=== PATIENT | male | born 1960 | race Caucasian/White ===

== ENCOUNTER 2017-08-17 13:50 | Inpatient (IN) | payer OTHER ==
[2017-08-17] VITALS (11 sets, daily range): BP systolic 98–165; BP diastolic 61–88
[~2017-08-17] VITALS: Ht 190.5 cm; Wt 79.0 kg
[~2017-08-17 13:50] MED LIST: LEVO750T31 PO
--- NOTE | 2017-08-17 14:55 | RAD ---
Two-view chest x-ray History: Shortness of air. History of lung cancer chemotherapy and radiation therapy. Comparison: December 17, 2007. Findings: Bilateral upper lobe consolidative lung infiltrates and biapical pleural thickening is seen more prominent on the right side. Small left-sided pleural effusion and a larger small to moderate size right-sided pleural effusion are seen. There is a wedge-shaped infiltrate within the left lung base. This could be due to tenting of the left hemidiaphragm from scarring and volume loss if a partial pneumonectomy has been performed on the left side. If not, a left lung base nodular mass or infiltrate is possible. No pneumothorax is seen. The heart size and mediastinum are stable. A right IJ Port-A-Cath is in place and tip is seen within the lower SVC at the junction with right atrium. The osseous structures appear intact. IMPRESSION: Bilateral upper lobe consolidative lung infiltrate. Wedge-shaped infiltrate of the left lung base. Bilateral pleural effusions.
[2017-08-17] MEDS ORDERED: IPRATRPIUM/ALBUTEROL 0.5/2.5MG 3 ML NEBU. ONE (14:57)
[2017-08-17] MEDS ORDERED: ALBUTEROL SULFATE 2.5 MG/3 ML NEBU. CONT NEB ONE (15:00)
[2017-08-17] MEDS ORDERED: IV NORMAL SALINE 1,000ML 1,000 ML IV ONE (15:00)
[2017-08-17 15:46] LABS: BASO % 1 % (0-3); EOS # 0.1 x10^3/uL (0.0-0.7); EOS % 1 % (0-3); HEMATOCRIT 32.7 % (39.0-53.0); HEMOGLOBIN 11.2 g/dL (13.0-17.5); LYMPH # 0.7 x10^3/uL (1.0-4.8); LYMPH % 9 % (24-48); MEAN CORPUSCULAR HEMOGLOBIN 36 pg (25-35); MEAN CORPUSCULAR HGB CONC 34 g/dL (31-37); MEAN CORPUSCULAR VOLUME 104 fL (79-100); MONO # 1.2 x10^3/uL (0.0-1.1); MONO % 15 % (0-9); NEUT # 5.7 x10^3uL (1.8-7.7); NEUT % 74 % (31-73); PLATELET COUNT 343 x10^3/uL (140-400); RED BLOOD COUNT 3.15 x10^6/uL (4.30-5.70); RED CELL DISTRIBUTION WIDTH 14.2 % (11.5-14.5); WHITE BLOOD COUNT 7.7 x10^3/uL (4.0-11.0)
--- NOTE | 2017-08-17 15:51 | PHYS DOC ---
Past History Past Medical History: Cancer Past Surgical History: Appendectomy, Other Alcohol Use: Occasionally Drug Use: None Adult General Chief Complaint Chief Complaint: COUGH HPI HPI Patient is a 57 year old M who presents with cough congestion and shortness of breath over the past 3-4 days. He feels that his symptoms were gradual in onset and gradually worsening. He feels that his current symptoms are constant. He feels that his symptoms are significantly worse with minimal activity, for example walking 10 feet he becomes significantly short of breath. He does describe intermittent associated chest pain. His risk factors include a history of lung cancer with a partial lung resection. Review of Systems Review of Systems Constitutional: Denies fever, sweats or chills [] Eyes: Denies change in visual acuity, redness, or eye pain [] HENT: Denies nasal congestion or sore throat [] Respiratory: Negative except history of present illness Cardiovascular: No additional information not addressed in HPI [] GI: Denies abdominal pain, nausea, vomiting, bloody stools or diarrhea [] : Denies dysuria or hematuria [] Musculoskeletal: Denies back pain or joint pain [] Integument: Denies rash or skin lesions [] Neurologic: Denies headache, focal weakness or sensory changes [] Endocrine: Denies polyuria or polydipsia [] Family History Family History Noncontributory Current Medications Current Medications Medications reviewed Current Medications Medications (Trade) Dose Ordered Sig/Shawn Start Time Stop Time Status Last Admin Dose Admin Albuterol Sulfate (Ventolin) 10 mg 1X ONCE 08/17/17 15:00 08/17/17 15:11 DC 08/17/17 15:03 10 MG Albuterol/ Ipratropium (Duoneb) 3 ml STK-MED ONCE 08/17/17 14:57 08/17/17 14:58 DC Ceftriaxone Sodium 1 gm/ Sodium Chloride 50 ml @ 100 mls/hr 1X ONCE 08/17/17 15:30 08/17/17 15:59 Sodium Chloride 1,000 ml @ 1,000 mls/hr 1X ONCE 08/17/17 15:00 08/17/17 15:59 Allergies Allergies Allergies Coded Allergies Type Severity Reaction Last Updated Verified No Known Drug Allergies 08/17/17 No Physical Exam Physical Exam Constitutional: Well developed, well nourished, no acute distress, ill-appearing HENT: Normocephalic, atraumatic, bilateral external ears normal, oropharynx moist, no oral exudates, nose normal. [] Eyes: EOMI, conjunctiva normal, no discharge. [] Neck: Normal range of motion, no tenderness, supple, no stridor. [] Cardiovascular:Heart rate regular rhythm, Lungs & Thorax: Diminished breath sounds bilaterally with rhonchi and rales noted in bilateral upper lobes. Mild and story an extra wheezing noted Abdomen: Bowel sounds normal, soft, no tenderness, no masses, no pulsatile masses. [] Skin: Warm, dry, no erythema, no rash. [] Back: No tenderness, no CVA tenderness. [] Extremities: No tenderness, no cyanosis, no clubbing, ROM intact, no edema. [] Neurologic: Alert and oriented X 3, normal motor function, normal sensory function, no focal deficits noted. [] Psychologic: Affect normal, judgement normal, mood normal. [] Current Patient Data Vital Signs Vital Signs Date Time Temp Pulse Resp B/P (MAP) Pulse Ox O2 Delivery O2 Flow Rate FiO2 08/17/17 15:03 98 Room Air 08/17/17 14:15 125 22 136/77 (96) 08/17/17 14:15 98.2 Lab Results Laboratory Tests Test 08/17/17 15:36 White Blood Count 7.7 x10^3/uL (4.0-11.0) Red Blood Count 3.15 x10^6/uL (4.30-5.70) Hemoglobin 11.2 g/dL (13.0-17.5) Hematocrit 32.7 % (39.0-53.0) Mean Corpuscular Volume 104 fL (79-100) Mean Corpuscular Hemoglobin 36 pg (25-35) Mean Corpuscular Hemoglobin Concent 34 g/dL (31-37) Red Cell Distribution Width 14.2 % (11.5-14.5) Platelet Count 343 x10^3/uL (140-400) Neutrophils (%) (Auto) 74 % (31-73) Lymphocytes (%) (Auto) 9 % (24-48) Monocytes (%) (Auto) 15 % (0-9) Eosinophils (%) (Auto) 1 % (0-3) Basophils (%) (Auto) 1 % (0-3) Neutrophils # (Auto) 5.7 x10^3uL (1.8-7.7) Lymphocytes # (Auto) 0.7 x10^3/uL (1.0-4.8) Monocytes # (Auto) 1.2 x10^3/uL (0.0-1.1) Eosinophils # (Auto) 0.1 x10^3/uL (0.0-0.7) Basophils # (Auto) 0.0 x10^3/uL (0.0-0.2) Sodium Level 138 mmol/L (136-145) Potassium Level 3.7 mmol/L (3.5-5.1) Chloride Level 98 mmol/L (98-107) Carbon Dioxide Level 30 mmol/L (21-32) Anion Gap 10 (6-14) Blood Urea Nitrogen 8 mg/dL (8-26) Creatinine 0.9 mg/dL (0.7-1.3) Estimated GFR (Cockcroft-Gault) 87.0 Glucose Level 124 mg/dL (70-99) Lactic Acid Level 2.5 mmol/L (0.4-2.0) Calcium Level 9.4 mg/dL (8.5-10.1) Magnesium Level 1.4 mg/dL (1.8-2.4) EKG EKG [] Radiology/Procedures Radiology/Procedures Chest x-ray Impressions: Bilateral upper lobe consolidation, wedge shaped infiltrate in the left lung base, bilateral pleural effusions noted Course & Med Decision Making Course & Med Decision Making Pertinent Labs and Imaging studies reviewed. (See chart for details) Due to [place] history of lung cancer, extensive findings on chest x-ray, and minimal improvement with more than 3 breathing treatments in the emergency room inpatient management was recommended Dragon Disclaimer Dragon Disclaimer This chart was dictated in whole or in part using Voice Recognition software in a busy, high-work load, and often noisy Emergency Department environment. It may contain unintended and wholly unrecognized errors or omissions. Departure Departure: Impression: Primary Impression: Bilateral pleural effusion Additional Impression: Multifocal pneumonia Disposition: ADMITTED INPATIENT Condition: STABLE Referrals: NATALIE KINNEY MD (PCP) Problem Qualifiers NASIR CABALLERO MD Aug 17, 2017 15:51
[2017-08-17 15:56] LABS: CALCIUM 9.4 mg/dL (8.5-10.1); CREATININE 0.9 mg/dL (0.7-1.3); MAGNESIUM 1.4 mg/dL (1.8-2.4); POTASSIUM 3.7 mmol/L (3.5-5.1)
[2017-08-17] MEDS ORDERED: IV NORMAL SALINE 50ML 50 ML ONE ×3 (16:13→16:19)
[2017-08-17] MEDS ORDERED: cefTRIAXone SODIUM 1 GM VIAL IV ONE ×2 (16:13→16:19)
[2017-08-17] MEDS ORDERED: MAGNESIUM SULFATE 2GM 50 ML IV ONE (16:30)
[2017-08-17] MEDS ORDERED: AZITHROMYCIN 500 MG in IV NORMAL SALINE 250ML 250 ML IV SCH (17:00)
[2017-08-17] MEDS ORDERED: IOHEXOL 300 MG/ML 75 ML VIAL. IV ONE (17:00)
--- NOTE | 2017-08-17 17:24 | RAD ---
Chest CT with contrast Clinical indications: History of right upper lobe resection due to lung cancer. History of pneumonia. Abnormal chest x-ray today. Technique: After IV infusion of 75 cc of Omnipaque 300, helical CT scanning of the chest was performed. PQRS Compliance Statement: One or more of the following individualized dose reduction techniques were utilized for this examination: 1. Automated exposure control 2. Adjustment of the mA and/or kV according to patient size 3. Use of iterative reconstruction technique Comparison: None available. Findings: Moderate-sized right-sided pleural effusion and small left-sided pleural effusion is seen. The right upper lobe appears to have been surgically resected given the lack of a right upper lobe bronchus. There is infiltrate present within the hyperexpanded anterior aspect of the right lower lobe and there is an infiltrate present within the medial aspect of the hyperexpanded right middle lobe. There is a focal fluid collection within the anterior aspect of this portion of the right middle lobe. 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 Finding could be secondary to radiation pneumonitis. Certainly an underlying pneumonia may be present as well. There is a consolidative lung infiltrate within the left upper lobe. There is a small infiltrate present within the perihilar region of the superior segment of the left lower lobe. There is a small infiltrate present within the medial basal segment of the left lower lobe. Cicatricial bronchiectasis is present within the left upper lobe. No pneumothorax is seen. There is mild dilatation of the proximal thoracic esophagus. Small amount of food or debris is present within this portion of the rest of esophagus. No adrenal mass is evident. The spleen is not enlarged. There is a lymph node present within the right paratracheal region measuring 17 mm in size. No focal aneurysmal dilatation or dissection of the thoracic aorta is seen. Heart size is normal and no pericardial effusion is seen. Mild calcified atheromatous disease of the coronary arteries is seen. A small amount of pericardial effusion is seen. No osteolytic process is seen. IMPRESSION: Right upper lobe resection. Bilateral lung infiltrates with cicatricial bronchiectasis. The findings could reflect radiation pneumonitis but certainly underlying pneumonia may be present on either side. Moderate-sized right-sided pleural effusion and small left-sided pleural effusion. Normal heart size. Small pericardial effusion. Mild calcified atheromatous disease of the coronary arteries. 17 mm right paratracheal lymph node which may be reactive in nature but malignant metastatic lymphadenopathy is certainly possible given the patient's history. Mild dilatation of the thoracic esophagus. There is fluid or debris present within this portion of the thoracic esophagus. This may be secondary to esophageal dysmotility but a esophageal stricture is possible if there is swallowing difficulty. There does appear to be diffuse wall thickening of the thoracic esophagus. This may secondary to esophagitis.
[2017-08-17] MEDS ORDERED: OMEP20TA63 PO (18:02)
[2017-08-17] MEDS: IV NORMAL SALINE 1,000ML 1,000 ML IV SCH (19:32)
[2017-08-17] MEDS: AZITHROMYCIN 500 MG in IV NORMAL SALINE 250ML 250 ML IV SCH (19:59)
[2017-08-17] MEDS ORDERED: IV NORMAL SALINE 500ML 500 ML IV PRN (20:45)
[2017-08-17] MEDS ORDERED: NOREPINEPHRINE BITARTRATE 16 MG in IV NORMAL SALINE 250ML 250 ML IV PRN (20:45)
[2017-08-17] MEDS: NORMAL SALINE IV SCH ×2 (20:52→21:33)
[2017-08-17] MEDS: PANTOPRAZOLE 40 MG TABLET. PO SCH (20:52)
[2017-08-18] VITALS (9 sets, daily range): BP systolic 113–144; BP diastolic 63–74
[2017-08-18] MEDS: IV NORMAL SALINE 1,000ML 1,000 ML IV SCH ×2 (01:46→13:42)
[2017-08-18 05:51] LABS: CALCIUM 8.5 mg/dL (8.5-10.1); CREATININE 0.7 mg/dL (0.7-1.3); GFR 116.2; POTASSIUM 3.6 mmol/L (3.5-5.1)
[2017-08-18 06:11] LABS: BASO % 1 % (0-3); EOS # 0.1 x10^3/uL (0.0-0.7); EOS % 1 % (0-3); HEMATOCRIT 24.5 % (39.0-53.0); LYMPH # 0.2 x10^3/uL (1.0-4.8); LYMPH % 4 % (24-48); MEAN CORPUSCULAR HEMOGLOBIN 35 pg (25-35); MEAN CORPUSCULAR HGB CONC 34 g/dL (31-37); MEAN CORPUSCULAR VOLUME 104 fL (79-100); MONO # 0.9 x10^3/uL (0.0-1.1); MONO % 16 % (0-9); NEUT # 4.4 x10^3uL (1.8-7.7); NEUT % 78 % (31-73); PLATELET COUNT 262 x10^3/uL (140-400); RED BLOOD COUNT 2.36 x10^6/uL (4.30-5.70); RED CELL DISTRIBUTION WIDTH 13.9 % (11.5-14.5); WHITE BLOOD COUNT 5.7 x10^3/uL (4.0-11.0)
[2017-08-18 06:36] LABS: HEMOGLOBIN 8.4 g/dL (13.0-17.5)
[2017-08-18] MEDS: PANTOPRAZOLE 40 MG TABLET. PO SCH ×2 (08:41→21:20)
[2017-08-18] MEDS: MAGNESIUM SULFATE 2GM 50 ML IV SCH (08:43)
[2017-08-18] MEDS ORDERED: PNEUMOC CONJ VACC 23-VALENT 0.5 ML VIAL. VAX IM ONE (09:00)
[2017-08-18] MEDS: LACTOBACILLUS ACIDOPH & BULGAR 1 TABLET. PO SCH ×2 (11:21→21:20)
--- NOTE | 2017-08-18 14:21 | HP ---
ADMIT DATE: REASON FOR ADMISSION: Cough, shortness of breath. HISTORY OF PRESENT ILLNESS: This is a 57-year-old male with a history of lung cancer with a lung resection done one year ago. Reported a 3 to 4-day problem with cough, congestion, and shortness of breath. He did have a chest x-ray up at [place]. There was a delay in one day of it being read and he was called and told to come to the hospital. He has significant shortness of breath with exertion. PAST MEDICAL HISTORY: 1. Lung cancer one year ago, has had subsequent chemotherapy and radiation. 2. 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 SOCIAL HISTORY: He is a former smoker and quit 6 years ago. ALLERGIES: None. HOME MEDICATIONS: He was on Levaquin, which has been held and Prilosec being given for his esophagitis. HABITS: States again smoked, quit 6 years ago. 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 No drugs or alcohol. REVIEW OF SYSTEMS: He has had a 40-pound weight loss, some dysphagia, which has improved with dilatation of his esophagus. No fever, no sore throat as per HPI. OBJECTIVE: VITAL SIGNS: Height 75 inches, weight 170.31 pounds with a BMI of 21.7, blood pressure is 121/63, temperature 98.1, T-max is 98.9. He had a high pulse of 125, now it is down to 86 with hydration and did have one sat of 92% on room air, but otherwise has been 98% on room air. GENERAL: Color is slightly pale. HEENT: His eyes are clear. Nose patent. His tongue was moist. Posterior pharynx normal. NECK: Supple. No adenopathy. No supraclavicular adenopathy. LUNGS: Clear on the left, some crackles on the right. CARDIOVASCULAR: Regular rhythm and rate. ABDOMEN: Soft, nontender, no masses palpated. EXTREMITIES: Without edema, no cords. Negative Homans. LABORATORY DATA: CBC after hydration, his hemoglobin is 8.4, but did not know what his normal is and MCV is 104. Magnesium 1.4, now 1.7. His lactic acid was 3.3. His fibrinogen was 460. IMAGING DATA: CAT scan of the chest shows right upper lobe resection, bilateral lung infiltrates, probably some radiation pneumonitis, moderate-sized right pleural effusion, small pericardial effusion and does have some evidence of ____ dilatation and some possibly esophageal stricture. ASSESSMENT: 1. Pneumonia. 2. Bilateral lung infiltrates. 3. Possible radiation pneumonitis. 4. Lactic acidosis. 5. Moderate right pulmonary effusion. 6. Underlying lung cancer. 7. Esophageal dysmotility or stricture. PLAN: The patient does feel better today after hydration starting antibiotics. We will do antibiotics. We will repeat the CAT scan tomorrow, use oxygen as needed. He has had plenty of fluids and we will see if it is necessary for the Pulmonary to have his lung drained if it does not resolve. MICHELLE CARRILLO DO DR: SELVIN/janet JOB#: [id number] / [id number]
[2017-08-18] MEDS: AZITHROMYCIN 500 MG in IV NORMAL SALINE 250ML 250 ML IV SCH (20:30)
[2017-08-19] MEDS: IV NORMAL SALINE 1,000ML 1,000 ML IV SCH ×2 (00:48→13:10)
[2017-08-19 05:23] LABS: BASO # 0.1 x10^3/uL (0.0-0.2); BASO % 1 % (0-3); EOS # 0.3 x10^3/uL (0.0-0.7); EOS % 4 % (0-3); HEMATOCRIT 24.1 % (39.0-53.0); HEMOGLOBIN 8.3 g/dL (13.0-17.5); LYMPH # 0.3 x10^3/uL (1.0-4.8); LYMPH % 5 % (24-48); MEAN CORPUSCULAR HEMOGLOBIN 36 pg (25-35); MEAN CORPUSCULAR HGB CONC 35 g/dL (31-37); MEAN CORPUSCULAR VOLUME 104 fL (79-100); MONO # 0.9 x10^3/uL (0.0-1.1); MONO % 14 % (0-9); NEUT # 4.6 x10^3uL (1.8-7.7); NEUT % 75 % (31-73); PLATELET COUNT 309 x10^3/uL (140-400); RED BLOOD COUNT 2.33 x10^6/uL (4.30-5.70); RED CELL DISTRIBUTION WIDTH 14.2 % (11.5-14.5); WHITE BLOOD COUNT 6.1 x10^3/uL (4.0-11.0)
[2017-08-19 05:33] LABS: ALBUMIN 2.2 g/dL (3.4-5.0); ALBUMIN/GLOBULIN RATIO 0.6 (1.0-1.7); CALCIUM 8.3 mg/dL (8.5-10.1); CREATININE 0.7 mg/dL (0.7-1.3); GFR 116.2; MAGNESIUM 1.6 mg/dL (1.8-2.4); POTASSIUM 3.5 mmol/L (3.5-5.1); TOTAL BILIRUBIN 0.4 mg/dL (0.2-1.0); TOTAL PROTEIN 5.8 g/dL (6.4-8.2)
[2017-08-19 05:38] VITALS: BP 138/79
[2017-08-19] MEDS ORDERED: MAGNESIUM SULFATE 2GM 50 ML IV ONE (08:00)
[2017-08-19] MEDS: MAGNESIUM SULFATE 2GM 50 ML IV SCH (09:00)
[2017-08-19] MEDS: LACTOBACILLUS ACIDOPH & BULGAR 1 TABLET. PO SCH ×2 (09:20→20:08)
[2017-08-19] MEDS: PANTOPRAZOLE 40 MG TABLET. PO SCH ×2 (09:20→20:08)
--- NOTE | 2017-08-19 10:11 | RAD ---
PA and lateral chest radiographs 08/19/2017 Clinical history: lung cancer. History of pneumonia. PA and lateral digital radiographs of the chest were obtained. Comparison study is dated 08/17/2017. A right internal jugular Odtfoa-m-Liit type catheter is unchanged in position. The cardiac silhouette is normal in size. The thoracic aorta is minimally tortuous. Blunting of both costophrenic angles is seen consistent with small moderate-sized bilateral pleural effusions, right greater than left. Areas of scarring are seen involving both upper lobes, left greater than right, unchanged. Apical pleural thickening is seen, right greater than left. Patchy lingular infiltrate and/or atelectasis is seen, unchanged. No pneumothorax is noted. The osseous structures are unchanged. Impression: 1. Cfwqi-mr-sgzbyeuo sized bilateral pleural effusions, right greater than left, unchanged. 2. Patchy lingular atelectasis and/or infiltrate, unchanged.
[2017-08-19 11:35] VITALS: BP 124/78
[2017-08-19] MEDS ORDERED: IOHEXOL 300 MG/ML 75 ML VIAL. IV ONE (13:00)
--- NOTE | 2017-08-19 13:35 | EKG ---
[address] [address] Test Date: 2017-08-19 Test Time: 13:07:41 Pat Name: KRIS TERAN Department: Room: 115 A Gender: M Air Analysis Technician: : 1960 Requested By: MICHELLE CARRILLO Order Number: [id number] Reading MD: Measurements Intervals [place] Rate: 103 P: NE: QRS: 26 QRSD: 72 T: 34 QT: 324 QTc: 426 Interpretive Statements ACCELERATED JUNCTIONAL RHYTHM LOW LIMB LEAD VOLTAGE QRS(T) CONTOUR ABNORMALITY CONSIDER ANTEROLATERAL MYOCARDIAL DAMAGE ABNORMAL ECG RI6.01 No previous ECG available for comparison
--- NOTE | 2017-08-19 14:36 | RAD ---
CTA of the chest with contrast (pulmonary embolism protocol) 08/20/2017 Clinical History: History of lung cancer. Increasing shortness of breath.. Technique: After the intravenous administration of 75 mL of Isovue-370, contiguous, 2 mm axial sections were obtained through the chest. 3-D MIP coronal and sagittal reconstructed images were obtained. One or more of the following individualized dose reduction techniques were utilized for this study: 1. Automated exposure control. 2. Adjustment of the mA and/or kV according to patient size. 3. Use of iterative reconstruction technique. Findings: Comparison study is dated 08/17/2017. A right internal jugular Khebjy-y-Huzd type catheter is unchanged in position. No filling defects are seen within the major branches of either pulmonary artery. There is no CT evidence of pulmonary embolism. The patient appears to be post right upper lobe resection. Mild atherosclerotic calcification of the thoracic aorta and its branches is noted. The thoracic aorta is tortuous but tapers normally. The heart is normal in size. There are small to moderate bilateral pleural effusions. Areas of scarring are seen involving both upper lobes. Focal area of atelectasis and/or infiltrate is seen involving the left lower lobe, unchanged. No pneumothorax is seen. Bronchiectasis is seen superior aspect of both lungs, left greater than right. Impression: There is no CT evidence of pulmonary embolism.
[2017-08-19 15:03] VITALS: BP 129/79
--- NOTE | 2017-08-19 19:45 | PN ---
DATE: PROBLEMS: 1. Dyspnea on exertion. 2. Bilateral lung infiltrates. 3. Radiation pneumonitis. 4. Lactic acidosis. 5. Moderate right pleural effusion. 6. Underlying lung cancer. 7. Esophageal dysmotility or stricture. 8. Hypomagnesemia. 9. Severe protein calorie malnutrition. 10. Macrocytic anemia SUBJECTIVE: Feels about the same today. He is still short of breath with exertion, particularly going to the bathroom and coming back. He is fine at rest. The lowest sat he had is 92%. He has not been on oxygen. 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 OBJECTIVE: VITAL SIGNS: Temp 98.2, pulse of 100, respirations 20, blood pressure 124/78, pulse ox is 94% on room air. GENERAL: His color is pale. HEENT: He is comfortable at rest. NECK: Supple. LUNGS: With very coarse wheezing breath sounds on the right. Clear on the left. CARDIOVASCULAR: Regular rhythm and rate. ABDOMEN: Soft, nontender. EXTREMITIES: Without edema. LABORATORY DATA: Today, hemoglobin is 8.3, hematocrit 24.1, MCV 104. Chemistry: His albumin is 2.2, alkaline phosphatase 124, magnesium 1.6. PLAN: Discuss with oncologist environmental science program director at [facility]. Recommend doing a D-dimer. A PA CAT scan looking at the pulmonary artery for pulmonary embolism, and also doing an EKG, which was done and was essentially unremarkable. We will continue IV antibiotics today. The oncologist has no problem with him having a tap tomorrow, so we will go ahead and set that up as well and I have let him know about that. We will continue the antibiotics for now. MICHELLE CARRILLO DO DR: SELVIN/janet JOB#: [id number] / [id number]
[2017-08-19] MEDS: AZITHROMYCIN 500 MG in IV NORMAL SALINE 250ML 250 ML IV SCH (19:55)
[2017-08-19 20:48] VITALS: BP 135/85
[2017-08-19 23:42] VITALS: BP 162/85
[2017-08-20] MEDS: IV NORMAL SALINE 1,000ML 1,000 ML IV SCH ×2 (00:39→10:28)
[2017-08-20 06:12] VITALS: BP 142/84
[2017-08-20] MEDS: PANTOPRAZOLE 40 MG TABLET. PO SCH ×2 (08:12→20:37)
[2017-08-20] MEDS: LACTOBACILLUS ACIDOPH & BULGAR 1 TABLET. PO SCH ×2 (08:12→20:37)
[2017-08-20] MEDS: MAGNESIUM SULFATE 2GM 50 ML IV SCH (08:42)
[2017-08-20 10:47] VITALS: BP 159/90
[2017-08-20 14:39] VITALS: BP 155/88
[2017-08-20 14:41] LABS: BF CLARITY HAZY; BF COLOR GREEN; BF SOURCE PERITONEAL
[2017-08-20 14:42] LABS: BF WBC COUNT 245
[2017-08-20 14:43] LABS: BF RBC COUNT 1631
--- NOTE | 2017-08-20 14:51 | RAD ---
INDICATION: thoracentesis, post exam COMPARISON: 08/19/2017 FINDINGS: 2 views of chest obtained. Port is again identified with tip at the expected location of the SVC. Cardiac silhouette is not grossly enlarged. Repeat demonstration of bilateral apical opacities measuring up to 25 mm on the left and 27 mm on the right. Could be secondary to some fluid within the region. There is repeat demonstration of blunting of the costophrenic angles bilaterally likely from the patient's known pleural fluid within the region. Repeat demonstration of multifocal opacities in the mid to upper lungs bilaterally. Degenerative changes of spine. IMPRESSION: Repeat demonstration of bilateral blunting of the costophrenic angles which could be secondary to the patient's known pleural effusion bilaterally. Slight interval decrease in the pleural fluid at the right lung base in comparison to one day prior post thoracentesis. A definite pneumothorax is not seen at this time. Repeat demonstration of apical opacities which could be secondary to a combination of pleural fluid within the region as well as the patient's known airspace disease within the region. Repeat demonstration of opacities within the bilateral mid to upper lungs. Again differential considerations include causes such as posttreatment changes with areas of scarring, atelectasis, infiltrate but recurrent neoplasm within the region is not excluded on this examination.
--- NOTE | 2017-08-20 15:26 | RAD ---
INDICATION: pleural effusion, dyspnea COMPARISON: CT from August 19, 2017 FINDINGS: The patient was brought to the procedure suite and the procedure was discussed including the risks of bleeding, infection, damage to the adjacent structures as well as pneumothorax which could require chest tube placement and informed consent was obtained. At that point ultrasound images were obtained of the right chest which demonstrated a moderate pleural effusion. The skin overlying this area was marked, cleaned and prepared in the normal sterile fashion. Subcutaneous anesthesia was performed as well as a skin anoop and a safety centesis catheter was advanced until there was return of pleural fluid. Ultrasound images were obtained at this time and confirmed that the catheter is within the pleural fluid. At this point in time the catheter tubing was connected to a vacuum bottle and approximately 1 L of yellow-colored fluid was aspirated with a sample sent to the laboratory. Ultrasound images obtained at this point demonstrated decrease in size of the pleural fluid but there is still some pleural fluid remaining. The procedure was terminated at this point however given the added risk of obtaining more fluid. The catheter was then removed and Vaseline gauze was placed over the puncture site with the area cleaned and bandage placed over the region. The patient was asymptomatic throughout the procedure and there was no immediate complication. A postprocedure chest radiograph was obtained. IMPRESSION: Technically successful right-sided thoracentesis with removal of approximately 1 L of yellow color fluid with a sample sent to the laboratory.
[2017-08-20 15:33] LABS: BF MON % 98 %; BF PMN % 2 %
[2017-08-20] MEDS: MAGNESIUM OXIDE 400 MG TABLET PO SCH ×2 (16:30→20:37)
[2017-08-20 20:10] VITALS: BP 103/65
[2017-08-20 23:43] VITALS: BP 146/87
--- NOTE | 2017-08-21 04:01 | PN ---
DATE: 08/20/2017 SUBJECTIVE: The patient is a 57-year-old male patient who was admitted with increasing shortness of breath on exertion. 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 He had a PET scan, which showed that he has nodule in his right upper lobe of the lung for which he underwent right upper lobe lobectomy and on followup, he was found to have enlarged cervical lymph nodes that was biopsied and underwent radiation and chemotherapy. He completed his radiation treatment at the end of March and chemotherapy on 07/16/2017, and he started complaining of this shortness of breath and excessive congestion on 08/07/2017. He also had developed dysphagia to solid and liquid, and has had esophageal stricture dilatation, although he continued to have problems with solids. He has lost about 40 pounds. He was extensively investigated. A chest x-ray and a CT scan of the chest with PE protocol, which showed no evidence of pulmonary emboli; however, it did show that he has a large right-sided pleural effusion and probably pneumonia. So, he was started on IV antibiotics and he underwent this morning thoracentesis that was ultrasound-guided and the pleural fluid was sent for cell count with differential, cytology, pleural fluid, LDH, protein, glucose, and be sent also for culture and sensitivity. When I saw him this afternoon, he was sitting slightly propped up in bed, in no apparent distress. On questioning him, he stated that he felt much better as they drained about a liter of fluid. Apparently, a repeat chest x-ray showed no evidence of any pneumothorax. OBJECTIVE: GENERAL: When I examined him, he looked pale, but not jaundiced, cyanosis, or thyromegaly. No jugular venous distention. No limb edema. VITAL SIGNS: His heart rate was 112, blood pressure was 155/88, temperature was 98.4, respiratory rate 20, and oxygen saturation was 90% on room air. HEAD, EYES, EARS, NOSE AND THROAT: Showed normocephalic, atraumatic. NECK: Supple. HEART: Showed normal first and second heart sounds. No gallop, rub or murmur. CHEST: Clear to auscultation. No crepitation or rhonchi. ABDOMEN: Distended, soft, and nontender. No guarding or rigidity. No organomegaly. Hernial orifices intact. Bowel sounds normal. NEUROLOGIC: He was awake, alert, responding appropriately. Cranial nerves intact. He moves extremities without difficulty. He ambulates without assistance or assistive devices. His intake over the last 24 hours was 2,660, output was 2,650. LABORATORY DATA: His lab work as of yesterday showed a white cell count of 6,100, hemoglobin 8.3, hematocrit was 24, MCV 104, and platelet count of 333,000. His chemistry as of yesterday showed a serum sodium 139, potassium 3.5, chloride 105, bicarbonate 27, anion gap of 7, BUN 15, creatinine 0.7, estimated GFR was 116 mL per minute. His glucose was 97. Calcium was 8.3, magnesium was 1.8. Total bilirubin, AST, ALT, alkaline phosphatase were normal. Total protein was 5.8, albumin 2.2. His prothrombin time was 11, INR 1.1, aPTT was 26. D-dimer was high at 5.91 mg/dL, and fibrinogen was 460. The pleural fluid was apparently hazy green. The pH was 7.9 and there were 245 nucleated red cells, there were 1631 RBCs. His blood cultures are so far negative. ASSESSMENT: Shortness of breath, probably multifactorial including, 1. Community-acquired pneumonia. 2. Radiation pneumonitis. 3. Bilateral pleural effusion, more on the right side for which he underwent thoracentesis and about a liter of fluid was removed. Other issues include right upper lobe lung cancer, status post right upper lobectomy. 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 He has also developed esophageal stricture for which he underwent dilatation. He continued to have dysphagia to solids and has lost about 40 pounds. PLAN: My plan is to continue with IV antibiotic as he is now on Rocephin and Zithromax. I will discontinue IV fluid. We will replenish his magnesium, await the result of the pleural fluid analysis and if he remains stable tomorrow, he can be discharged, continue with oral antibiotics, and to follow with his oncologist at [facility]. GIL KELLY MD DR: NED/janet JOB#: [id number] / [id number]
[2017-08-21 05:31] LABS: BASO # 0.1 x10^3/uL (0.0-0.2); BASO % 1 % (0-3); EOS # 0.3 x10^3/uL (0.0-0.7); EOS % 5 % (0-3); HEMOGLOBIN 9.3 g/dL (13.0-17.5); LYMPH # 0.3 x10^3/uL (1.0-4.8); LYMPH % 5 % (24-48); MEAN CORPUSCULAR HEMOGLOBIN 35 pg (25-35); MEAN CORPUSCULAR HGB CONC 34 g/dL (31-37); MEAN CORPUSCULAR VOLUME 102 fL (79-100); MONO # 0.8 x10^3/uL (0.0-1.1); MONO % 15 % (0-9); NEUT # 4.3 x10^3uL (1.8-7.7); NEUT % 74 % (31-73); PLATELET COUNT 313 x10^3/uL (140-400); RED BLOOD COUNT 2.64 x10^6/uL (4.30-5.70); RED CELL DISTRIBUTION WIDTH 13.9 % (11.5-14.5); WHITE BLOOD COUNT 5.8 x10^3/uL (4.0-11.0)
[2017-08-21 05:45] LABS: ALBUMIN 2.2 g/dL (3.4-5.0); ALBUMIN/GLOBULIN RATIO 0.6 (1.0-1.7); CALCIUM 8.5 mg/dL (8.5-10.1); CREATININE 0.6 mg/dL (0.7-1.3); GFR 138.9; POTASSIUM 3.4 mmol/L (3.5-5.1); TOTAL BILIRUBIN 0.4 mg/dL (0.2-1.0); TOTAL PROTEIN 5.8 g/dL (6.4-8.2)
[2017-08-21 05:51] VITALS: BP 147/86
[2017-08-21] MEDS: PANTOPRAZOLE 40 MG TABLET. PO SCH (08:07)
[2017-08-21] MEDS: MAGNESIUM OXIDE 400 MG TABLET PO SCH ×2 (08:07→15:23)
[2017-08-21] MEDS: LACTOBACILLUS ACIDOPH & BULGAR 1 TABLET. PO SCH (08:07)
[2017-08-21 10:53] VITALS: BP 133/78
[2017-08-21] MEDS ORDERED: CEFP200T PO (13:03)
[2017-08-21] MEDS ORDERED: AZIT250T PO (13:05)
[2017-08-21 13:43] VITALS: BP 120/75
--- NOTE | 2017-08-24 11:25 | PATHOLOGY ---
CYTOPATHOLOGY REPORT CLINICAL HISTORY: Pleural effusion, lung cancer, chemo, infiltrates, radiation pneumonitis SPECIMEN(S) RECEIVED: A.Pleural fluid FINAL DIAGNOSIS: Pleural fluid, ThinPrep and cell block: - No malignant cells identified. - Low cellularity specimen comprised of inflammatory cells and a few mesothelial cells. (JPM:mgr; 08/22/2017) PATHOLOGIST: Ambrose Jacob M.D. REPORT ELECTRONICALLY SIGNED BY: Ambrose Jacob M.D. DATE/TIME: 08/22/2017 14:39 GROSS PATHOLOGY: A. Pleural fluid: The specimen is submitted unfixed, labeled "Kris Cooper". Received by the Cytology Department is 20 mL of cloudy yellow fluid. One ThinPrep slide and a formalin fixed cell block were prepared. (lg10.24) GLYCERIN SUPERVISOR(S): BRODERICK Alfonso(ASCP) INITIAL CPT CODE(S): A; 02749, 88272 Professional services performed [place] [address] Technical services performed by [facility] at [address] [place] [address], [address], [place] [address]. Spencer Dumont, fax: PATIENT: KRIS COOPER /AGE: 4 1960 (Age: 57) SEX: M PATIENT #: [id number] ALT CASE #: SPECIMEN COLLECTION DATE: 08/20/2017 SPECIMEN RECEIVED DATE: 08/21/[address] [facility] [address] [place] [address], [address] [place] [address] PHONE: [phone] DIRECTOR: Mehdi Londono M.D. * * * END OF REPORT * * *
== END 2017-08-21 16:15 | disposition home or self-care (01) | DRG 193 ==
LOC: ER 13:50 → 1 SOUTH 17:40
PROVIDERS: ADMIT Family Medicine; ATTEND Family Medicine
PROC: 0W9930Z Drainage of Right Pleural Cavity with Drainage Device, Percutaneous Approach (ICD-10-PCS; principal; 2017-08-20)
DX: J18.9 Pneumonia, unspecified organism (principal); E43 Unspecified severe protein-calorie malnutrition; E87.2 Acidosis; J90 Pleural effusion, not elsewhere classified; E83.42 Hypomagnesemia; I31.3 Pericardial effusion (noninflammatory); K22.2 Esophageal obstruction; J70.0 Acute pulmonary manifestations due to radiation; D53.9 Nutritional anemia, unspecified; K22.4 Dyskinesia of esophagus; R13.10 Dysphagia, unspecified; R06.09 Other forms of dyspnea; Y84.2 Radiological procedure and radiotherapy as the cause of abnormal reaction of the patient, or of later complication, without mention of misadventure at the time of the procedure; Z85.118 Personal history of other malignant neoplasm of bronchus and lung; Z85.818 Personal history of malignant neoplasm of other sites of lip, oral cavity, and pharynx; Z87.891 Personal history of nicotine dependence; Z90.2 Acquired absence of lung [part of]; Z90.49 Acquired absence of other specified parts of digestive tract; Z68.21 Body mass index [BMI] 21.0-21.9, adult; Z92.21 Personal history of antineoplastic chemotherapy; Z92.3 Personal history of irradiation
CPT/HCPCS: 36415; 71020; 71260; 71275; 76942; 80048; 80053; 83605; 83615; 83735; 83986; 84157; 85018; 85025; 85049; 85379; 85384; 85610; 85730; 87040; 87071; 87075; 88112; 88305; 89050; 90732; 93005; 94640; 96361; 96365; 96368; J0456; J0696; J3475; J7050; J7613; Q9967; 99285-25; J7030

== ENCOUNTER 2019-10-07 11:55 | Inpatient (IN) | payer OTHER ==
[~2019-10-07] VITALS: Ht 190.5 cm; Wt 80.4 kg
[~2019-10-07 11:55] MED LIST changes: +AZIT250T PO; +CEFP200T PO; +OMEP20TA63 PO
[2019-10-07] MEDS ORDERED: IV NORMAL SALINE 1,000ML 1,000 ML IV SCH (12:03)
[2019-10-07] MEDS ORDERED: IPRATRPIUM/ALBUTEROL 0.5/2.5MG 3 ML NEBU. NEB ONE (12:15)
--- NOTE | 2019-10-07 12:48 | RAD ---
CHEST PA LATERAL History: Cough. Fever. History of lung cancer. Right lobectomy. Comparison: August 20, 2017. Findings: Right pleural effusion with increased loculated apical component compared to prior. Postoperative changes right upper lobectomy. Left pleural effusion with loculated apical component. Bilateral reticular and patchy opacities, similar compared to prior. Patchy right basilar opacity. Unchanged heart size. Impression: 1. Bilateral pleural effusions with loculated apical component, right greater than left. 2. Patchy left basilar opacity, may represent atelectasis or consolidation. 3. Bilateral upper lung reticular patchy opacities, similar compared to prior. Electronically signed by: Eduardo Mathews DO (10/07/2019 12:45 PM) [email or web address]
[2019-10-07 13:07] LABS: BASO % 0 % (0-3); EOS % 0 % (0-3); HEMATOCRIT 49.3 % (39.0-53.0); HEMOGLOBIN 16.7 g/dL (13.0-17.5); LYMPH # 0.2 x10^3/uL (1.0-4.8); LYMPH % 1 % (24-48); MEAN CORPUSCULAR HEMOGLOBIN 33 pg (25-35); MEAN CORPUSCULAR HGB CONC 34 g/dL (31-37); MEAN CORPUSCULAR VOLUME 98 fL (79-100); MONO # 1.6 x10^3/uL (0.0-1.1); MONO % 8 % (0-9); NEUT # 17.3 x10^3uL (1.8-7.7); NEUT % 91 % (31-73); PLATELET COUNT 283 x10^3/uL (140-400); RED BLOOD COUNT 5.02 x10^6/uL (4.30-5.70); RED CELL DISTRIBUTION WIDTH 13.9 % (11.5-14.5); WHITE BLOOD COUNT 19.1 x10^3/uL (4.0-11.0)
[2019-10-07 13:23] LABS: ALBUMIN 3.4 g/dL (3.4-5.0); ALBUMIN/GLOBULIN RATIO 0.7 (1.0-1.7); CALCIUM 9.8 mg/dL (8.5-10.1); CREATININE 0.8 mg/dL (0.7-1.3); GFR 98.9; POTASSIUM 3.9 mmol/L (3.5-5.1); TOTAL BILIRUBIN 1.5 mg/dL (0.2-1.0); TOTAL PROTEIN 8.6 g/dL (6.4-8.2)
[2019-10-07 13:42] LABS: INFLUENZA A PATIENT NEGATIVE (NEGATIVE); INFLUENZA B PATIENT NEGATIVE (NEGATIVE)
--- NOTE | 2019-10-07 13:43 | PHYS DOC ---
Past History Past Medical History: Cancer, COPD Past Surgical History: Appendectomy, Other Additional Past Surgical Histo: SALIVA GLAND REMOVED LEFT SIDE Alcohol Use: Occasionally Drug Use: None Adult General Chief Complaint Chief Complaint: COUGH HPI HPI Patient is a 59-year-old male who presents with complaint of cough and right upper chest discomfort that started yesterday. Patient also indicates that he is been running a fever for the last few days and yesterday was as high as 103. Patient rates the pain in his chest at a 5 out of 10 and states the pain is worsened with coughing and deep breathing. He does indicate he has a history of lung cancer on the right and had a lobectomy in the past. He states that he is still on chemotherapy. His last dose of chemotherapy was about a week ago. Patient states that he does have some shortness of breath that is worsened with exertion.[] Review of Systems Review of Systems Constitutional: Positive fever and chills [] Respiratory: Positive cough and shortness of breath [] Cardiovascular: No additional information not addressed in HPI [] GI: Denies abdominal pain, nausea, vomiting or diarrhea [] Integument: Denies rash or skin lesions [] Neurologic: Denies headache, focal weakness or sensory changes [] All other systems were reviewed and found to be within normal limits, except as documented in this note. Current Medications Current Medications Current Medications Medications (Trade) Dose Ordered Sig/Shawn Start Time Stop Time Status Last Admin Dose Admin Albuterol/ Ipratropium (Duoneb) 3 ml 1X ONCE 10/07/19 12:15 10/07/19 12:16 DC 10/07/19 12:50 3 ML Iohexol (Omnipaque 350 Mg/ml) 100 ml 1X ONCE 10/07/19 13:45 10/07/19 13:46 Sodium Chloride 1,000 ml @ 1,000 mls/hr Q1H 10/07/19 12:03 10/07/19 13:02 DC 10/07/19 12:56 1,000 MLS/HR Allergies Allergies Allergies Coded Allergies Type Severity Reaction Last Updated Verified No Known Drug Allergies 08/17/17 No Physical Exam Physical Exam Constitutional: Well developed, well nourished, no acute distress, non-toxic appearance. [] HENT: Normocephalic, atraumatic, bilateral external ears normal, oropharynx moist, no oral exudates, nose normal. [] Eyes: PERRLA, EOMI, conjunctiva normal, no discharge. [] Neck: Normal range of motion, no tenderness, supple, no stridor. [] Cardiovascular: Tachycardic rate with regular rhythm[] Lungs & Thorax: There are coarse rhonchi noted bilaterally with diminished breath sounds in the right upper and lower lung sanders to auscultation [] Abdomen: Bowel sounds normal, soft, no tenderness. [] Skin: Warm, dry, no erythema, no rash. [] Extremities: No tenderness, no cyanosis, no clubbing, ROM intact. [] Neurologic: Alert and oriented X 3, no focal deficits noted. [] Current Patient Data Vital Signs Vital Signs Date Time Temp Pulse Resp B/P (MAP) Pulse Ox O2 Delivery O2 Flow Rate FiO2 10/07/19 12:50 97 Room Air 10/07/19 12:05 97.9 112 20 Lab Results Laboratory Tests Test 10/07/19 12:49 White Blood Count 19.1 x10^3/uL (4.0-11.0) H Red Blood Count 5.02 x10^6/uL (4.30-5.70) Hemoglobin 16.7 g/dL (13.0-17.5) Hematocrit 49.3 % (39.0-53.0) Mean Corpuscular Volume 98 fL (79-100) Mean Corpuscular Hemoglobin 33 pg (25-35) Mean Corpuscular Hemoglobin Concent 34 g/dL (31-37) Red Cell Distribution Width 13.9 % (11.5-14.5) Platelet Count 283 x10^3/uL (140-400) Neutrophils (%) (Auto) 91 % (31-73) H Lymphocytes (%) (Auto) 1 % (24-48) L Monocytes (%) (Auto) 8 % (0-9) Eosinophils (%) (Auto) 0 % (0-3) Basophils (%) (Auto) 0 % (0-3) Neutrophils # (Auto) 17.3 x10^3uL (1.8-7.7) H Lymphocytes # (Auto) 0.2 x10^3/uL (1.0-4.8) L Monocytes # (Auto) 1.6 x10^3/uL (0.0-1.1) H Eosinophils # (Auto) 0.0 x10^3/uL (0.0-0.7) Basophils # (Auto) 0.0 x10^3/uL (0.0-0.2) Platelet Estimate Pending D-Dimer (Kelin) 1.23 mg/L (0.00-0.50) H Sodium Level 125 mmol/L (136-145) L Potassium Level 3.9 mmol/L (3.5-5.1) Chloride Level 86 mmol/L (98-107) L Carbon Dioxide Level 30 mmol/L (21-32) Anion Gap 9 (6-14) Blood Urea Nitrogen 8 mg/dL (8-26) Creatinine 0.8 mg/dL (0.7-1.3) Estimated GFR (Cockcroft-Gault) 98.9 BUN/Creatinine Ratio 10 (6-20) Glucose Level 123 mg/dL (70-99) H Lactic Acid Level 2.2 mmol/L (0.4-2.0) H Calcium Level 9.8 mg/dL (8.5-10.1) Total Bilirubin 1.5 mg/dL (0.2-1.0) H Aspartate Amino Transferase (AST) 12 U/L (15-37) L Alanine Aminotransferase (ALT) 13 U/L (16-63) L Alkaline Phosphatase 144 U/L (46-116) H Troponin I Quantitative < 0.017 ng/mL (0-0.055) KH-Vmx-Y-Type Natriuretic Peptide 1435 pg/mL (0-124) H Total Protein 8.6 g/dL (6.4-8.2) H Albumin 3.4 g/dL (3.4-5.0) Albumin/Globulin Ratio 0.7 (1.0-1.7) L EKG EKG EKG demonstrates sinus tachycardia with a rate of 115.[] Radiology/Procedures Radiology/Procedures [] Impressions: PROCEDURE: CT ANGIOGRAPHY CHEST CT ANGIOGRAPHY CHEST History: Dyspnea. Possible PE. History of lung cancer. Right upper lobectomy. Technique: CT of the chest was performed with contrast. PE protocol. Maximum intensity projection coronal and sagittal reconstructions were performed. Exposure: One or more of the following individualized dose reduction techniques were utilized for this examination: 1. Automated exposure control 2. Adjustment of the mA and/or kV according to patient size 3. Use of iterative reconstruction technique. Comparison: August 19, 2017 Findings: Chest: Postoperative changes right upper lobectomy. No evidence of pulmonary embolism. Loculated right apical fluid with adjacent pleural thickening. Small right and tiny left layering pleural effusion. Small foci of gas within the right basilar pleural fluid. Thickened rind along the right basilar pleural fluid. Right medial upper lung bronchiectasis and fibrotic changes with atelectasis. Right lower lung scarring. Pulmonary emphysema. Right upper lung irregular opacity measures 1 cm (series 4 image #71). Left lower lobe ground glass opacities. Left apical pleural thickening and fibrotic changes with bronchiectasis and scarring. Upper abdomen: The imaged upper abdomen is unremarkable. Bones: No pathologic osseous lesions. Impression: 1. No pulmonary embolism. 2. Small right basilar pleural effusion with foci of gas and thickened pleura, may relate to recent thoracentesis although recommend correlation for empyema. 3. Loculated right apical fluid with pleural thickening. 4. Left lower lobe ground glass opacities, may represent infectious or inflammatory process. 5. Right upper lung irregular nodular opacity, may relate to sequela of prior treatment. Recommend correlation with recent prior examinations to ensure stability. 6. Postoperative changes right upper lobectomy. Right anterior upper lung fibrotic changes and atelectasis. Electronically signed by: Eduardo Mathews DO (10/07/2019 3:00 PM) [email or web address] DICTATED AND SIGNED BY: EDUARDO MATHEWS DO DATE: 10/07/19 1500 Course & Med Decision Making Course & Med Decision Making Pertinent Labs and Imaging studies reviewed. (See chart for details) [] Dragon Disclaimer Dragon Disclaimer This electronic medical record was generated, in whole or in part, using a voice recognition dictation system. Departure Departure: Impression: Primary Impression: Community acquired pneumonia Additional Impression: Hyponatremia Disposition: ADMITTED INPATIENT Admitting Physician: Shaye Goldstein Condition: IMPROVED Referrals: NATALIE KINNEY MD (PCP) Problem Qualifiers Primary Impression: Community acquired pneumonia Laterality: left Lung location: lower lobe of lung Qualified Codes: J18.9 - Pneumonia, unspecified organism REBECCA LAZO Jr., DO Oct 07, 2019 13:43
[2019-10-07] MEDS ORDERED: IOHEXOL 350 MG/ML 100 ML VIAL. IV ONE (13:45)
[2019-10-07] MEDS ORDERED: CONTRAST GIVEN MC PRN (14:00)
[2019-10-07 14:56] LABS: % BANDS 15 % (0-9); % BASOS 0 % (0-3); % EOS 0 % (0-5); % LYMPHS 2 % (24-48); % MONOS 8 % (0-10); % SEGS 75 % (35-66)
[2019-10-07 14:57] LABS: PLT ESTIMATE ADEQUATE (ADEQUATE)
--- NOTE | 2019-10-07 15:03 | RAD ---
CT ANGIOGRAPHY CHEST History: Dyspnea. Possible PE. History of lung cancer. Right upper lobectomy. Technique: CT of the chest was performed with contrast. PE protocol. Maximum intensity projection coronal and sagittal reconstructions were performed. Exposure: One or more of the following individualized dose reduction techniques were utilized for this examination: 1. Automated exposure control 2. Adjustment of the mA and/or kV according to patient size 3. Use of iterative reconstruction technique. Comparison: August 19, 2017 Findings: Chest: Postoperative changes right upper lobectomy. No evidence of pulmonary embolism. Loculated right apical fluid with adjacent pleural thickening. Small right and tiny left layering pleural effusion. Small foci of gas within the right basilar pleural fluid. Thickened rind along the right basilar pleural fluid. Right medial upper lung bronchiectasis and fibrotic changes with atelectasis. Right lower lung scarring. Pulmonary emphysema. Right upper lung irregular opacity measures 1 cm (series 4 image #71). Left lower lobe ground glass opacities. Left apical pleural thickening and fibrotic changes with bronchiectasis and scarring. Upper abdomen: The imaged upper abdomen is unremarkable. Bones: No pathologic osseous lesions. Impression: 1. No pulmonary embolism. 2. Small right basilar pleural effusion with foci of gas and thickened pleura, may relate to recent thoracentesis although recommend correlation for empyema. 3. Loculated right apical fluid with pleural thickening. 4. Left lower lobe ground glass opacities, may represent infectious or inflammatory process. 5. Right upper lung irregular nodular opacity, may relate to sequela of prior treatment. Recommend correlation with recent prior examinations to ensure stability. 6. Postoperative changes right upper lobectomy. Right anterior upper lung fibrotic changes and atelectasis. Electronically signed by: Eduardo Mathews DO (10/07/2019 3:00 PM) [facility]
[2019-10-07] MEDS ORDERED: AZITHROMYCIN 250 MG TABLET. PO ONE (15:15)
[2019-10-07] MEDS ORDERED: MORPHINE SULFATE 2 MG/ML DISP.SYRIN. IV PRN (15:30)
[2019-10-07] MEDS ORDERED: ONDANSETRON PF 4 MG/2 ML VIAL. IV PRN (15:30)
[2019-10-07] MEDS ORDERED: IV NORMAL SALINE 50ML 50 ML ONE (15:34)
[2019-10-07] MEDS ORDERED: cefTRIAXone SODIUM 1 GM VIAL ONE (15:34)
[2019-10-07] MEDS: IV NORMAL SALINE 1,000ML 1,000 ML IV SCH (15:38)
[2019-10-07 15:59] LABS: BACTERIA,URINE 0 /HPF (0-FEW); BILIRUBIN,URINE NEG (NEG); CLARITY,URINE CLEAR; COLOR,URINE YELLOW; GLUCOSE,URINE NEG (NEG); NITRITE,URINE NEG (NEG); UROBILINOGEN,URINE 1 mg/dL (0.2 mg/dL); WBC,URINE OCC /HPF (0-4)
[2019-10-07] MEDS ORDERED: LEVO50TA PO (16:27)
[2019-10-07] MEDS ORDERED: MULT-245 PO (16:27)
[2019-10-07] MEDS ORDERED: FERR-36 PO (16:27)
[2019-10-07 16:36] VITALS: BP 128/72
[2019-10-07] MEDS: IPRATRPIUM/ALBUTEROL 0.5/2.5MG 3 ML NEBU. NEB SCH ×2 (17:40→22:31)
[2019-10-07] MEDS: ACETAMINOPHEN 325 MG TABLET PO PRN (17:40)
--- NOTE | 2019-10-07 17:48 | NUR ---
NURSING NOTE ADMIT PT ADMIT FROM ED VIA EMS AT 1620 FOR DX OF PNEUMONIA. PT REPORTS HX OF PAROTID CA AND LUNG CA WHICH HE IS STILL IN TREATMENT FOR EVERY 2 WEEKS. PT GIVEN TYLENOL FOR MILD TEMPERATURE. PT DECLINED DINNER STATES THAT THE SMELL IS MAKING HIM NAUSEATED. PT STATES HE DOES NOT USE NAUSEA MEDICATION BUT STATES THAT SOMETIMES HE JUST CANNOT EAT. PT DECLINED ANYTHING ELSE OFFERED. PT IS RESTING IN HIS BED. BREATHING TREATMENT GIVEN. WILL CONTINUE TO MONITOR. DARLINE JACOB.
--- NOTE | 2019-10-07 18:14 | NUR ---
NURSING NOTE CONSULT CONSULT CALLED TO [facility] FOR DR CREWS FOR ABNORMAL EKG, TACHYCARDIA, AND PT STATES NEVER SEEN CARDIOLOGY. DARLINE JACOB.
[2019-10-07 19:41] VITALS: BP 118/75
[2019-10-07] MEDS ORDERED: KETOROLAC 15 MG/ML VIAL. IVP PRN (21:15)
[2019-10-07] MEDS ORDERED: KETOROLAC 30 MG/ML VIAL. IVP ONE (21:15)
--- NOTE | 2019-10-07 21:16 | NUR ---
Repeat EKG performed per Dr. Odell and results reviewed, Dr. Odell believes pt to have pericarditis. Pt reports right anterior chest tightness with deep breaths. Currently on 2L supplemental O2 via NC for comfort. Dr. Goldstein notified, new orders for toradol 30mg IVP x1 now then 15mg IVP PRN q6hrs for pain. See eMAR.
[2019-10-07 22:35] VITALS: BP 104/69
[2019-10-08] MEDS: IV NORMAL SALINE 1,000ML 1,000 ML IV SCH ×2 (01:17→10:22)
[2019-10-08] MEDS: IPRATRPIUM/ALBUTEROL 0.5/2.5MG 3 ML NEBU. NEB SCH ×2 (05:08→11:28)
[2019-10-08] MEDS: LEVOTHYROXINE 50 MCG TABLET PO SCH (05:16)
[2019-10-08 05:21] VITALS: BP 124/77
[2019-10-08 06:21] LABS: BASO % 0 % (0-3); EOS % 0 % (0-3); HEMATOCRIT 42.1 % (39.0-53.0); HEMOGLOBIN 14.2 g/dL (13.0-17.5); LYMPH # 0.4 x10^3/uL (1.0-4.8); LYMPH % 3 % (24-48); MEAN CORPUSCULAR HEMOGLOBIN 33 pg (25-35); MEAN CORPUSCULAR HGB CONC 34 g/dL (31-37); MEAN CORPUSCULAR VOLUME 99 fL (79-100); MONO # 1.8 x10^3/uL (0.0-1.1); MONO % 12 % (0-9); NEUT # 12.1 x10^3uL (1.8-7.7); NEUT % 85 % (31-73); PLATELET COUNT 244 x10^3/uL (140-400); RED BLOOD COUNT 4.24 x10^6/uL (4.30-5.70); RED CELL DISTRIBUTION WIDTH 14.2 % (11.5-14.5); WHITE BLOOD COUNT 14.3 x10^3/uL (4.0-11.0)
[2019-10-08 06:28] LABS: ALBUMIN 2.5 g/dL (3.4-5.0); ALBUMIN/GLOBULIN RATIO 0.6 (1.0-1.7); CALCIUM 8.6 mg/dL (8.5-10.1); CREATININE 0.7 mg/dL (0.7-1.3); GFR 115.4; POTASSIUM 3.5 mmol/L (3.5-5.1); TOTAL BILIRUBIN 1.2 mg/dL (0.2-1.0); TOTAL PROTEIN 6.8 g/dL (6.4-8.2)
--- NOTE | 2019-10-08 07:54 | PDOC2 ---
CARDIAC CONSULT DATE OF CONSULT Date Of Consult DATE: 10/08/19 TIME: 07:50 REASON FOR CONSULT Reason for Consult Tachycardia REFERRING PHYSICIAN Referring Physician Dr. Goldstein SOURCE Source: Chart review, Patient HPI History of Present Illness This is a 59 yo male who presented secondary to cough productive of green sputum, right chest pain associated with cough, and fevers since Sunday. Has had some mild shortness of breath. No edema or orthopnea. Patient has a history of lung CA s/o right upper lobectomy. Is currently receiving chemotherapy infusion every two weeks. Denies any body aches. No dizziness or palpitations. Has had diaphoresis and chills associated with the fevers. Has been sinus tachycardic since arrival, which prompted this consult. PAST MEDICAL HISTORY Pulmonary: COPD, Other (lung CA) Endocrine: Hypothyroidism PAST SURGICAL HISTORY Past Surgical History: Appendectomy, Other (right upper lobectomy, left wrist surgery, left parotid gland removal) FAMILY HISTORY Family History: Cancer SOCIAL HISTORY Smoke: Quit (7 years ago) ALCOHOL: social Drugs: None Lives: Alone CURRENT MEDICATIONS Current Medications Current Medications Sodium Chloride 1,000 ml @ 1,000 mls/hr Q1H IV Last administered on 10/07/19at 12:56; Start 10/07/19 at 12:03; Stop 10/07/19 at 13:02; Status DC Albuterol/ Ipratropium (Duoneb) 3 ml 1X ONCE NEB Last administered on 10/07/19at 12:50; Start 10/07/19 at 12:15; Stop 10/07/19 at 12:16; Status DC Iohexol (Omnipaque 350 Mg/ml) 100 ml 1X ONCE IV Last administered on 10/07/19at 13:42; Start 10/07/19 at 13:45; Stop 10/07/19 at 13:46; Status DC Ceftriaxone Sodium 1 gm/ Sodium Chloride 50 ml @ 100 mls/hr 1X ONCE IV Last administered on 10/07/19at 15:38; Start 10/07/19 at 15:15; Stop 10/07/19 at 15:44; Status DC Azithromycin (Zithromax) 500 mg 1X ONCE PO Last administered on 10/07/19at 15:37; Start 10/07/19 at 15:15; Stop 10/07/19 at 15:17; Status DC Ondansetron HCl (Zofran) 4 mg PRN Q4HRS PRN IV NAUSEA/VOMITING; Start 10/07/19 at 15:30; Stop 10/08/19 at 15:29 Morphine Sulfate (Morphine 2mg Syringe) 2 mg PRN Q2HR PRN IV PAIN; Start 10/07/19 at 15:30; Stop 10/08/19 at 15:29 Sodium Chloride 1,000 ml @ 100 mls/hr Q10H IV Last administered on 10/08/19at 01:17; Start 10/07/19 at 15:17; Stop 10/08/19 at 15:16 Acetaminophen (Tylenol) 650 mg PRN Q4HRS PRN PO FEVER Last administered on 10/07/19at 17:40; Start 10/07/19 at 15:30; Stop 10/08/19 at 15:29 Albuterol/ Ipratropium (Duoneb) 3 ml RTQID NEB Last administered on 10/08/19at 05:08; Start 10/07/19 at 16:00; Stop 10/08/19 at 15:59 Sodium Chloride 50 ml @ As Directed STK-MED ONCE .ROUTE ; Start 10/07/19 at 15:34; Stop 10/07/19 at 15:34; Status DC Ceftriaxone Sodium (Rocephin) 1 gm STK-MED ONCE .ROUTE ; Start 10/07/19 at 15:34; Stop 10/07/19 at 15:35; Status DC Ferrous Sulfate (Feosol) 325 mg DAILY PO ; Start 10/08/19 at 09:00 Levothyroxine Sodium (Synthroid) 50 mcg DAILY06 PO Last administered on 10/08/19at 05:16; Start 10/08/19 at 06:00 Multivitamins/ Calcium (Thera-M Plus) 1 tab DAILY PO ; Start 10/08/19 at 09:00 Influenza Virus Vaccine Quadrival (Afluria Quad 2019-20 (3yr Up) Syringe) 0.5 ml ONCE ONCE VAX IM ; Start 10/08/19 at 09:00; Stop 10/08/19 at 09:01 Ceftriaxone Sodium 1 gm/ Sodium Chloride 50 ml @ 100 mls/hr Q24H IV ; Start 10/08/19 at 14:00 Azithromycin (Zithromax) 250 mg DAILY PO ; Start 10/08/19 at 14:00 Ketorolac Tromethamine (Toradol 30mg Vial) 30 mg 1X ONCE IVP Last administered on 10/07/19at 21:42; Start 10/07/19 at 21:15; Stop 10/07/19 at 21:21; Status DC Ketorolac Tromethamine (Toradol 15mg Vial) 15 mg PRN Q6HRS PRN IVP PAIN; Start 10/07/19 at 21:15; Stop 10/12/19 at 21:14 Active Scripts Active Reported Multi Vitamin Daily (Multivitamin) 1 Each Tablet 1 Tab PO DAILY 30 Days Iron (Ferrous Sulfate) 325 Mg Tablet 1 Tab PO DAILY 30 Days Synthroid (Levothyroxine Sodium) 50 Mcg Tablet 1 Tab PO DAILY ALLERGIES Allergies: Coded Allergies: No Known Drug Allergies (Unverified , 08/17/17) ROS Review of Systems 14 point ROS conducted with pertinent positives noted above in HPI. PHYSICAL EXAM General: Alert, Oriented X3, Cooperative, No acute distress HEENT: Atraumatic, Mucous membr. moist/pink Lungs: Other (faint rhonchi ) Heart: Other (SR/ST, rate near 105, 3/6 systolic murmur) Abdomen: Soft, No tenderness Extremities: No edema, Normal pulses Skin: No breakdown Neuro: Normal speech, Sensation intact Psych/Mental Status: Mental status NL, Mood NL MUSCULOSKELETAL: Osteoarthritic changes both hands VITALS Vital Signs Vital Signs Date Time Temp Pulse Resp B/P (MAP) Pulse Ox O2 Delivery O2 Flow Rate FiO2 10/08/19 05:21 99.3 109 20 124/77 (93) 100 Nasal Cannula 2.0 LABS LABS Laboratory Tests Test 10/07/19 12:49 10/07/19 13:00 10/07/19 15:28 10/07/19 16:48 White Blood Count 19.1 x10^3/uL (4.0-11.0) Red Blood Count 5.02 x10^6/uL (4.30-5.70) Hemoglobin 16.7 g/dL (13.0-17.5) Hematocrit 49.3 % (39.0-53.0) Mean Corpuscular Volume 98 fL (79-100) Mean Corpuscular Hemoglobin 33 pg (25-35) Mean Corpuscular Hemoglobin Concent 34 g/dL (31-37) Red Cell Distribution Width 13.9 % (11.5-14.5) Platelet Count 283 x10^3/uL (140-400) Neutrophils (%) (Auto) 91 % (31-73) Lymphocytes (%) (Auto) 1 % (24-48) Monocytes (%) (Auto) 8 % (0-9) Eosinophils (%) (Auto) 0 % (0-3) Basophils (%) (Auto) 0 % (0-3) Neutrophils # (Auto) 17.3 x10^3uL (1.8-7.7) Lymphocytes # (Auto) 0.2 x10^3/uL (1.0-4.8) Monocytes # (Auto) 1.6 x10^3/uL (0.0-1.1) Eosinophils # (Auto) 0.0 x10^3/uL (0.0-0.7) Basophils # (Auto) 0.0 x10^3/uL (0.0-0.2) Segmented Neutrophils % 75 % (35-66) Band Neutrophils % 15 % (0-9) Lymphocytes % 2 % (24-48) Monocytes % 8 % (0-10) Eosinophils % 0 % (0-5) Basophils % 0 % (0-3) Platelet Estimate Adequate (ADEQUATE) D-Dimer (Kelin) 1.23 mg/L (0.00-0.50) Sodium Level 125 mmol/L (136-145) Potassium Level 3.9 mmol/L (3.5-5.1) Chloride Level 86 mmol/L (98-107) Carbon Dioxide Level 30 mmol/L (21-32) Anion Gap 9 (6-14) Blood Urea Nitrogen 8 mg/dL (8-26) Creatinine 0.8 mg/dL (0.7-1.3) Estimated GFR (Cockcroft-Gault) 98.9 BUN/Creatinine Ratio 10 (6-20) Glucose Level 123 mg/dL (70-99) Lactic Acid Level 2.2 mmol/L (0.4-2.0) 1.3 mmol/L (0.4-2.0) Calcium Level 9.8 mg/dL (8.5-10.1) Total Bilirubin 1.5 mg/dL (0.2-1.0) Aspartate Amino Transf (AST/SGOT) 12 U/L (15-37) Alanine Aminotransferase (ALT/SGPT) 13 U/L (16-63) Alkaline Phosphatase 144 U/L (46-116) Troponin I Quantitative < 0.017 ng/mL (0-0.055) SQ-Xrx-S-Type Natriuretic Peptide 1435 pg/mL (0-124) Total Protein 8.6 g/dL (6.4-8.2) Albumin 3.4 g/dL (3.4-5.0) Albumin/Globulin Ratio 0.7 (1.0-1.7) Influenza Type A (Rapid) Negative (NEGATIVE) Influenza Type B (Rapid) Negative (NEGATIVE) Urine Collection Type Unknown Urine Color Yellow Urine Clarity Clear Urine pH 7.0 Urine Specific [place] <=1.005 Urine Protein Neg (NEG-TRACE) Urine Glucose (UA) Neg mg/dL (NEG) Urine Ketones (Stick) Neg mg/dL (NEG) Urine Blood Small (NEG) Urine Nitrite Neg (NEG) Urine Bilirubin Neg (NEG) Urine Urobilinogen Dipstick 1 mg/dL (0.2 mg/dL) Urine Leukocyte Esterase Neg (NEG) Urine RBC 1-2 /HPF (0-2) Urine WBC Occ /HPF (0-4) Urine Squamous Epithelial Cells None /LPF Urine Bacteria 0 /HPF (0-FEW) Test 10/07/19 19:25 10/08/19 01:13 10/08/19 05:40 Troponin I Quantitative < 0.017 ng/mL (0-0.055) < 0.017 ng/mL (0-0.055) White Blood Count 14.3 x10^3/uL (4.0-11.0) Red Blood Count 4.24 x10^6/uL (4.30-5.70) Hemoglobin 14.2 g/dL (13.0-17.5) Hematocrit 42.1 % (39.0-53.0) Mean Corpuscular Volume 99 fL (79-100) Mean Corpuscular Hemoglobin 33 pg (25-35) Mean Corpuscular Hemoglobin Concent 34 g/dL (31-37) Red Cell Distribution Width 14.2 % (11.5-14.5) Platelet Count 244 x10^3/uL (140-400) Neutrophils (%) (Auto) 85 % (31-73) Lymphocytes (%) (Auto) 3 % (24-48) Monocytes (%) (Auto) 12 % (0-9) Eosinophils (%) (Auto) 0 % (0-3) Basophils (%) (Auto) 0 % (0-3) Neutrophils # (Auto) 12.1 x10^3uL (1.8-7.7) Lymphocytes # (Auto) 0.4 x10^3/uL (1.0-4.8) Monocytes # (Auto) 1.8 x10^3/uL (0.0-1.1) Eosinophils # (Auto) 0.0 x10^3/uL (0.0-0.7) Basophils # (Auto) 0.0 x10^3/uL (0.0-0.2) Sodium Level 126 mmol/L (136-145) Potassium Level 3.5 mmol/L (3.5-5.1) Chloride Level 89 mmol/L (98-107) Carbon Dioxide Level 26 mmol/L (21-32) Anion Gap 11 (6-14) Blood Urea Nitrogen 7 mg/dL (8-26) Creatinine 0.7 mg/dL (0.7-1.3) Estimated GFR (Cockcroft-Gault) 115.4 BUN/Creatinine Ratio 10 (6-20) Glucose Level 116 mg/dL (70-99) Calcium Level 8.6 mg/dL (8.5-10.1) Total Bilirubin 1.2 mg/dL (0.2-1.0) Aspartate Amino Transf (AST/SGOT) 12 U/L (15-37) Alanine Aminotransferase (ALT/SGPT) 11 U/L (16-63) Alkaline Phosphatase 122 U/L (46-116) Total Protein 6.8 g/dL (6.4-8.2) Albumin 2.5 g/dL (3.4-5.0) Albumin/Globulin Ratio 0.6 (1.0-1.7) ASSESSMENT/PLAN Assessment/Plan 1. Productive cough, fevers. 2. Leukocytosis, lactic acidosis 3. Probable PNA 4. Sinus tachycardia, reactive to above. 5. Abnormal EKG; diffuse, non-specific ST elevation noted. Troponin series normal. ? pericarditis 6. Chest pain, noncardiac. Secondary to persistent cough 7. COPD 8. Lung CA; currently on chemotherapy 9. S/p right upper lobectomy Recommendations Echocardiogram IVFs Ongoing antibiotic therapy Follow cultures Supportive care SINDY ADAMS RESIDENT INTERN Oct 08, 2019 07:54
[2019-10-08] MEDS: MULTIVITAMIN with MINERAL TABLET. PO SCH (07:55)
[2019-10-08] MEDS: FERROUS SULFATE 325 MG TABLET. PO SCH (07:58)
[2019-10-08] MEDS ORDERED: FLU VAX QS 2019-20 (36MOS+)/PF 0.5 ML SYRINGE. VAX IM ONE (09:00)
[2019-10-08 10:45] VITALS: BP 106/65
[2019-10-08] MEDS: ACETAMINOPHEN 325 MG TABLET PO PRN ×2 (11:28→16:17)
--- NOTE | 2019-10-08 12:15 | NUR ---
NURSING NOTE FLU SHOT PT STATES HIS BELIEVES HIS DR WANTED HIM TO GET THE FLU SHOT. THIS NURSE ATTEMPT TO CONTACT DR KATIE ZURITA AT THE [facility] OFF OF [address]. MESSAGE LEFT FOR RETURN CALL. FLU SHOT PENDING UNTIL CLARIFICATION IF PT CAN RECEIVE FLU VACCINE. DARLINE JACOB.
[2019-10-08] MEDS: AZITHROMYCIN 250 MG TABLET. PO SCH (14:31)
[2019-10-08 14:57] VITALS: BP 133/83
--- NOTE | 2019-10-08 15:41 | NUR ---
NURSING NOTE PT SEEN CARDIOLOGY THIS AM, ECHO ORDERED. PT IS TO BE NPO AFTER MIDNIGHT FOR ABD ULTRASOUND FOR ELEVATED LIVER ENZYMES. LABS ORDERED IN THE AM. STILL WAITING FOR CALL BACK IN REGARD TO FLU SHOT. WILL CONTINUE TO MONITOR. DARLINE JACOB.
[2019-10-08] MEDS ORDERED: ACETAMINOPHEN 325 MG TABLET PO ONE (16:07)
--- NOTE | 2019-10-08 16:30 | HP ---
ADMIT DATE: 10/07/2019 HISTORY: The patient is a 59-year-old male patient who presented to the Emergency Room with a complaint of right upper chest discomfort as well as cough with greenish sputum. He stated that he started having fever, chest pain, cough with greenish sputum. His temperature went up to 103 Fahrenheit, started last Sunday and continued on and off until Sunday. On the day of admission, he stated that his pain has worsened with coughing and deep breathing. He apparently has had a left parotid gland for which he underwent parotidectomy and apparently while followed for that, he has incidental finding with the right upper lobe tumor. For which he underwent right upper lobectomy in 2017, after which he was started with chemotherapy and radiation treatment, has been receiving chemotherapy every 2 weeks since last January. He does have a PET scan alternating with CT scan according to him. The patient also stated he had some shortness of breath, is worsened with exertion and he was extensively investigated in the Emergency Room. His white cell count was high at 19,100. He was also found to have marked hyponatremia, serum sodium 125. He has also slightly elevated bilirubin and alkaline phosphatase; although, AST, ALT and total bilirubin are normal. His D-dimer was elevated at 1.23. Urinalysis was essentially unremarkable. His influenza A and B were negative. His chest x-ray showed that the patient has bilateral pleural effusion with loculated apical component, right greater than left. He has also patchy left basilar opacity, may represent atelectasis or consolidation. Bilateral upper lung reticular patchy opacities similar compared to prior. Given his elevated D-dimer, he had CT angio of the chest, which showed no pulmonary embolism. He has a small right basilar pleural effusion with ____ and thickened pleura, may relate to recent thoracentesis, although recommended ____ for empyema. Loculated right apical fluid with pleural thickening. Left lower lobe ground glass opacity may represent infectious inflammatory process. Right upper lung irregular nodular opacity related to sequelae of prior treatment and has postoperative changes, right upper lobectomy in the right anterior upper lung fibrotic changes and atelectasis. The patient was admitted with community-acquired pneumonia as well as hyponatremia. He was started on IV Zithromax and ceftriaxone as well as started also on IV fluid from normal saline to see whether hyponatremic be improved. I will continue all his other medications including bronchodilators. We will follow his labs on a daily basis. We will obviously check blood and urine for culture and sensitivity. PAST MEDICAL HISTORY: Significant for parotid cancer, chronic obstructive pulmonary disease, right upper lobe bronchogenic cancer. He also has hypothyroidism and benign prostatic hypertrophy. PAST SURGICAL HISTORY: Significant for right upper lobectomy for lung cancer, parotid tumor resection. He has also thoracentesis x 2. He underwent esophagogastroduodenoscopy and colonoscopy. ALLERGIES: He has no known drug allergies. MEDICATIONS: He is currently on following medications: He is on ferrous sulfate 325 mg once a day, levothyroxine sodium 50 mcg once a day, multivitamin 1 tablet once a day. FAMILY HISTORY: He has 2 brothers and 1 sister, younger and apparently healthy. His father at the age of 70 because of myocardial infarction. Mother at the age of 73 because of brain tumor and lung cancer. SOCIAL HISTORY: . He has 4 children from first marriage and 2 children from the second marriage. He quit smoking 7-8 years ago. He drinks 3-4 beers a day. 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 He retired after 17 years in the [employer]. REVIEW OF SYSTEMS: The patient denied any blurring of vision, cataract, glaucoma or macular degeneration. Denied any earache, tinnitus or sensorineural deafness. Denied any nosebleeds, stuffy nose or postnasal drip. Denied any sore throat, sore tongue, toothache, hoarseness of voice or difficulty swallowing. Did complete of the weight loss of about 20 pounds. Denied any nausea, vomiting, diarrhea or constipation. Denied any hematemesis, melena, hematochezia. Denied any dysuria, frequency or hematuria. Did complain of chest pain mostly right sided. Cough with greenish sputum. PHYSICAL EXAMINATION: GENERAL: On arrival to the Emergency Room, he looked somewhat pale, but no jaundice, cyanosis or thyromegaly. No jugular venous distention. No lower limb edema. VITAL SIGNS: His heart rate was 112, blood pressure 142/79, temperature was 97.9, respiratory rate was 20, and oxygen saturation was 91%. HEAD, EYES, EARS, NOSE AND THROAT: Showed normocephalic, atraumatic. NECK: Supple. HEART: Showed normal first and second heart sounds. No gallop or murmur. CHEST: Clear to auscultation. No crepitation or rhonchi. ABDOMEN: Distended, soft, nontender. No guarding or rigidity. No organomegaly. NEUROLOGIC: He was awake, alert, responding appropriately. All cranial nerves intact. EXTREMITIES: He moves extremities without difficulty, ambulates without assistance or assistive devices. LABORATORY DATA: On admission showed a white cell count of 19,100, hemoglobin 16.7, hematocrit was 49, MCV 98 and platelet count of 283,000 with normal manual differential. His chemistry showed a serum sodium of 125, potassium 3.9, chloride 86, bicarbonate 30, anion gap of 9, BUN 8, creatinine 0.8, estimated GFR was 98 mL per minute, his glucose 123, calcium was 9.8. Total bilirubin is 1.5. AST and ALT were normal. Alkaline phosphatase slightly elevated. His beta natriuretic peptide was 1400. Total protein was 8.6, albumin was 3.4. D-dimer was high at 1.23. Urinalysis essentially unremarkable. His influenza A and B were negative. His chest x-ray showed that he has bilateral pleural effusion with loculated apical component, right greater than left, patchy left basilar opacity may represent atelectasis or consolidation, bilateral upper lobe reticular patchy opacities similar compared to previous. CT scan showed no pulmonary embolism and small right basilar pleural effusion, foci of gas and thickened pleura relate to recent thoracentesis, although recommended correlation for empyema, loculated right apical fluid with pleural thickening, left lower lobe ground glass opacities may represent infectious inflammatory process, right upper lung irregular nodular opacity may relate to sequela of prior treatment. Recommend correlation with recent prior exam to evaluate stability. He has also postoperative changes, right upper lobectomy, right anterior upper lung fibrotic changes with atelectasis. PLAN: To continue with IV antibiotic. Continue with pain management. Continue with Synthroid. Continue with IV fluid in the form of normal saline to hopefully improve his sodium. GIL KELLY MD DR: NED/janet JOB#: [id number] / [id number]
--- NOTE | 2019-10-08 17:04 | RAD ---
CT HEAD WO CONTRAST Clinical indications: Constant headache. Comparison: January 19, 2011. Technique: Noncontrast axial cross sectional scanning of the head was performed. PQRS compliance Statement One or more of the following individualized dose reduction techniques were utilized for this study: 1. Automated exposure control 2. Adjustment of the mA and/or kV according to patient size 3. Use of iterative reconstruction technique Findings: No acute intracranial hemorrhage or midline shift or mass-effect or hydrocephalus or extra-axial fluid collection is seen. No focal hypodense area or sulci effacement is seen to indicate an acute infarct or edema radiographically. No skull fracture or pneumocephalus is seen. No opacification of the mastoid sinuses or the middle ear cavities or the paranasal sinuses is seen. The maxillary sinuses are not completely seen in this study. Impression: No acute intracranial abnormality is seen. The previously seen left maxillary sinus opacification has resolved. Electronically signed by: Afshin Mancini MD (10/08/2019 5:00 PM) [facility]
[2019-10-08 18:57] VITALS: BP 131/78
--- NOTE | 2019-10-08 19:12 | CARD ---
MR#: [id number] Date of Study: 10/08/2019 Ordering Physician: SINDY ADAMS, Referring Physician: SINDY ADAMS, Tech: Astrid Ross JULIA APPROVED REPORT EXAM: Two-dimensional and M-mode echocardiogram with Doppler and color Doppler. Other Information Quality : FairHR: 126bpm INDICATION Abnormal ECG 2D DIMENSIONS Left Atrium(2D)3.0 (1.6-4.0cm)IVSd0.7 (0.7-1.1cm) Aortic Root(2D)3.7 (2.0-3.7cm)LVDd4.0 (3.9-5.9cm) LVOT Diameter1.8 (1.8-2.4cm)PWd0.7 (0.7-1.1cm) LVDs2.5 (2.5-4.0cm)LVEF(%)67.0 (>50%) Aortic Valve AoV Peak Burton.270.0cm/sAoV VTI41.0cm AO Peak GR.29.0mmHgLVOT Peak Burton.1.2cm/s LVOT VTI 19.60cmAO Mean GR.18mmHg PETTY (VTI)1.53cr8IR P 1/2 [id number] Mitral Valve MV E Gtiycgzh90.0cm/sMV E Peak Gr.3mmHg MV DECEL [id number] TDI Lateral E' P. V17.52cm/sMedial E' P. V16.07cm/s E/Lateral E'4.4E/Medial E'4.8 LEFT VENTRICLE The left ventricle is normal size. There is normal left ventricular wall thickness. The left ventricu lar systolic function is normal and the ejection fraction is within normal range. EF 55% There is nor mal LV segmental wall motion. Tissue Doppler imaging reveals moderate left ventricular diastolic dysf unction. RIGHT VENTRICLE The right ventricle is normal size. There is normal right ventricular wall thickness. The right ventr icular systolic function is normal. ATRIA The left atrium size is normal. The right atrium size is normal. The interatrial septum is intact wit h no evidence for an atrial septal defect or patent foramen ovale as noted on 2-D or Doppler imaging. AORTIC VALVE The aortic valve is heavily calcified. Doppler and Color Flow revealed no significant aortic regurgit ation. Visually there is severe aortic valve stenosis. Moderate by doppler criteria. MG 20 mm Hg. DI: 0.43 There is no aortic valvular vegetation. MITRAL VALVE The mitral valve is normal in structure and function. There is no evidence of mitral valve prolapse. There is no mitral valve stenosis. Doppler and Color Flow revealed no mitral valve regurgitation note d. TRICUSPID VALVE The tricuspid valve is normal in structure and function. Doppler and Color Flow revealed no tricuspid valve regurgitation noted. There is no tricuspid valve prolapse or vegetation. There is no tricuspid valve stenosis. PULMONIC VALVE Doppler and Color Flow revealed trace pulmonic valvular regurgitation. There is no pulmonic valvular stenosis. GREAT VESSELS The aortic root is normal in size. The ascending aorta is normal in size. The IVC is normal in size a nd collapses >50% with inspiration. PERICARDIAL EFFUSION There is no evidence of significant pericardial effusion. Critical Notification Critical Value: No <Conclusion> The left ventricular systolic function is normal and the ejection fraction is within normal range. EF 55% There is normal LV segmental wall motion. Visually there is severe aortic valve stenosis. Moderate by doppler criteria. MG 20 mm Hg. DI: 0.4 3 Signed by : Ildefonso Plunkett, Electronically Approved : 10/08/2019 19:12:35
[2019-10-08 20:15] LABS: THYROID STIM HORMONE (TSH) 4.755 uIU/mL (0.358-3.740)
--- NOTE | 2019-10-09 01:30 | PN ---
DATE: 10/08/2019 SUBJECTIVE: The patient is resting, slightly propped up in bed, in no apparent distress. He stated that his right side chest pain is much improved now. He does not have any pain when he is at rest. The pain continued to get worse if he coughs or moves. Has had no fever and the cough is continuing to have some scanty white greenish sputum. PHYSICAL EXAMINATION: GENERAL: When I examined him, he looked pale, but no jaundice, cyanosis or thyromegaly. No jugular venous distention. No limb edema. VITAL SIGNS: Her heart rate was 83, blood pressure 106/65, temperature was 97.9, respiratory rate 20, and oxygen saturation was 95% on room air. HEAD, EYES, EARS, NOSE AND THROAT: Showed normocephalic, atraumatic. NECK: Supple. HEART: Showed normal first and second heart sounds. No gallop or murmur. CHEST: Shows central trachea. Good chest expansion, air entry on the left side. Dull percussion noted and absent breath sounds on the right side posteriorly. I could not appreciate any crepitation or rhonchi. ABDOMEN: Scaphoid, soft, nontender. NEUROLOGIC: He is awake, alert, responding appropriately. All cranial nerves are intact. He moves extremities without difficulty. LABORATORY DATA: Her lab work this morning showed a white cell count of 14,300, hemoglobin 14, hematocrit 42, MCV 99 and platelet count 244,000 with normal manual differential. His chemistry showed serum sodium of 126, potassium 3.5, chloride 89, bicarbonate 26, anion gap of 11, BUN 7, creatinine 0.7, estimated GFR was 115 mL per minute. His calcium was 8.6. Total bilirubin and alkaline phosphatase slightly elevated. AST and ALT were normal. He has 3 sets of cardiac enzymes that are negative. Total protein was 6.8, albumin 2.5. ASSESSMENT AND PLAN: This is a 59-year-old male patient, who was admitted with community-acquired pneumonia, has also marked hyponatremia, has lung cancer, status post right upper lobectomy; parotid cancer, status post left parotid resection. He is on chemotherapy every 2 weeks since November of this year for his lung cancer. We will continue with IV fluid, given deranged liver enzyme, we will arrange for him to have abdominal ultrasound. I will check also his morning cortisol given his persistent hyponatremia. Meanwhile, we will continue with IV antibiotic and normal saline. GIL KELLY MD DR: NED/janet JOB#: [id number] / [id number]
--- NOTE | 2019-10-09 01:44 | EKG ---
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
--- NOTE | 2019-10-09 01:56 | EKG ---
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
[2019-10-09] MEDS: LEVOTHYROXINE 50 MCG TABLET PO SCH (05:41)
[2019-10-09 05:45] VITALS: BP 111/74
[2019-10-09 07:55] LABS: HEMATOCRIT 43.6 % (39.0-53.0); HEMOGLOBIN 14.6 g/dL (13.0-17.5); RED BLOOD COUNT 4.44 x10^6/uL (4.30-5.70); WHITE BLOOD COUNT 12.4 x10^3/uL (4.0-11.0)
[2019-10-09 08:22] LABS: ALBUMIN 2.5 g/dL (3.4-5.0); ALBUMIN/GLOBULIN RATIO 0.6 (1.0-1.7); CALCIUM 8.8 mg/dL (8.5-10.1); CREATININE 0.6 mg/dL (0.7-1.3); GFR 137.9; POTASSIUM 3.4 mmol/L (3.5-5.1); TOTAL PROTEIN 6.6 g/dL (6.4-8.2)
--- NOTE | 2019-10-09 09:35 | PDOC ---
CARDIO Progress Notes Date & Time Date of Service DATE: 10/09/19 TIME: 09:34 Time of Evaluation 09:34 Subjective Notes Feels slightly better. Continues with cough with green sputum. Vitals Vitals Vital Signs Date Time Temp Pulse Resp B/P (MAP) Pulse Ox O2 Delivery O2 Flow Rate FiO2 10/09/19 08:00 Room Air 10/09/19 05:45 98.0 102 18 111/74 (86) 94 10/08/19 05:21 2.0 Weight Weight [ ] Input and Output I.O. Intake and Output 10/09/19 06:59 Intake Total 2865 ml Output Total 2500 ml Balance 365 ml Intake Oral 1085 ml IV Total 1780 ml Output Urine Total 2500 ml Laboratory Labs Laboratory Tests Test 10/07/19 12:49 10/07/19 13:00 10/07/19 15:28 10/07/19 16:48 White Blood Count 19.1 x10^3/uL (4.0-11.0) Red Blood Count 5.02 x10^6/uL (4.30-5.70) Hemoglobin 16.7 g/dL (13.0-17.5) Hematocrit 49.3 % (39.0-53.0) Mean Corpuscular Volume 98 fL (79-100) Mean Corpuscular Hemoglobin 33 pg (25-35) Mean Corpuscular Hemoglobin Concent 34 g/dL (31-37) Red Cell Distribution Width 13.9 % (11.5-14.5) Platelet Count 283 x10^3/uL (140-400) Neutrophils (%) (Auto) 91 % (31-73) Lymphocytes (%) (Auto) 1 % (24-48) Monocytes (%) (Auto) 8 % (0-9) Eosinophils (%) (Auto) 0 % (0-3) Basophils (%) (Auto) 0 % (0-3) Neutrophils # (Auto) 17.3 x10^3uL (1.8-7.7) Lymphocytes # (Auto) 0.2 x10^3/uL (1.0-4.8) Monocytes # (Auto) 1.6 x10^3/uL (0.0-1.1) Eosinophils # (Auto) 0.0 x10^3/uL (0.0-0.7) Basophils # (Auto) 0.0 x10^3/uL (0.0-0.2) Segmented Neutrophils % 75 % (35-66) Band Neutrophils % 15 % (0-9) Lymphocytes % 2 % (24-48) Monocytes % 8 % (0-10) Eosinophils % 0 % (0-5) Basophils % 0 % (0-3) Platelet Estimate Adequate (ADEQUATE) D-Dimer (Kelin) 1.23 mg/L (0.00-0.50) Sodium Level 125 mmol/L (136-145) Potassium Level 3.9 mmol/L (3.5-5.1) Chloride Level 86 mmol/L (98-107) Carbon Dioxide Level 30 mmol/L (21-32) Anion Gap 9 (6-14) Blood Urea Nitrogen 8 mg/dL (8-26) Creatinine 0.8 mg/dL (0.7-1.3) Estimated GFR (Cockcroft-Gault) 98.9 BUN/Creatinine Ratio 10 (6-20) Glucose Level 123 mg/dL (70-99) Lactic Acid Level 2.2 mmol/L (0.4-2.0) 1.3 mmol/L (0.4-2.0) Calcium Level 9.8 mg/dL (8.5-10.1) Total Bilirubin 1.5 mg/dL (0.2-1.0) Aspartate Amino Transf (AST/SGOT) 12 U/L (15-37) Alanine Aminotransferase (ALT/SGPT) 13 U/L (16-63) Alkaline Phosphatase 144 U/L (46-116) Troponin I Quantitative < 0.017 ng/mL (0-0.055) VI-Doa-K-Type Natriuretic Peptide 1435 pg/mL (0-124) Total Protein 8.6 g/dL (6.4-8.2) Albumin 3.4 g/dL (3.4-5.0) Albumin/Globulin Ratio 0.7 (1.0-1.7) Influenza Type A (Rapid) Negative (NEGATIVE) Influenza Type B (Rapid) Negative (NEGATIVE) Urine Collection Type Unknown Urine Color Yellow Urine Clarity Clear Urine pH 7.0 Urine Specific Ringle <=1.005 Urine Protein Neg (NEG-TRACE) Urine Glucose (UA) Neg mg/dL (NEG) Urine Ketones (Stick) Neg mg/dL (NEG) Urine Blood Small (NEG) Urine Nitrite Neg (NEG) Urine Bilirubin Neg (NEG) Urine Urobilinogen Dipstick 1 mg/dL (0.2 mg/dL) Urine Leukocyte Esterase Neg (NEG) Urine RBC 1-2 /HPF (0-2) Urine WBC Occ /HPF (0-4) Urine Squamous Epithelial Cells None /LPF Urine Bacteria 0 /HPF (0-FEW) Test 10/07/19 19:25 10/08/19 01:13 10/08/19 05:40 10/09/19 07:49 Troponin I Quantitative < 0.017 ng/mL (0-0.055) < 0.017 ng/mL (0-0.055) Triglycerides Level 46 mg/dL (0-150) Cholesterol Level 113 mg/dL (0-200) LDL Cholesterol, Calculated 57 mg/dL (0-100) VLDL Cholesterol, Calculated 9 mg/dL (0-40) Non-HDL Cholesterol Calculated 66 mg/dL (0-129) HDL Cholesterol 47 mg/dL (40-60) Cholesterol/HDL Ratio 2.0 Thyroid Stimulating Hormone (TSH) 4.755 uIU/mL (0.358-3.740) White Blood Count 14.3 x10^3/uL (4.0-11.0) 12.4 x10^3/uL (4.0-11.0) Red Blood Count 4.24 x10^6/uL (4.30-5.70) 4.44 x10^6/uL (4.30-5.70) Hemoglobin 14.2 g/dL (13.0-17.5) 14.6 g/dL (13.0-17.5) Hematocrit 42.1 % (39.0-53.0) 43.6 % (39.0-53.0) Mean Corpuscular Volume 99 fL (79-100) 98 fL (79-100) Mean Corpuscular Hemoglobin 33 pg (25-35) 33 pg (25-35) Mean Corpuscular Hemoglobin Concent 34 g/dL (31-37) 33 g/dL (31-37) Red Cell Distribution Width 14.2 % (11.5-14.5) 14.0 % (11.5-14.5) Platelet Count 244 x10^3/uL (140-400) 264 x10^3/uL (140-400) Neutrophils (%) (Auto) 85 % (31-73) Lymphocytes (%) (Auto) 3 % (24-48) Monocytes (%) (Auto) 12 % (0-9) Eosinophils (%) (Auto) 0 % (0-3) Basophils (%) (Auto) 0 % (0-3) Neutrophils # (Auto) 12.1 x10^3uL (1.8-7.7) Lymphocytes # (Auto) 0.4 x10^3/uL (1.0-4.8) Monocytes # (Auto) 1.8 x10^3/uL (0.0-1.1) Eosinophils # (Auto) 0.0 x10^3/uL (0.0-0.7) Basophils # (Auto) 0.0 x10^3/uL (0.0-0.2) Sodium Level 126 mmol/L (136-145) 129 mmol/L (136-145) Potassium Level 3.5 mmol/L (3.5-5.1) 3.4 mmol/L (3.5-5.1) Chloride Level 89 mmol/L (98-107) 92 mmol/L (98-107) Carbon Dioxide Level 26 mmol/L (21-32) 29 mmol/L (21-32) Anion Gap 11 (6-14) 8 (6-14) Blood Urea Nitrogen 7 mg/dL (8-26) 5 mg/dL (8-26) Creatinine 0.7 mg/dL (0.7-1.3) 0.6 mg/dL (0.7-1.3) Estimated GFR (Cockcroft-Gault) 115.4 137.9 BUN/Creatinine Ratio 10 (6-20) 8 (6-20) Glucose Level 116 mg/dL (70-99) 101 mg/dL (70-99) Calcium Level 8.6 mg/dL (8.5-10.1) 8.8 mg/dL (8.5-10.1) Total Bilirubin 1.2 mg/dL (0.2-1.0) 1.0 mg/dL (0.2-1.0) Aspartate Amino Transf (AST/SGOT) 12 U/L (15-37) 20 U/L (15-37) Alanine Aminotransferase (ALT/SGPT) 11 U/L (16-63) 15 U/L (16-63) Alkaline Phosphatase 122 U/L (46-116) 128 U/L (46-116) Total Protein 6.8 g/dL (6.4-8.2) 6.6 g/dL (6.4-8.2) Albumin 2.5 g/dL (3.4-5.0) 2.5 g/dL (3.4-5.0) Albumin/Globulin Ratio 0.6 (1.0-1.7) 0.6 (1.0-1.7) Microbiology Micro Microbiology 10/07/19 Blood Culture - Preliminary, Resulted NO GROWTH AFTER 1 DAY... Physical Exams HEENT: Neck Supple W Full Motion Chest: Symmetric Lungs: Other (diminished ) Heart: S1S2, RRR (SR/ST), murmurs (3/6 systolic murmur ) Abdomen: Soft N/T Extremities: No Edema Neurology: alert, oriented, follow commands Assessment Assessment 1. Productive cough, fevers. 2. Leukocytosis, lactic acidosis. BC no growth so far 3. Probable PNA 4. Sinus tachycardia, reactive to above. improved. Echo with preserved LV systolic function. 5. Abnormal EKG; diffuse, non-specific ST elevation noted. Troponin series nor mal. ? pericarditis 6. Moderate to severe 7. Right-sided chest pain, noncardiac. Secondary to persistent cough 8. COPD; ex-smoker 9. Lung CA; s/p right upper lobectomy. Most recently, has been receiving chemotherapy q 2 weeks since January. 10. Hyponatremia; improving Recommendations Ongoing antibiotic therapy NSAIDS PRN for pain Supportive care Outpatient f/u, workup SINDY ADAMS APRN Oct 09, 2019 09:35
[2019-10-09] MEDS: AZITHROMYCIN 250 MG TABLET. PO SCH (10:04)
[2019-10-09] MEDS: MULTIVITAMIN with MINERAL TABLET. PO SCH (10:04)
--- NOTE | 2019-10-09 10:49 | RAD ---
Examination: ABDOMEN LTD History: Abnormal liver function enzymes Comparison/Correlation: None Findings: Right upper quadrant ultrasound exams were performed. Mild fatty infiltration of the liver is present. Gallbladder is unremarkable. Echogenic structure in the fundus which is not mobile and is present measuring up to 1.1 cm x 1 cm. No flow evident within it. No shadowing evident. No calculi identified. No pericholecystic fluid or biliary dilatation. Inferior vena cava is unremarkable. Pancreas is obscured by bowel gas. No right upper quadrant ascites. Impression: Intermediate echogenicity nonmobile structure within the fundus of the gallbladder. This may represent a polyp or other mass. There is no shadowing as would be typically expected of a calculus. Interval follow-up pelvic ultrasound 6 months to assess stability is recommended. Electronically signed by: Wilson Lala MD (10/09/2019 10:46 AM) [facility]
[2019-10-09 11:02] VITALS: BP 128/74
[2019-10-09] MEDS: FERROUS SULFATE 325 MG TABLET. PO SCH (12:09)
[2019-10-09 13:38] VITALS: BP 142/82
[2019-10-09] MEDS ORDERED: ONDANSETRON PF 4 MG/2 ML VIAL. IVP PRN (13:45)
[2019-10-09] MEDS: ACETAMINOPHEN 325 MG TABLET PO PRN ×2 (13:46→18:17)
[2019-10-09 17:54] VITALS: BP 122/79
--- NOTE | 2019-10-09 21:47 | PN ---
DATE: 10/09/2019 SUBJECTIVE: The patient is resting, slightly propped up in bed, continues to complain of shortness of breath, cough with productive sputum. His chest pain is slightly better now. He has had an echocardiogram, which showed that his left ventricular systolic function is normal, the ejection fraction is within normal range at 55%. He has normal left ventricular segmental wall motion. There is severe aortic valve stenosis and moderate aortic stenosis by Doppler criteria and mean gradient was 20 mmHg and a diameter of 0.3 square centimeter. Given his elevated alkaline phosphatase and bilirubin, we did the right upper quadrant ultrasound showed mild fatty infiltration of the liver, the gallbladder is unremarkable. Echogenic structure in the fundus, which is not mobile and is present measuring up to 1.1 cm x 1 cm. No flow evident within it. No shadowing evident. No calculi identified. No pericholecystic fluid or biliary dilatation. Inferior vena cava is unremarkable. Pancreas obscured by bowel gas. No right upper quadrant ascites. PHYSICAL EXAMINATION: GENERAL: When I examined him this morning, he was resting, slightly propped up in bed, in no apparent distress. There is no pallor, jaundice, cyanosis. No lymphadenopathy or thyromegaly. No jugular venous distention. No lower limb edema. VITAL SIGNS: His heart rate was 119, blood pressure was 128/74, temperature was 98.1, respiratory rate 20, and oxygen saturation was 96% on room air. HEAD, EYES, EARS, NOSE AND THROAT: Normocephalic, atraumatic. NECK: Supple. HEART: Normal first and second heart sounds. No gallop or murmur. CHEST: Clear to auscultation. No crepitation or rhonchi. ABDOMEN: Distended, soft, nontender. NEUROLOGIC: He was awake, alert, responding appropriately. All cranial nerves are intact. He moves extremities without difficulty. His intake was 2865, output was 2500. LABORATORY DATA: His lab work this morning showed the white cell count is down to 12,400, hemoglobin 14.6, hematocrit 44, MCV 98 and platelet count 264,000. Serum sodium is up to 129, potassium 3.4, chloride 92, bicarbonate 29, anion gap of 8, BUN 5, creatinine 0.6, estimated GFR was 137 mL per minute. He had a glucose 101, calcium was 8.8. Total bilirubin, AST, ALT were normal. Alkaline phosphatase slightly elevated. Total protein was 6.5, albumin was 2.5. TSH slightly elevated at 4.755. ASSESSMENT: 1. Community-acquired pneumonia, for which he is on IV Zithromax and ceftriaxone. 2. Hyponatremia, improving gradually. His serum sodium is up to 129. 3. Right upper lobe bronchogenic carcinoma, status post upper lobectomy. 4. Left parotid gland carcinoma, status post left parotid resection. He apparently is on chemotherapy every 2 weeks since November of this year. He has had an echocardiogram, which showed that he has moderate aortic stenosis with mean gradient of 20 mmHg and aortic valve surface area of 0.3 square centimeter. COPD, his CT scan of the chest showed that he has a small right basilar pleural effusion with foci of gas and thickened pleura, may relate to the recent thoracentesis, although recommend correlation with empyema, has also loculated right apical fluid with pleural thickening. PLAN: My plan is to continue with IV antibiotic for now, probably needs to be seen by his oncologist sooner than scheduled. GIL KELLY MD DR: NED/janet JOB#: [id number] / [id number]
[2019-10-09 23:10] VITALS: BP 111/73
[2019-10-10] VITALS (9 sets, daily range): BP systolic 104–130; BP diastolic 67–86
[2019-10-10] MEDS: LEVOTHYROXINE 50 MCG TABLET PO SCH (05:40)
--- NOTE | 2019-10-10 08:11 | PN ---
DATE: 10/10/2019 PROGRESS NOTE CHIEF COMPLAINT: Cough and shortness of breath. SUBJECTIVE: The patient is feeling better. Cough is less and pleuritic type chest pain has resolved. OBJECTIVE FINDINGS: VITAL SIGNS: Temperature 98.4, blood pressure is 111/73, pulse rate remained slightly elevated at 106 per minute, otherwise regular. HEENT: Head is without trauma. Pupils are reactive. Sclerae nonicteric. Oropharynx clear. NECK: Supple, no bruits. Previous surgery noted on the left cheek. LUNGS: Diminished breath sounds at both bases. No wheezing, minimal rhonchi noted in the upper right lung field. CARDIOVASCULAR: Showed a tachycardic rhythm regular 106 per minute. There is an audible S1. There is a grade 3/6 systolic murmur that is early in systole that ends before the second heart sound. There is no diastolic murmur. The murmur is best heard at the right sternal border by the xiphoid process. Peripheral pulses are palpable and full. ABDOMEN: Soft, scaphoid, nontender, no organomegaly. Bowel sounds are hypoactive. EXTREMITIES: Show no cyanosis, no edema. NEUROLOGIC: Focally intact. Motor and sensation intact. Speech is fluent. PERTINENT LABORATORY STUDIES: The chemistry panel has been ordered and is pending. A followup chest x-ray for today is pending. I have reviewed the chest x-ray from 10/07/2019. ASSESSMENT: 1. A 59-year-old gentleman with community-acquired pneumonia, improving. 2. Pleuritic type chest pain, resolved. 3. Chronic obstructive pulmonary disease. 4. History of bronchogenic carcinoma with previous right upper lobe resection. 5. History of parotid gland malignancy. 6. Chemotherapy since November of this year. 7. Some cachexia. 8. Some hyponatremia, improving with hydration. PLAN: 1. Continue antibiotics as ordered. 2. Follow up chemistry. 3. Follow up chest x-ray. 4. If x-ray and symptoms improve, he can be discharged tomorrow morning with oral antibiotics and follow up as an outpatient. MARTHA EUCEDA MD DR: LEANN/janet JOB#: [id number] / [id number]
[2019-10-10 08:24] LABS: ALBUMIN 2.5 g/dL (3.4-5.0); ALBUMIN/GLOBULIN RATIO 0.6 (1.0-1.7); CALCIUM 8.8 mg/dL (8.5-10.1); CREATININE 0.7 mg/dL (0.7-1.3); GFR 115.4; POTASSIUM 3.2 mmol/L (3.5-5.1); TOTAL BILIRUBIN 0.9 mg/dL (0.2-1.0); TOTAL PROTEIN 6.8 g/dL (6.4-8.2)
[2019-10-10] MEDS: MULTIVITAMIN with MINERAL TABLET. PO SCH (08:41)
[2019-10-10] MEDS: AZITHROMYCIN 250 MG TABLET. PO SCH (08:41)
[2019-10-10] MEDS: FERROUS SULFATE 325 MG TABLET. PO SCH (08:41)
[2019-10-10] MEDS ORDERED: POTASSIUM CHLORIDE 20 MEQ TABLET.ER. PO ONE (09:15)
[2019-10-10] MEDS ORDERED: IV NORMAL SALINE 1,000ML 1,000 ML IV SCH (09:45)
[2019-10-10] MEDS ORDERED: MAGNESIUM SULFATE 1GM 100 ML IV ONE (09:45)
--- NOTE | 2019-10-10 09:49 | NUR ---
Notified Dr. Crow via telephone of patient's lab results. New orders for NS at 100ml/hour, magnesium sulfate 1 gm IV 1x, KDUR 30MEQ PO BID, and urine sodium spot check received from . Patient notified verbally of new orders.
[2019-10-10] MEDS: POTASSIUM CHLORIDE 10 MEQ TABLET.ER. PO SCH ×2 (10:00→20:56)
[2019-10-10] MEDS: ACETAMINOPHEN 325 MG TABLET PO PRN ×3 (10:04→20:56)
--- NOTE | 2019-10-10 13:56 | RAD ---
CHEST PA LATERAL History: Pneumonia Comparison: 10/07/2019 two-view chest x-ray exam. Findings: Frontal and lateral views of the chest were obtained. Right apical opacification loculated effusion seen. Left apical opacification also present to a lesser degree. Scarring involving the suprahilar regions noted. Suture material in the right suprahilar region present. Calcified angle blunting and small effusions at the lung bases noted. Right basilar scarring circulation is noted corresponding with CT scan performed recently. Right basilar loculated collection is present. Pneumothorax not seen on this exam. Small left pleural effusion is present. IMPRESSION: No significant change in pulmonary aeration. Electronically signed by: Wilson Lala MD (10/10/2019 1:53 PM) [facility]
[2019-10-10 16:31] LABS: ALBUMIN 2.5 g/dL (3.4-5.0); ALBUMIN/GLOBULIN RATIO 0.5 (1.0-1.7); CALCIUM 8.7 mg/dL (8.5-10.1); CREATININE 0.7 mg/dL (0.7-1.3); GFR 115.4; POTASSIUM 3.4 mmol/L (3.5-5.1); TOTAL BILIRUBIN 0.6 mg/dL (0.2-1.0); TOTAL PROTEIN 7.1 g/dL (6.4-8.2)
[2019-10-10] MEDS ORDERED: LABETALOL 100 MG/20 ML VIAL. IV PRN (20:30)
[2019-10-10] MEDS ORDERED: HYDROcodone/CHLORPHEN POLIS 5 ML SUS.ER.12H PO PRN (20:30)
[2019-10-11] VITALS (15 sets, daily range): BP systolic 93–127; BP diastolic 54–75
[2019-10-11] MEDS: LEVOTHYROXINE 50 MCG TABLET PO SCH ×2 (05:37→09:10)
[2019-10-11 06:48] LABS: BASO % 0 % (0-3); EOS # 0.1 x10^3/uL (0.0-0.7); EOS % 1 % (0-3); HEMATOCRIT 44.2 % (39.0-53.0); HEMOGLOBIN 14.7 g/dL (13.0-17.5); LYMPH # 0.2 x10^3/uL (1.0-4.8); LYMPH % 3 % (24-48); MEAN CORPUSCULAR HEMOGLOBIN 33 pg (25-35); MEAN CORPUSCULAR HGB CONC 33 g/dL (31-37); MEAN CORPUSCULAR VOLUME 99 fL (79-100); MONO # 1.3 x10^3/uL (0.0-1.1); MONO % 14 % (0-9); NEUT # 7.8 x10^3uL (1.8-7.7); NEUT % 83 % (31-73); PLATELET COUNT 322 x10^3/uL (140-400); RED BLOOD COUNT 4.49 x10^6/uL (4.30-5.70); RED CELL DISTRIBUTION WIDTH 14.2 % (11.5-14.5); WHITE BLOOD COUNT 9.5 x10^3/uL (4.0-11.0)
[2019-10-11 07:19] LABS: ALBUMIN 2.3 g/dL (3.4-5.0); ALBUMIN/GLOBULIN RATIO 0.5 (1.0-1.7); CALCIUM 8.5 mg/dL (8.5-10.1); CREATININE 0.6 mg/dL (0.7-1.3); GFR 137.9; POTASSIUM 4.3 mmol/L (3.5-5.1); TOTAL BILIRUBIN 0.7 mg/dL (0.2-1.0); TOTAL PROTEIN 6.6 g/dL (6.4-8.2)
[2019-10-11] MEDS: FERROUS SULFATE 325 MG TABLET. PO SCH (09:10)
[2019-10-11] MEDS: AZITHROMYCIN 250 MG TABLET. PO SCH (09:10)
[2019-10-11] MEDS: POTASSIUM CHLORIDE 10 MEQ TABLET.ER. PO SCH ×2 (09:10→20:05)
[2019-10-11] MEDS: ATENOLOL 50 MG TABLET PO SCH (09:11)
[2019-10-11] MEDS: MULTIVITAMIN with MINERAL TABLET. PO SCH (09:13)
[2019-10-11 13:59] LABS: % ATYL 4 % (0-0); % BANDS 8 % (0-9); % LYMPHS 3 % (24-48); % MONOS 17 % (0-10); % SEGS 68 % (35-66)
[2019-10-11 14:00] LABS: PLT ESTIMATE ADEQUATE (ADEQUATE)
[2019-10-11] MEDS: ACETAMINOPHEN 325 MG TABLET PO PRN (20:05)
[2019-10-12] VITALS (9 sets, daily range): BP systolic 107–130; BP diastolic 56–85
--- NOTE | 2019-10-12 00:38 | PN ---
DATE: 10/11/2019 CHIEF COMPLAINT: Shortness of breath. SUBJECTIVE: The patient had a low-grade temperature spike yesterday. He also had a flu shot. The cough is persistent and is less. He denied any significant pleuritic type chest pain. He was moved to the ICU for further one-on-one monitoring. OBJECTIVE FINDINGS: VITAL SIGNS: Today, temperature is 98.9 degrees Fahrenheit, blood pressure is 116/74, pulse rate remained slightly elevated at rest at 103 per minute, otherwise regular sinus tachycardia. HEENT: Head is without trauma. Pupils are reactive. Sclerae is nonicteric. Oropharynx is clear. NECK: Supple. Previous surgery noted on the left cheek. LUNGS: Shows fairly good air movement, diminished breath sounds at both bases. No wheezing noted. Minimal rhonchi in the right upper lung field. CARDIOVASCULAR: Showed a tachycardic rhythm, regular rate at 103 per minute. There is an audible S1. There is a grade 3/6 systolic ejection murmur, early in systole that ends before the second heart sound. There is no diastolic murmur. The murmur is best heard at the right sternal border by the xiphoid process. Peripheral pulses are palpable and full. ABDOMEN: Soft, scaphoid, nontender. There is no organomegaly. Bowel sounds were normoactive. EXTREMITIES: Show no cyanosis or edema. NEUROLOGIC: Speech is fluent, focally intact. Motor and sensation are intact. LABORATORY STUDIES: His hemoglobin today is 14.7 g/dL. White count is diminished at 9500. Serum sodium is 127 and holding on. His creatinine is 0.6. A urinary sodium is still pending. ASSESSMENT: 1. Community-acquired pneumonia, stable. 2. Chronic obstructive pulmonary disease. 3. Persistent tachycardia. 4. Hyponatremia, asymptomatic, most likely due to syndrome of inappropriate antidiuretic hormone. 5. 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 He thinks that it was a stage 1 lesion. He has had adjuvant chemotherapy starting in November initially with carboplatin, TELETYPE ADJUSTER-16 regimen. Now, he is in the midst of Opdivo treatment. Opdivo is a very expensive tyrosine kinase inhibitor. 6. History of parotid gland tumor. PLAN: 1. Addition of daily atenolol to slow heart rate down. 2. Continue antibiotics. 3. Cough syrup as needed. 4. Serial chemistries. 5. I am awaiting the urinary sodium result. 6. Discharge planning soon. MARTHA EUCEDA MD DR: LEANN/janet JOB#: [id number] / [id number]
[2019-10-12] MEDS: LEVOTHYROXINE 50 MCG TABLET PO SCH (05:57)
[2019-10-12 07:11] LABS: BASO # 0.1 x10^3/uL (0.0-0.2); BASO % 1 % (0-3); EOS % 0 % (0-3); HEMATOCRIT 41.6 % (39.0-53.0); HEMOGLOBIN 14.1 g/dL (13.0-17.5); LYMPH # 0.2 x10^3/uL (1.0-4.8); LYMPH % 2 % (24-48); MEAN CORPUSCULAR HEMOGLOBIN 34 pg (25-35); MEAN CORPUSCULAR HGB CONC 34 g/dL (31-37); MEAN CORPUSCULAR VOLUME 99 fL (79-100); MONO # 1.2 x10^3/uL (0.0-1.1); MONO % 12 % (0-9); NEUT # 8.5 x10^3uL (1.8-7.7); NEUT % 85 % (31-73); PLATELET COUNT 371 x10^3/uL (140-400); RED BLOOD COUNT 4.22 x10^6/uL (4.30-5.70); RED CELL DISTRIBUTION WIDTH 14.6 % (11.5-14.5); WHITE BLOOD COUNT 9.9 x10^3/uL (4.0-11.0)
[2019-10-12 07:27] LABS: ALBUMIN 2.2 g/dL (3.4-5.0); ALBUMIN/GLOBULIN RATIO 0.5 (1.0-1.7); CALCIUM 8.4 mg/dL (8.5-10.1); CREATININE 0.5 mg/dL (0.7-1.3); GFR 170.2; POTASSIUM 3.9 mmol/L (3.5-5.1); TOTAL BILIRUBIN 0.8 mg/dL (0.2-1.0); TOTAL PROTEIN 6.6 g/dL (6.4-8.2)
[2019-10-12] MEDS: MULTIVITAMIN with MINERAL TABLET. PO SCH (08:01)
[2019-10-12] MEDS: ATENOLOL 50 MG TABLET PO SCH (08:01)
[2019-10-12] MEDS: POTASSIUM CHLORIDE 10 MEQ TABLET.ER. PO SCH (08:01)
[2019-10-12] MEDS: FERROUS SULFATE 325 MG TABLET. PO SCH (08:01)
[2019-10-12] MEDS: AZITHROMYCIN 250 MG TABLET. PO SCH (08:01)
[2019-10-12] MEDS ORDERED: AZIT250T6 PO (09:00)
[2019-10-12] MEDS ORDERED: ATEN50TA PO (09:00)
[2019-10-12] MEDS ORDERED: LACTOBACILLUS RHAMNOSUS GG 1 CAPSULE. PO SCH (09:00)
--- NOTE | 2019-10-12 09:30 | NUR ---
Pt being discharged to home. PT has no support or family. PT is to follow up at [place] next week. Pt does not have Oxygen at home or nebulizers at home. Pt has been wearing the O2 at night. Dr Crow does not believe the patient needs any of these things at this time. Pt leaving via and security is driving patient [place] to [facility]. Julianna GREGORIO
--- NOTE | 2019-10-12 10:30 | NUR ---
pt needed some time coming off the o2 and relaxing before going to get his car [place] [facility]. Pt was taken in and driven to security accompanied by RN. Sujey Aguillon
--- NOTE | 2019-10-13 09:59 | DS ---
DATE OF DISCHARGE: 10/12/2019 ATTENDING PHYSICIAN: Dr. Goldstein. FINAL DISCHARGE DIAGNOSES: 1. Community-acquired pneumonia, right lower lobe. 2. Known history of small cell cancer of the lung with previous right upper lobe resection. 3. Currently undergoing chemotherapy through [facility]. He is in the midst of his Opdivo treatment. 4. History of recent parotid gland malignancy with left parotid gland resection. 5. Chronic obstructive pulmonary disease. 6. Asymptomatic hyponatremia, due to syndrome of inappropriate antidiuretic hormone secretion. 7. Hypothyroidism, on replacement. 8. Tachycardia, probably due to his underlying pulmonary hypertension, treated. 9. Aortic stenosis. HISTORY AND PHYSICAL: The patient is a 59-year-old gentleman with metachronous malignancies. He had a diagnosis 2 years ago of small cell cancer of the lung resected. He is currently undergoing adjuvant chemotherapy with Opdivo through the Oncology Department at [facility]. He presented with cough and shortness of breath. Chest x-ray demonstrated bilateral infiltrates and pleural effusions consistent with community-acquired pneumonia. He was admitted for further treatment and evaluation. PHYSICAL EXAMINATION: Please see the dictated note. PERTINENT LABORATORY AND X-RAY STUDIES: Daily serial chemistries were drawn. His sodium remained persistently at 127 mEq per liter. Urinary sodium was inappropriately high at 39. This is consistent with SIADH. His echocardiogram showed an ejection fraction estimated at 55%. He has significant aortic valve sclerosis with a mean gradient of 20 mmHg. His chest x-rays and followup films showed stable bibasilar infiltrates. CT of the chest showed no evidence of pulmonary embolism, small right basilar pleural effusion with thickened pleura, loculated right apical fluid with pleural thickening related to surgery, left lower lobe ground glass opacities, right upper lobe irregular nodular opacity related to sequela of prior treatment. Postoperative changes with a previous right upper lobectomy. COURSE IN THE HOSPITAL: The patient was admitted. He received 4 full days of intravenous Rocephin and Zithromax with marked improvement. Cough was better. Cardiology consultation was entertained. Beta blockade was started and he had improvement in his heart rate down to the mid 80s. The patient did well. He was breathing well. He is fairly independent. By the fifth hospital day, his vital signs were stable. He was afebrile. He was moving air well without any wheezing. He had diminished breath sounds still at both bases. He wanted to go home. I felt this is reasonable. I recommended 7 more days of cephalexin 500 mg p.o. t.i.d., Zithromax 250 p.o. daily for 7 more days, Tussionex 4 mL q.12 hours p.r.n. cough, and atenolol 50 mg p.o. daily. He will continue his multivitamin and Synthroid dose is unchanged. I suggested a followup visit with his PCP, Dr. Angelica Benitez in 1 weeks' time with repeat chest x-ray and followup chemistry. For now, the sodium at 127 mEq is not clinically significant. He has no symptoms at this time. He should be followed, should it decrease any further the addition of demeclocycline should be entertained. Strong encouragement to avoid the primary and secondhand cigarette smoke and to curtail alcohol use. Whether or not he will follow through remains to be seen. The patient was then discharged from our hospital in stable condition with explicit instructions and followup care. He will see Dr. Benitez for followup visit as an outpatient. Prescriptions were written. TOTAL DISCHARGE TIME SPENT: 42 minutes. MARTHA EUCEDA MD DR: LEANN/janet JOB#: [id number] / [id number] Angelica Torre AHMED MD
== END 2019-10-12 11:00 | disposition home or self-care (01) | DRG 194 ==
LOC: ER 11:55 → 1 SOUTH 15:15 → ICU 10-10 19:18
PROVIDERS: ADMIT Internal Medicine; ATTEND Internal Medicine
DX: J18.9 Pneumonia, unspecified organism (principal); R64 Cachexia; J98.11 Atelectasis; E87.2 Acidosis; I31.9 Disease of pericardium, unspecified; J44.0 Chronic obstructive pulmonary disease with (acute) lower respiratory infection; J90 Pleural effusion, not elsewhere classified; E22.2 Syndrome of inappropriate secretion of antidiuretic hormone; R17 Unspecified jaundice; R65.10 Systemic inflammatory response syndrome (SIRS) of non-infectious origin without acute organ dysfunction; E03.9 Hypothyroidism, unspecified; N40.0 Benign prostatic hyperplasia without lower urinary tract symptoms; I35.0 Nonrheumatic aortic (valve) stenosis; I27.20 Pulmonary hypertension, unspecified; Z68.22 Body mass index [BMI] 22.0-22.9, adult; Z85.118 Personal history of other malignant neoplasm of bronchus and lung; Z90.2 Acquired absence of lung [part of]; Z92.21 Personal history of antineoplastic chemotherapy; Z87.891 Personal history of nicotine dependence; Z90.49 Acquired absence of other specified parts of digestive tract; Z85.818 Personal history of malignant neoplasm of other sites of lip, oral cavity, and pharynx; Z80.1 Family history of malignant neoplasm of trachea, bronchus and lung; Z82.49 Family history of ischemic heart disease and other diseases of the circulatory system
CPT/HCPCS: 36415; 70450; 71046; 71275; 76705; 80053; 80061; 81001; 82533; 83605; 83880; 84300; 84443; 84484; 85007; 85025; 85027; 85379; 87040; 87804; 90471; 90686; 93005; 93306; 94640; 96361; 96365; J0456; J0696; J1885; J2405; J3475; J7620; Q9967; 99285-25; J7030

== ENCOUNTER 2019-10-20 13:07 | Emergency (ER) | payer OTHER ==
[~2019-10-20] VITALS: Ht 190.5 cm; Wt 77.5 kg
[~2019-10-20 13:07] MED LIST changes: +ATEN50TA PO; +AZIT250T6 PO; +FERR-36 PO; +LEVO50TA PO; +MULT-245 PO
[2019-10-20 14:17] LABS: BASO % 0 % (0-3); EOS % 0 % (0-3); HEMATOCRIT 41.6 % (39.0-53.0); LYMPH # 0.2 x10^3/uL (1.0-4.8); LYMPH % 2 % (24-48); MEAN CORPUSCULAR HEMOGLOBIN 33 pg (25-35); MEAN CORPUSCULAR HGB CONC 34 g/dL (31-37); MEAN CORPUSCULAR VOLUME 97 fL (79-100); MONO # 1.3 x10^3/uL (0.0-1.1); MONO % 12 % (0-9); NEUT # 9.1 x10^3uL (1.8-7.7); NEUT % 85 % (31-73); PLATELET COUNT 788 x10^3/uL (140-400); RED BLOOD COUNT 4.28 x10^6/uL (4.30-5.70); RED CELL DISTRIBUTION WIDTH 14.4 % (11.5-14.5); WHITE BLOOD COUNT 10.6 x10^3/uL (4.0-11.0)
[2019-10-20 14:29] LABS: CREATININE 0.5 mg/dL (0.7-1.3); GFR 170.2; POTASSIUM 3.9 mmol/L (3.5-5.1)
[2019-10-20] MEDS ORDERED: IV NORMAL SALINE 1,000ML 1,000 ML IV ONE (14:30)
[2019-10-20 14:40] LABS: ALBUMIN 2.4 g/dL (3.4-5.0); ALBUMIN/GLOBULIN RATIO 0.5 (1.0-1.7); TOTAL BILIRUBIN 0.8 mg/dL (0.2-1.0); TOTAL PROTEIN 7.4 g/dL (6.4-8.2)
--- NOTE | 2019-10-20 14:45 | RAD ---
PORTABLE CHEST 1V History: Dyspnea. COMPARISON: 10/10/2019. FINDINGS: Opacity at the right upper lobe apex is again identified, and to lesser extent smaller left upper lobe apical opacity is again seen. These appear similar to the previous exam. Pleural and parenchymal opacity in the right and to lesser extent left lower lungs are also again seen. No new areas of airspace consolidation are seen. No evidence of pneumothorax. Cardiomediastinal silhouette stable. Blunting or effusions of the costophrenic angles are similar. IMPRESSION: Stable pleural and parenchymal opacities. No new consolidating infiltrate or pneumothorax is seen. Electronically signed by: Ming Vazquez MD (10/20/2019 2:42 PM) [id number]
[2019-10-20] MEDS ORDERED: FURO-69 PO (15:09)
[2019-10-20 15:18] VITALS: BP 144/99
--- NOTE | 2019-10-20 15:18 | PHYS DOC ---
Adult General Chief Complaint Chief Complaint Weakness HPI HPI 59 years old male presented to the emergency department with the history of generalized weakness he was recently hospitalized for pneumonia patient is diagnosed with the lung cancer status post resection and chemotherapy and radiation therapy Also complaining of exertional shortness breath no fever no chills he still taking his antibiotic for the pneumonia no vomiting no diarrhea Review of Systems Review of Systems Constitutional: Denies fever or chills [] Eyes: Denies change in visual acuity, redness, or eye pain [] HENT: Denies nasal congestion or sore throat [] Respiratory: Denies cough or shortness of breath [] Cardiovascular: No additional information not addressed in HPI [] GI: Denies abdominal pain, nausea, vomiting, bloody stools or diarrhea [] : Denies dysuria or hematuria [] Musculoskeletal: Denies back pain or joint pain [] Integument: Denies rash or skin lesions [] Neurologic: Denies headache, focal weakness or sensory changes [] Endocrine: Denies polyuria or polydipsia [] All other systems were reviewed and found to be within normal limits, except as documented in this note. Current Medications Current Medications Current Medications Medications (Trade) Dose Ordered Sig/Shawn Start Time Stop Time Status Last Admin Dose Admin Sodium Chloride 1,000 ml @ 1,000 mls/hr 1X ONCE 10/20/19 14:30 10/20/19 15:29 10/20/19 14:26 1,000 MLS/HR Allergies Allergies Allergies Coded Allergies Type Severity Reaction Last Updated Verified No Known Drug Allergies 10/20/19 No Physical Exam Physical Exam Constitutional: Well developed, well nourished, no acute distress, non-toxic appearance. [] HENT: Normocephalic, atraumatic, bilateral external ears normal, oropharynx moist, no oral exudates, nose normal. [] Eyes: PERRLA, EOMI, conjunctiva normal, no discharge. [] Neck: Normal range of motion, no tenderness, supple, no stridor. [] Cardiovascular:Heart rate regular rhythm, no murmur [] Lungs & Thorax: Bilateral breath sounds clear to auscultation [] Abdomen: Bowel sounds normal, soft, no tenderness, no masses, no pulsatile masses. [] Skin: Warm, dry, no erythema, no rash. [] Back: No tenderness, no CVA tenderness. [] Extremities: No tenderness, no cyanosis, no clubbing, ROM intact, no edema. [] Neurologic: Alert and oriented X 3, normal motor function, normal sensory function, no focal deficits noted. [] Psychologic: Affect normal, judgement normal, mood normal. [] Current Patient Data Vital Signs Vital Signs Date Time Temp Pulse Resp B/P (MAP) Pulse Ox O2 Delivery O2 Flow Rate FiO2 10/20/19 14:25 85 13 117/66 (83) 95 Room Air 10/20/19 13:23 98.0 Lab Results Laboratory Tests Test 10/20/19 14:00 10/20/19 14:38 White Blood Count 10.6 x10^3/uL (4.0-11.0) Red Blood Count 4.28 x10^6/uL (4.30-5.70) L Hemoglobin 14.0 g/dL (13.0-17.5) Hematocrit 41.6 % (39.0-53.0) Mean Corpuscular Volume 97 fL (79-100) Mean Corpuscular Hemoglobin 33 pg (25-35) Mean Corpuscular Hemoglobin Concent 34 g/dL (31-37) Red Cell Distribution Width 14.4 % (11.5-14.5) Platelet Count 788 x10^3/uL (140-400) H Neutrophils (%) (Auto) 85 % (31-73) H Lymphocytes (%) (Auto) 2 % (24-48) L Monocytes (%) (Auto) 12 % (0-9) H Eosinophils (%) (Auto) 0 % (0-3) Basophils (%) (Auto) 0 % (0-3) Neutrophils # (Auto) 9.1 x10^3uL (1.8-7.7) H Lymphocytes # (Auto) 0.2 x10^3/uL (1.0-4.8) L Monocytes # (Auto) 1.3 x10^3/uL (0.0-1.1) H Eosinophils # (Auto) 0.0 x10^3/uL (0.0-0.7) Basophils # (Auto) 0.0 x10^3/uL (0.0-0.2) Sodium Level 127 mmol/L (136-145) L Potassium Level 3.9 mmol/L (3.5-5.1) Chloride Level 87 mmol/L (98-107) L Carbon Dioxide Level 31 mmol/L (21-32) Anion Gap 9 (6-14) Blood Urea Nitrogen 7 mg/dL (8-26) L Creatinine 0.5 mg/dL (0.7-1.3) L Estimated GFR (Cockcroft-Gault) 170.2 BUN/Creatinine Ratio 14 (6-20) Glucose Level 99 mg/dL (70-99) Calcium Level 9.0 mg/dL (8.5-10.1) Total Bilirubin 0.8 mg/dL (0.2-1.0) Aspartate Amino Transferase (AST) 25 U/L (15-37) Alanine Aminotransferase (ALT) 23 U/L (16-63) Alkaline Phosphatase 183 U/L (46-116) H Troponin I Quantitative < 0.017 ng/mL (0-0.055) EU-Kir-X-Type Natriuretic Peptide 1545 pg/mL (0-124) H Total Protein 7.4 g/dL (6.4-8.2) Albumin 2.4 g/dL (3.4-5.0) L Albumin/Globulin Ratio 0.5 (1.0-1.7) L Prothrombin Time 13.0 SEC (9.4-11.4) H Prothrombin Time INR 1.3 (0.9-1.1) H EKG EKG [] Radiology/Procedures Radiology/Procedures [] Course & Med Decision Making Course & Med Decision Making Pertinent Labs and Imaging studies reviewed. (See chart for details) [] Final Impression Final Impression [] Problems: (1) Fluid overload Qualifiers: Qualified Codes: E87.70 - Fluid overload, unspecified Dragon Disclaimer Dragon Disclaimer This electronic medical record was generated, in whole or in part, using a voice recognition dictation system. AFTAB FRANCISCO MD Oct 20, 2019 15:18
--- NOTE | 2019-10-21 06:11 | EKG ---
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
== END 2019-10-20 15:21 | disposition home or self-care (01) ==
LOC: ER 13:07
DX: E87.70 Fluid overload, unspecified (principal); Z85.118 Personal history of other malignant neoplasm of bronchus and lung
CPT/HCPCS: 36415; 71045; 80053; 83880; 84484; 85025; 85610; 93005; 99285-25; J7030

== ENCOUNTER 2019-10-24 17:35 | Inpatient (IN) | payer OTHER ==
[~2019-10-24] VITALS: Ht 190.5 cm; Wt 71.2 kg
[~2019-10-24 17:35] MED LIST changes: +FURO-69 PO
[2019-10-24] MEDS ORDERED: IV NORMAL SALINE 1,000ML 1,000 ML IV SCH (17:42)
[2019-10-24] MEDS ORDERED: IPRATRPIUM/ALBUTEROL 0.5/2.5MG 3 ML NEBU. NEB ONE (17:45)
--- NOTE | 2019-10-24 17:50 | PHYS DOC ---
Past History Past Medical History: Cancer, COPD, Hypothyroid, Other Additional Past Medical Histor: lung cancer currently on chemo; left parotid cancer; skin cancer (REBECCA LAZO Jr., DO) Past Surgical History: Appendectomy, Other Additional Past Surgical Histo: SALIVA GLAND REMOVED LEFT SIDE; uppper right lobectomy (REBECCA LAZO Jr., DO) Alcohol Use: Occasionally Drug Use: None (REBECCA LAZO Jr., DO) Adult General Chief Complaint Chief Complaint: SHORTNESS OF BREATH HPI HPI Patient is a 59-year-old male who presents with complaint of cough and shortness of breath that has been intermittent over the last 3 weeks. Patient states the cough is been productive of green colored sputum at times. He states that over the last 24 hours symptoms have gotten worse and he states that he gets very short of breath after just taking a few steps. Patient also states that he feels like he is been running a fever but has not actually checked his temperature.[] (REBECCA LAZO Jr., DO) Review of Systems Review of Systems Constitutional: Positive subjective fever and chills [] Respiratory: Positive cough and shortness of breath [] Cardiovascular: No additional information not addressed in HPI [] GI: Denies abdominal pain, nausea, vomiting or diarrhea [] Integument: Denies rash or skin lesions [] Neurologic: Denies headache, focal weakness or sensory changes [] All other systems were reviewed and found to be within normal limits, except as documented in this note. (REBECCA LAZO Jr., DO) Current Medications Current Medications Current Medications Medications (Trade) Dose Ordered Sig/Shawn Start Time Stop Time Status Last Admin Dose Admin Albuterol/ Ipratropium (Duoneb) 3 ml 1X ONCE 10/24/19 17:45 10/24/19 17:46 UNV Sodium Chloride 1,000 ml @ 1,000 mls/hr Q1H 10/24/19 17:42 10/24/19 18:41 UNV (REBECCA LAZO Jr., DO) Allergies Allergies Allergies Coded Allergies Type Severity Reaction Last Updated Verified No Known Drug Allergies 10/20/19 No (REBECCA LAZO Jr., DO) Physical Exam Physical Exam Constitutional: Well developed, well nourished, no acute distress, non-toxic appearance. [] HENT: Normocephalic, atraumatic, bilateral external ears normal, oropharynx moist, no oral exudates, nose normal. [] Eyes: PERRLA, EOMI, conjunctiva normal, no discharge. [] Neck: Normal range of motion, no tenderness, supple, no stridor. [] Cardiovascular: Regular rate and rhythm[] Lungs & Thorax: Bilateral breath sounds clear to auscultation [] Abdomen: Bowel sounds normal, soft, no tenderness. [] Skin: Warm, dry, no erythema, no rash. [] Extremities: No tenderness, no cyanosis, no clubbing, ROM intact. [] Neurologic: Alert and oriented X 3, no focal deficits noted. [] (REBECCA LAZO Jr., DO) EKG EKG EKG demonstrates normal sinus rhythm with rate of 95. There is some repolariza tion abnormality noted.[] (REBECCA LAZO Jr., DO) Radiology/Procedures Radiology/Procedures [] (REBECCA LAZO Jr., DO) Course & Med Decision Making Course & Med Decision Making Pertinent Labs and Imaging studies reviewed. (See chart for details) [] (REBECCA LAZO Jr., DO) Course & Med Decision Making Patient's labs were remarkable only for an elevated proBNP of 1600. His chest x- ray does not show a new consolidation. It is similar to his chest x-ray from 10/20/19. The patient appears to be quite fatigued in the exam room. I suspect he is still fluid overloaded. I will give him 40 mg of Lasix IV and admit him to the hospital. I spoke with Dr. Goldstein and he has accepted the patient for admission. (JOANNA OCONNELL DO) Dragon Disclaimer Dragon Disclaimer This electronic medical record was generated, in whole or in part, using a voice recognition dictation system. (REBECCA LAZO Jr., DO) Departure Departure: Impression: Primary Impression: Dyspnea Additional Impression: Fluid overload Disposition: ADMITTED INPATIENT Admitting Physician: Shaye Goldstein (JOANNA OCONNELL DO) Condition: STABLE Referrals: NATALIE KINNEY MD (PCP) Problem Qualifiers Primary Impression: Dyspnea Dyspnea type: unspecified Qualified Codes: R06.00 - Dyspnea, unspecified Additional Impression: Fluid overload Hypervolemia type: other Qualified Codes: E87.79 - Other fluid overload REBECCA LAZO Jr., DO Oct 24, 2019 17:50 JOANNA OCONNELL DO Oct 24, 2019 19:45
[2019-10-24 18:45] LABS: BASO # 0.1 x10^3/uL (0.0-0.2); BASO % 1 % (0-3); EOS % 0 % (0-3); HEMATOCRIT 39.8 % (39.0-53.0); HEMOGLOBIN 13.7 g/dL (13.0-17.5); LYMPH # 0.3 x10^3/uL (1.0-4.8); LYMPH % 3 % (24-48); MEAN CORPUSCULAR HEMOGLOBIN 33 pg (25-35); MEAN CORPUSCULAR HGB CONC 34 g/dL (31-37); MEAN CORPUSCULAR VOLUME 95 fL (79-100); MONO # 1.2 x10^3/uL (0.0-1.1); MONO % 13 % (0-9); NEUT # 7.7 x10^3uL (1.8-7.7); NEUT % 83 % (31-73); PLATELET COUNT 498 x10^3/uL (140-400); RED BLOOD COUNT 4.17 x10^6/uL (4.30-5.70); RED CELL DISTRIBUTION WIDTH 13.8 % (11.5-14.5); WHITE BLOOD COUNT 9.3 x10^3/uL (4.0-11.0)
[2019-10-24 18:54] LABS: CALCIUM 8.7 mg/dL (8.5-10.1); CREATININE 0.5 mg/dL (0.7-1.3); GFR 170.2; POTASSIUM 4.2 mmol/L (3.5-5.1)
[2019-10-24 19:07] LABS: ALBUMIN 2.4 g/dL (3.4-5.0); ALBUMIN/GLOBULIN RATIO 0.5 (1.0-1.7); TOTAL BILIRUBIN 0.9 mg/dL (0.2-1.0); TOTAL PROTEIN 7.2 g/dL (6.4-8.2)
--- NOTE | 2019-10-24 19:31 | RAD ---
Examination: PORTABLE CHEST 1V History: Dyspnea Comparison/Correlation: 10/20/2019 portable chest x-ray exam Findings: Portable upright frontal view chest was obtained. Heart size is within normal limits. Biapical pleural thickening greater on dry noted. Right basilar scarring noted. Right basilar opacification unchanged. Bibasilar costophrenic angle blunting again seen which may represent pleural thickening and/or effusions. Dextro convexity of the spine noted. Impression: No change in pulmonary aeration. Electronically signed by: Wilson Lala MD (10/24/2019 7:29 PM) [facility]
[2019-10-24] MEDS ORDERED: FUROSEMIDE 40 MG/4 ML VIAL IVP ONE (20:00)
[2019-10-24 21:37] VITALS: BP 114/80
--- NOTE | 2019-10-25 02:49 | EKG ---
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
[2019-10-25 06:25] VITALS: BP 107/73
[2019-10-25 10:06] VITALS: BP 106/71
[2019-10-25 11:26] LABS: BACTERIA,URINE 0 /HPF (0-FEW); BILIRUBIN,URINE NEG (NEG); CLARITY,URINE CLEAR; COLOR,URINE YELLOW; GLUCOSE,URINE NEG (NEG); NITRITE,URINE NEG (NEG); SQUAMOUS EPITHELIAL CELL,UR FEW /LPF; UROBILINOGEN,URINE 0.2 mg/dL (0.2 mg/dL)
[2019-10-25] MEDS ORDERED: AZITHROMYCIN 250 MG TABLET. PO ONE (15:15)
[2019-10-25] MEDS ORDERED: FUROSEMIDE 20 MG/2 ML VIAL IVP ONE (15:15)
[2019-10-25 15:18] VITALS: BP 127/85
[2019-10-25 15:20] LABS: CALCIUM 8.2 mg/dL (8.5-10.1); CREATININE 0.4 mg/dL (0.7-1.3); GFR 220.2; POTASSIUM 3.4 mmol/L (3.5-5.1)
--- NOTE | 2019-10-25 16:24 | HP ---
ADMIT DATE: 10/24/2019 HISTORY OF PRESENT ILLNESS: The patient is a 59-year-old male patient who came to the Emergency Room complaining of increasing shortness of breath, cough that has been intermittent for the last 3 weeks. He states his cough has been productive of green colored sputum at times. He states that over the last 24 hours, has gotten worse. He states that he gets very short of breath after just taking a few steps. The patient also stated that he feels he has been running a fever, but has not actually checked his temperature. He was evaluated in the Emergency Room and has had multiple investigation including labs, EKG and chest x-ray. His EKG showed that he was in normal sinus rhythm with a rate of 95 beats per minute. His chest x-ray showed that the heart size within normal limits. He has biapical pleural thickening, greater on the right side, has also right basilar scarring noted, right basilar opacification unchanged, bibasilar costophrenic angle blunting again seen, which may represent pleural thickening and/or effusion. Dextroconvexity of the spine is noted. His lab work showed that his white cell count was normal. His chemistry showed he has hyponatremia. His beta natriuretic peptide was 1636. He was admitted with shortness of breath with probably acute on chronic diastolic dysfunction, possible superimposed pneumonia. PAST MEDICAL HISTORY: Parotid cancer, chronic obstructive pulmonary disease, right upper lobe bronchogenic cancer. He also has hypothyroidism and benign prostatic hypertrophy. PAST SURGICAL HISTORY: Significant for right upper lobectomy for lung cancer. Parotid tumor resection, also had thoracentesis x 2. He underwent esophagogastroduodenoscopy and colonoscopy. ALLERGIES: He has no known drug allergies. The patient also has chronic obstructive pulmonary disease. He has been receiving chemotherapy every 2 weeks since January, apparently has also chronic hyponatremia. MEDICATIONS: He is currently on levothyroxine 50 mcg once a day, multivitamin 1 tablet once a day, atenolol 50 mg once a day. FAMILY HISTORY: He has 2 brothers and 1 sister, younger and apparently healthy. His father at the age of 70 because of myocardial infarction. Mother at the age of 73 because of brain tumor and lung cancer. SOCIAL HISTORY: He is , has 4 children from first marriage and 2 children from the second marriage. He quit smoking about 7-8 years ago. He drinks 3-4 beers a day. 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 He retired after 17 years in the [employer]. REVIEW OF SYSTEMS: The patient denied any blurring of vision, cataract, glaucoma or macular degeneration. Denied any earache, tinnitus or sensorineural deafness. Denied any nosebleeds, stuffy nose or postnasal drip. Denied any sore throat, sore tongue, toothache, hoarseness of voice or difficulty swallowing. He denied any nausea, vomiting, diarrhea or constipation. Denied any hematemesis, melena or hematochezia. Denied any dysuria, frequency or hematuria. Denied any chest pain. Did complain of shortness of breath, orthopnea, but no paroxysmal nocturnal dyspnea. He did complain of cough with whitish to yellowish to greenish sputum. PHYSICAL EXAMINATION: GENERAL: On arrival to the Emergency Room, he was a well-developed, well-nourished, in no acute distress. VITAL SIGNS: His heart rate was 98, blood pressure was 113/72, temperature was 97.6, respiratory rate 20, and oxygen saturation was 98%. HEAD, EYES, EARS, NOSE AND THROAT: Showed normocephalic, atraumatic. NECK: Supple. HEART: Showed normal first and second heart sounds with no gallop, rub or murmur. CHEST: Clear to auscultation. I could not really appreciate any crepitation or rhonchi. ABDOMEN: Distended, soft, nontender. NEUROLOGIC: He was awake, alert, responding appropriately. All his cranial nerves are intact. He ambulates with ___. LABORATORY DATA: On arrival to the Emergency Room, his white cell count was 9300, hemoglobin 13.7, hematocrit 39, MCV 95, and platelet count of 498,000 with normal manual differential. His chemistry showed serum sodium was 124, potassium 4.2, chloride 84, bicarbonate 32, anion gap of 8, BUN 6, creatinine 0.5, estimated GFR was 170 mL per minute, his glucose 107, his calcium was 8.7. Total bilirubin, AST, ALT were normal. Alkaline phosphatase slightly elevated. His beta natriuretic peptide was 1636. Total protein was 7.2, albumin was 2.4. His influenza A and B were negative. Urinalysis showed the urine was yellow, clear with a pH of 7, specific gravity 1.015. The urine was negative for protein, glucose, small amount of ketones, negative for blood and nitrites. The urine was negative for leukocyte esterase. There are 1-2 rbc's, 1-4 wbc's, and no bacteria. ASSESSMENT AND PLAN: In summary, this is a 59-year-old male patient with multiple medical problems including chronic obstructive pulmonary disease, apparently he is an ex-smoker, quit smoking years ago. He has lung cancer, status post right upper lobectomy. Most recently, he has been receiving chemotherapy every 2 weeks. He has bqxlyalj-pj-wlcqlr aortic stenosis. He comes in with shortness of breath, cough with whitish to greenish sputum. He continued to have hyponatremia. My plan is to consult the cardiology team. Obviously, I believe I will start him on IV antibiotic and also IV Lasix and will continue to monitor his lab work closely. According to him, he was supposed to be referred for further workup for his aortic stenosis as an outpatient. GIL KELLY MD DR: NED/janet JOB#: [id number] / [id number]
[2019-10-25 19:18] VITALS: BP 95/64
[2019-10-25 20:57] VITALS: BP 109/72
[2019-10-25] MEDS ORDERED: ACETAMINOPHEN 325 MG TABLET PO ONE ×2 (22:35→23:00)
[2019-10-25 23:11] VITALS: BP 114/75
--- NOTE | 2019-10-26 04:02 | EKG ---
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
--- NOTE | 2019-10-26 04:07 | PN ---
DATE: 10/25/2019 SUBJECTIVE: The patient is sitting slightly propped up in bed and continued to complain of shortness of breath and cough with whitish to sometimes greenish sputum. He denied any chest pain. He said he has skipped chemotherapy for almost a month now because he has not been feeling well to withstand chemotherapy and shortness of breath and frequent courses of antibiotic. PHYSICAL EXAMINATION: GENERAL: When I saw him this afternoon, he was resting slightly propped up in bed and slightly tachypneic, but there is no pallor, jaundice, cyanosis, or thyromegaly. No jugular venous distention. No limb edema. VITAL SIGNS: His heart rate was 100, blood pressure was 106/71, temperature was 97.7, respiratory rate 20, and oxygen saturation was 100% on 1 liter of oxygen. HEAD, EYES, EARS, NOSE, AND THROAT: Showed normocephalic and atraumatic. NECK: Supple. HEART: Showed normal first and second heart sounds with no gallop, rub, or murmur. CHEST: Clear to auscultation. No crepitation and no rhonchi. Shows central trachea, equal in expansion, equal air entry, vesicular sounds with dull percussion noted on both sides posteriorly. I really could not appreciate any crepitation or rhonchi. ABDOMEN: Slightly distended, soft, and nontender. NEUROLOGIC: He was awake, alert, and responding appropriately. All cranial nerves are intact. He moves extremities without difficulty. His intake over the last 24 hours was 1100 and output was 450. LABORATORY DATA: Today's labs are still pending at the time of this dictation. ASSESSMENT: 1. Rjfon-jj-grxciol diastolic congestive heart failure. 2. Wlrlbbsq-cq-idhphl aortic stenosis. 3. Chronic obstructive airway disease. 4. Lung cancer, status post right upper lobectomy, status post chemotherapy every 2 weeks, although he has not had any chemotherapy for the last 4 weeks, probably Community-acquired pneumonia. PLAN: My plan is to continue with IV Lasix and continue with IV ceftriaxone as well as oral Zithromax and I have also consulted the Cardiology team. I am not sure whether he is a candidate for an aortic valve replacement given that his aortic valve is moderate to severely stenotic. AHMED M. LETICIA, MD DR: NED/janet JOB#: [id number] / [id number]
[2019-10-26] MEDS: LEVOTHYROXINE 50 MCG TABLET PO SCH (06:00)
[2019-10-26 06:05] VITALS: BP 108/73
[2019-10-26 07:17] LABS: HEMATOCRIT 38.9 % (39.0-53.0); HEMOGLOBIN 13.3 g/dL (13.0-17.5); RED BLOOD COUNT 4.12 x10^6/uL (4.30-5.70); RED CELL DISTRIBUTION WIDTH 13.9 % (11.5-14.5); WHITE BLOOD COUNT 7.8 x10^3/uL (4.0-11.0)
[2019-10-26 07:26] LABS: CALCIUM 8.6 mg/dL (8.5-10.1); CREATININE 0.6 mg/dL (0.7-1.3); GFR 137.9; POTASSIUM 3.1 mmol/L (3.5-5.1)
[2019-10-26] MEDS: FUROSEMIDE 40 MG/4 ML VIAL IVP SCH (08:13)
[2019-10-26] MEDS: MULTIVITAMIN with MINERAL TABLET. PO SCH (08:13)
[2019-10-26] MEDS ORDERED: POTASSIUM CHLORIDE 20 MEQ TABLET.ER. PO ONE ×2 (08:15→15:15)
[2019-10-26] MEDS: ATENOLOL 50 MG TABLET PO SCH (09:00)
[2019-10-26 11:02] VITALS: BP 108/74
[2019-10-26 15:10] VITALS: BP 102/70
[2019-10-26] MEDS: ENOXAPARIN 40 MG/0.4 ML SYRINGE. SQ SCH (15:51)
--- NOTE | 2019-10-26 16:51 | PDOC2 ---
CARDIAC CONSULT DATE OF CONSULT Date Of Consult DATE: 10/26/19 TIME: 16:44 REASON FOR CONSULT Reason for Consult Possible significant aortic stenosis REFERRING PHYSICIAN Referring Physician Dr. Goldstein SOURCE Source: Chart review, Patient HPI History of Present Illness The patient is a 59-year-old male who was admitted through the emergency room with 2-3 weeks of gradually increasing shortness of breath and cough. significantly increased over the past day or 2 prior to admission and was associated with green sputum. Patient has a history of lung cancer treated with chemotherapy as well as COPD. He was initially diuresed and is feeling better. BNP was elevated at 1600. His EKG showed a sinus rhythm with no acute ischemic changes. Of note the patient is status post a right upper lobectomy. He also reports a history of aortic stenosis although this has not been followed up for a number of years. He is feeling better after his initial treatment. PAST MEDICAL HISTORY Cardiovascular: HTN, aortic stenosis Pulmonary: COPD, Other (lung cancer and chemotherapy) Endocrine: Hypothyroidism PAST SURGICAL HISTORY Past Surgical History: Other (right upper lobectomy and chemotherapy.) FAMILY HISTORY Family History: Hypertension SOCIAL HISTORY Smoke: Quit ALCOHOL: rare CURRENT MEDICATIONS Current Medications Current Medications Sodium Chloride 1,000 ml @ 1,000 mls/hr Q1H IV Last administered on 10/24/19at 17:42; Start 10/24/19 at 17:42; Stop 10/24/19 at 18:41; Status DC Albuterol/ Ipratropium (Duoneb) 3 ml 1X ONCE NEB Last administered on 10/24/19at 17:53; Start 10/24/19 at 17:45; Stop 10/24/19 at 17:46; Status DC Furosemide (Lasix) 40 mg 1X ONCE IVP Last administered on 10/24/19at 19:51; Start 10/24/19 at 20:00; Stop 10/24/19 at 20:01; Status DC Atenolol (Tenormin) 50 mg DAILY PO ; Start 10/26/19 at 09:00 Levothyroxine Sodium (Synthroid) 50 mcg DAILY06 PO Last administered on 10/26/19at 06:00; Start 10/26/19 at 06:00 Multivitamins/ Calcium (Thera-M Plus) 1 tab DAILY PO Last administered on 10/26/19at 08:13; Start 10/26/19 at 09:00 Ceftriaxone Sodium 1 gm/ Sodium Chloride 50 ml @ 100 mls/hr Q24H IV Last administered on 10/26/19at 15:51; Start 10/25/19 at 15:30 Furosemide (Lasix) 20 mg 1X ONCE IVP Last administered on 10/25/19at 16:04; Start 10/25/19 at 15:15; Stop 10/25/19 at 15:16; Status DC Furosemide (Lasix) 40 mg DAILY IVP Last administered on 10/26/19at 08:13; Start 10/26/19 at 09:00 Azithromycin (Zithromax) 500 mg 1X ONCE PO Last administered on 10/25/19at 16:04; Start 10/25/19 at 15:15; Stop 10/25/19 at 15:23; Status DC Acetaminophen (Tylenol) 325 mg STK-MED ONCE PO ; Start 10/25/19 at 22:35; Stop 10/25/19 at 22:35; Status DC Acetaminophen (Tylenol) 650 mg 1X ONCE PO Last administered on 10/25/19at 23:00; Start 10/25/19 at 23:00; Stop 10/25/19 at 23:05; Status DC Acetaminophen (Tylenol) 650 mg PRN Q6HRS PRN PO PAIN / TEMP; Start 10/25/19 at 23:00 Potassium Chloride (Klor-Con) 40 meq 1X ONCE PO Last administered on 10/26/19at 08:41; Start 10/26/19 at 08:15; Stop 10/26/19 at 08:24; Status DC Lactobacillus Rhamnosus (Culturelle) 1 cap BID PO ; Start 10/26/19 at 21:00 Potassium Chloride (Klor-Con) 40 meq 1X ONCE PO Last administered on 10/26/19at 15:51; Start 10/26/19 at 15:15; Stop 10/26/19 at 15:24; Status DC Potassium Chloride (Klor-Con) 20 meq TID PO ; Start 10/26/19 at 21:00 Enoxaparin Sodium (Lovenox 40mg Syringe) 40 mg Q24H SQ Last administered on 10/26/19at 15:51; Start 10/26/19 at 16:00 Active Scripts Active Lasix (Furosemide) 20 Mg Tablet 1 Tab PO DAILY 30 Days Atenolol (Atenolol) 50 Mg Tablet 50 Mg PO DAILY 30 Days take one daily in AM Azithromycin Tablet (Azithromycin) 250 Mg Tablet 250 Mg PO DAILY 7 Days Reported Multi Vitamin Daily (Multivitamin) 1 Each Tablet 1 Tab PO DAILY 30 Days Synthroid (Levothyroxine Sodium) 50 Mcg Tablet 1 Tab PO DAILY ALLERGIES Allergies: Coded Allergies: No Known Drug Allergies (Unverified , 10/20/19) ROS General: YES: Fatigue, Malaise Respiratory: YES: Shortness of breath, SOB with excertion, Sputum Changes PHYSICAL EXAM General: mild distress HEENT: Atraumatic Lungs: Other (decreased breath sounds) Heart: Regular rate Abdomen: Normal bowel sounds VITALS Vital Signs Vital Signs Date Time Temp Pulse Resp B/P (MAP) Pulse Ox O2 Delivery O2 Flow Rate FiO2 10/26/19 15:10 98.3 99 18 102/70 (81) 95 Nasal Cannula 2.0 LABS LABS Laboratory Tests Test 10/24/19 18:33 10/25/19 10:52 10/25/19 15:00 10/26/19 07:04 White Blood Count 9.3 x10^3/uL (4.0-11.0) 7.8 x10^3/uL (4.0-11.0) Red Blood Count 4.17 x10^6/uL (4.30-5.70) 4.12 x10^6/uL (4.30-5.70) Hemoglobin 13.7 g/dL (13.0-17.5) 13.3 g/dL (13.0-17.5) Hematocrit 39.8 % (39.0-53.0) 38.9 % (39.0-53.0) Mean Corpuscular Volume 95 fL (79-100) 95 fL (79-100) Mean Corpuscular Hemoglobin 33 pg (25-35) 32 pg (25-35) Mean Corpuscular Hemoglobin Concent 34 g/dL (31-37) 34 g/dL (31-37) Red Cell Distribution Width 13.8 % (11.5-14.5) 13.9 % (11.5-14.5) Platelet Count 498 x10^3/uL (140-400) 436 x10^3/uL (140-400) Neutrophils (%) (Auto) 83 % (31-73) Lymphocytes (%) (Auto) 3 % (24-48) Monocytes (%) (Auto) 13 % (0-9) Eosinophils (%) (Auto) 0 % (0-3) Basophils (%) (Auto) 1 % (0-3) Neutrophils # (Auto) 7.7 x10^3uL (1.8-7.7) Lymphocytes # (Auto) 0.3 x10^3/uL (1.0-4.8) Monocytes # (Auto) 1.2 x10^3/uL (0.0-1.1) Eosinophils # (Auto) 0.0 x10^3/uL (0.0-0.7) Basophils # (Auto) 0.1 x10^3/uL (0.0-0.2) Sodium Level 124 mmol/L (136-145) 127 mmol/L (136-145) 130 mmol/L (136-145) Potassium Level 4.2 mmol/L (3.5-5.1) 3.4 mmol/L (3.5-5.1) 3.1 mmol/L (3.5-5.1) Chloride Level 84 mmol/L (98-107) 87 mmol/L (98-107) 88 mmol/L (98-107) Carbon Dioxide Level 32 mmol/L (21-32) 33 mmol/L (21-32) 35 mmol/L (21-32) Anion Gap 8 (6-14) 7 (6-14) 7 (6-14) Blood Urea Nitrogen 6 mg/dL (8-26) 6 mg/dL (8-26) 6 mg/dL (8-26) Creatinine 0.5 mg/dL (0.7-1.3) 0.4 mg/dL (0.7-1.3) 0.6 mg/dL (0.7-1.3) Estimated GFR (Cockcroft-Gault) 170.2 220.2 137.9 BUN/Creatinine Ratio 12 (6-20) Glucose Level 107 mg/dL (70-99) 110 mg/dL (70-99) 104 mg/dL (70-99) Calcium Level 8.7 mg/dL (8.5-10.1) 8.2 mg/dL (8.5-10.1) 8.6 mg/dL (8.5-10.1) Total Bilirubin 0.9 mg/dL (0.2-1.0) Aspartate Amino Transf (AST/SGOT) 26 U/L (15-37) Alanine Aminotransferase (ALT/SGPT) 27 U/L (16-63) Alkaline Phosphatase 199 U/L (46-116) Troponin I Quantitative < 0.017 ng/mL (0-0.055) GS-Ebm-L-Type Natriuretic Peptide 1636 pg/mL (0-124) Total Protein 7.2 g/dL (6.4-8.2) Albumin 2.4 g/dL (3.4-5.0) Albumin/Globulin Ratio 0.5 (1.0-1.7) Urine Collection Type Void Urine Color Yellow Urine Clarity Clear Urine pH 7.0 Urine Specific [place] 1.015 Urine Protein Neg (NEG-TRACE) Urine Glucose (UA) Neg mg/dL (NEG) Urine Ketones (Stick) 80 mg/dL (NEG) Urine Blood Neg (NEG) Urine Nitrite Neg (NEG) Urine Bilirubin Neg (NEG) Urine Urobilinogen Dipstick 0.2 mg/dL (0.2 mg/dL) Urine Leukocyte Esterase Neg (NEG) Urine RBC 1-2 /HPF (0-2) Urine WBC 1-4 /HPF (0-4) Urine Squamous Epithelial Cells Few /LPF Urine Bacteria 0 /HPF (0-FEW) Urine Mucus Slight /LPF EKG EKG EKG shows a sinus rhythm with no acute ischemic changes. ECHOCARDIOGRAM Echocardiogram Pending ASSESSMENT/PLAN Assessment/Plan 1. Shortness of breath in the setting of a patient with lung cancer. He is status post a right upper lobectomy and has been on chemotherapy. Antibiotics have been started. Pulmonary treatments have been continued. Evaluation by the patient's oncologist as above. 2. Probable diastolic heart failure. BNP of 1600. No acute ischemic EKG changes. We'll mildly diuresis and monitor lab. 3. Exacerbation of COPD as above. This is in the setting of a patient with lung cancer. Continue treatment. 4. Possible significant aortic stenosis. Patient reports a history of aortic stenosis but we have no records. We'll check an echocardiogram for evaluation. Thank you for allowing us to participate in the care of your patient. ARA LEHMAN MD Oct 26, 2019 16:51
[2019-10-26 19:48] VITALS: BP_SYST 11; BP_SYST 111; BP_DIAS 74
[2019-10-26] MEDS: POTASSIUM CHLORIDE 20 MEQ TABLET.ER. PO SCH (20:43)
[2019-10-26] MEDS: LACTOBACILLUS RHAMNOSUS GG 1 CAPSULE. PO SCH (20:43)
--- NOTE | 2019-10-26 22:40 | PN ---
DATE: 10/26/2019 PROGRESS NOTE SUBJECTIVE: The patient is sitting at the edge of the bed comfortably in no apparent distress. He is feeling generally much improved and less short of breath. OBJECTIVE: GENERAL: When I saw him this afternoon, he looked well and was clearly in no apparent respiratory distress. No pallor, jaundice, cyanosis or thyromegaly. No jugular venous distention. No limb edema. VITAL SIGNS: His heart rate was 95, blood pressure was 108/74, temperature was 97.5, respiratory rate was 18 and oxygen saturation was 98% on 1 liter of oxygen. HEAD, EYES, EARS, NOSE, AND THROAT: Showed normocephalic, atraumatic. NECK: Supple. HEART: Showed normal first and second heart sounds with no gallop, rub, or murmur. CHEST: Showed central trachea, equal bilateral chest expansion, air entry, vesicular breath sounds with dull percussion noted and absent breath sounds on the right side posteriorly. I did not appreciate any wheezing or rhonchi. ABDOMEN: His abdomen was scaphoid, soft, nontender. No guarding or rigidity. No organomegaly. All hernial orifices intact. Bowel sounds normal. NEUROLOGIC: He is awake, alert, responding appropriately. All cranial nerves are intact. He moves extremities without difficulty. He ambulates without assistance or assistive devices. His intake over the last 24 hours was 1100, output was 450. LABORATORY DATA: His lab work this morning showed a white cell count of 7800, hemoglobin was 13, hematocrit 39, MCV 95, and platelet count 436,000. His chemistry showed a serum sodium 130, potassium 3.1, chloride 88, bicarbonate 35, anion gap of 7, BUN 6, creatinine 0.6, estimated GFR was 137 mL per minute, his glucose 104, and calcium was 8.6. ASSESSMENT: 1. Acute on chronic diastolic congestive heart failure, improving. 2. Moderate to severe aortic stenosis. 3. Chronic obstructive pulmonary disease. 4. Lung cancer, status post right upper lobectomy, status post chemotherapy every 2 weeks, although he has not had any chemotherapy for the last 4 weeks. 5. Probably community-acquired pneumonia. 6. Parotid cancer, status post resection. 7. Hypokalemia. PLAN: My plan is to continue with IV Lasix. Continue with IV ceftriaxone and oral Zithromax. Continue with all his other medications. We have consulted the cardiology team to assist with his management. GIL KELLY MD DR: NED/janet JOB#: [id number] / [id number]
[2019-10-26 23:33] VITALS: BP 105/70
[2019-10-27 05:45] VITALS: BP 110/70
[2019-10-27] MEDS: LEVOTHYROXINE 50 MCG TABLET PO SCH (05:50)
[2019-10-27 06:28] LABS: BASO # 0.1 x10^3/uL (0.0-0.2); BASO % 1 % (0-3); EOS % 0 % (0-3); HEMATOCRIT 41.3 % (39.0-53.0); HEMOGLOBIN 14.3 g/dL (13.0-17.5); LYMPH # 0.4 x10^3/uL (1.0-4.8); LYMPH % 4 % (24-48); MEAN CORPUSCULAR HEMOGLOBIN 32 pg (25-35); MEAN CORPUSCULAR HGB CONC 35 g/dL (31-37); MEAN CORPUSCULAR VOLUME 94 fL (79-100); MONO # 1.3 x10^3/uL (0.0-1.1); MONO % 14 % (0-9); NEUT # 7.6 x10^3uL (1.8-7.7); NEUT % 81 % (31-73); PLATELET COUNT 430 x10^3/uL (140-400); RED BLOOD COUNT 4.39 x10^6/uL (4.30-5.70); RED CELL DISTRIBUTION WIDTH 13.6 % (11.5-14.5); WHITE BLOOD COUNT 9.5 x10^3/uL (4.0-11.0)
[2019-10-27 06:30] LABS: CALCIUM 8.6 mg/dL (8.5-10.1); CREATININE 0.4 mg/dL (0.7-1.3); GFR 220.2; POTASSIUM 3.7 mmol/L (3.5-5.1)
[2019-10-27] MEDS: POTASSIUM CHLORIDE 20 MEQ TABLET.ER. PO SCH ×3 (07:52→21:09)
[2019-10-27] MEDS: ATENOLOL 50 MG TABLET PO SCH (07:52)
[2019-10-27] MEDS: MULTIVITAMIN with MINERAL TABLET. PO SCH (07:53)
[2019-10-27] MEDS: LACTOBACILLUS RHAMNOSUS GG 1 CAPSULE. PO SCH ×2 (07:53→21:09)
[2019-10-27] MEDS: FUROSEMIDE 40 MG/4 ML VIAL IVP SCH (07:53)
--- NOTE | 2019-10-27 08:08 | PDOC ---
SINDY ADAMS WATER REGULATOR AND VALVE REPAIRER 10/27/19 0807: CARDIO Progress Notes Date & Time Date of Service DATE: 10/27/19 TIME: 07:58 Time of Evaluation 07:58 Subjective Notes breathing at rest better, but TAVERA persists Vitals Vitals Vital Signs Date Time Temp Pulse Resp B/P (MAP) Pulse Ox O2 Delivery O2 Flow Rate FiO2 10/27/19 07:52 91 110/70 10/27/19 05:45 98.1 18 93 Room Air 10/26/19 15:10 2.0 Weight Weight [ ] Input and Output I.O. Intake and Output 10/27/19 06:59 Intake Total 1850 ml Output Total 2125 ml Balance -275 ml Intake Oral 1800 ml IV Total 50 ml Output Urine Total 2125 ml Laboratory Labs Laboratory Tests Test 10/25/19 10:52 10/25/19 15:00 10/26/19 07:04 10/27/19 05:58 Urine Collection Type Void Urine Color Yellow Urine Clarity Clear Urine pH 7.0 Urine Specific [place] 1.015 Urine Protein Neg (NEG-TRACE) Urine Glucose (UA) Neg mg/dL (NEG) Urine Ketones (Stick) 80 mg/dL (NEG) Urine Blood Neg (NEG) Urine Nitrite Neg (NEG) Urine Bilirubin Neg (NEG) Urine Urobilinogen Dipstick 0.2 mg/dL (0.2 mg/dL) Urine Leukocyte Esterase Neg (NEG) Urine RBC 1-2 /HPF (0-2) Urine WBC 1-4 /HPF (0-4) Urine Squamous Epithelial Cells Few /LPF Urine Bacteria 0 /HPF (0-FEW) Urine Mucus Slight /LPF Sodium Level 127 mmol/L (136-145) 130 mmol/L (136-145) 127 mmol/L (136-145) Potassium Level 3.4 mmol/L (3.5-5.1) 3.1 mmol/L (3.5-5.1) 3.7 mmol/L (3.5-5.1) Chloride Level 87 mmol/L (98-107) 88 mmol/L (98-107) 87 mmol/L (98-107) Carbon Dioxide Level 33 mmol/L (21-32) 35 mmol/L (21-32) 30 mmol/L (21-32) Anion Gap 7 (6-14) 7 (6-14) 10 (6-14) Blood Urea Nitrogen 6 mg/dL (8-26) 6 mg/dL (8-26) 6 mg/dL (8-26) Creatinine 0.4 mg/dL (0.7-1.3) 0.6 mg/dL (0.7-1.3) 0.4 mg/dL (0.7-1.3) Estimated GFR (Cockcroft-Gault) 220.2 137.9 220.2 Glucose Level 110 mg/dL (70-99) 104 mg/dL (70-99) 98 mg/dL (70-99) Calcium Level 8.2 mg/dL (8.5-10.1) 8.6 mg/dL (8.5-10.1) 8.6 mg/dL (8.5-10.1) White Blood Count 7.8 x10^3/uL (4.0-11.0) 9.5 x10^3/uL (4.0-11.0) Red Blood Count 4.12 x10^6/uL (4.30-5.70) 4.39 x10^6/uL (4.30-5.70) Hemoglobin 13.3 g/dL (13.0-17.5) 14.3 g/dL (13.0-17.5) Hematocrit 38.9 % (39.0-53.0) 41.3 % (39.0-53.0) Mean Corpuscular Volume 95 fL (79-100) 94 fL (79-100) Mean Corpuscular Hemoglobin 32 pg (25-35) 32 pg (25-35) Mean Corpuscular Hemoglobin Concent 34 g/dL (31-37) 35 g/dL (31-37) Red Cell Distribution Width 13.9 % (11.5-14.5) 13.6 % (11.5-14.5) Platelet Count 436 x10^3/uL (140-400) 430 x10^3/uL (140-400) Neutrophils (%) (Auto) 81 % (31-73) Lymphocytes (%) (Auto) 4 % (24-48) Monocytes (%) (Auto) 14 % (0-9) Eosinophils (%) (Auto) 0 % (0-3) Basophils (%) (Auto) 1 % (0-3) Neutrophils # (Auto) 7.6 x10^3uL (1.8-7.7) Lymphocytes # (Auto) 0.4 x10^3/uL (1.0-4.8) Monocytes # (Auto) 1.3 x10^3/uL (0.0-1.1) Eosinophils # (Auto) 0.0 x10^3/uL (0.0-0.7) Basophils # (Auto) 0.1 x10^3/uL (0.0-0.2) Physical Exams HEENT: Neck Supple W Full Motion Chest: Symmetric Lungs: Other (diminished throughout ) Heart: S1S2, RRR, murmurs (3/6 systolic murmur ) Abdomen: Soft N/T Extremities: No Edema Neurology: alert, oriented, follow commands Assessment Assessment 1. Acute on chronic respiratory failure; multifactorial. improved, but TAVERA per sists. 2. Mild acute on chronic diastolic CHF; recent echo with preserved LV systolic function. S/p diuresis. Appears compensated from a HF standpoint 3. Moderate-severe per recent echo 4. COPD; ex-smoker 5. Lung CA; s/p right upper lobectomy. Most recently, has been receiving chemotherapy q 2 weeks since January. 6. Hyponatremia Recommendations Discontinue IV Lasix Patient would like conservative management for Supportive care from a CV standpoint. TREASURE CREWS MD 10/30/19 1000: CARDIO Progress Notes Plan Plan Late entry for 10/27/2019 Pt. seen and examined. Agree with above MOTION PICTURE SET UP WORKER note. ANGIESINDY SHANTA Oct 27, 2019 08:07 TREASURE CREWS MD Oct 30, 2019 10:00
[2019-10-27 10:30] VITALS: BP 112/75
[2019-10-27 14:16] VITALS: BP 98/72
[2019-10-27] MEDS: ENOXAPARIN 40 MG/0.4 ML SYRINGE. SQ SCH (16:46)
[2019-10-27 18:58] VITALS: BP 104/71
--- NOTE | 2019-10-27 22:27 | PN ---
DATE: 10/27/2019 SUBJECTIVE: The patient is sitting slightly propped up in bed, in no apparent distress. He continues to be extremely weak, very debilitated and deconditioned and he walks to the bathroom with difficulty. He lives alone and probably needs to be admitted in a halfway facility for further rehabilitation. He was seen by the lawn sprinkler installer this morning and his Lasix was discontinued. PHYSICAL EXAMINATION: GENERAL: When I examined him, he was somewhat pale. There was no pallor, jaundice, cyanosis or thyromegaly. No jugular venous distention. No limb edema. VITAL SIGNS: Heart rate was 83, blood pressure was 112/75, temperature was 98.1, respiratory rate was 18 and oxygen saturation was 96%. HEAD, EYES, EARS, NOSE AND THROAT: Normocephalic, atraumatic. NECK: Supple. HEART: Showed normal first and second heart sounds. No gallop or murmur. CHEST: Clear to auscultation. No crepitation or rhonchi. ABDOMEN: Distended, soft, nontender. NEUROLOGIC: He was awake, alert, responding appropriately. All cranial nerves are intact. He moves extremities with difficulty, he has marked muscle weakness and wasting. His intake over the last 24 hours was 1700, output was 2250. LABORATORY DATA: As of this morning, his white cell count was 9500, hemoglobin 14, hematocrit 41, MCV 94 and platelet count of 430,000. Serum sodium was 127, potassium 3.7, chloride 87, bicarbonate 30, anion gap of 10, BUN 6, creatinine 0.4, estimated GFR was 220 mL per minute, his glucose was 98, calcium was 8.6. ASSESSMENT: 1. Acute on chronic diastolic congestive heart failure, improving. 2. Moderate to severe aortic stenosis. 3. Chronic obstructive pulmonary disease. 4. Lung cancer, status post right upper lobectomy, status post chemotherapy every 2 weeks, although he has not had any chemotherapy for the last 4 weeks. 5. Probable community-acquired pneumonia. 6. Parotid cancer, status post resection. 7. Hypokalemia that has resolved. His potassium is 3.7. PLAN: My plan is to continue with his current medication and await the evaluation by the cardiology team to see whether he is a candidate for any surgical intervention for his aortic valve stenosis. GIL KELLY MD DR: Donal JOB#: [id number] / [id number]
[2019-10-27 23:50] VITALS: BP 116/85
[2019-10-28] MEDS: ACETAMINOPHEN 325 MG TABLET PO PRN ×2 (03:19→20:33)
[2019-10-28 03:37] VITALS: BP 106/76
[2019-10-28] MEDS: LEVOTHYROXINE 50 MCG TABLET PO SCH (05:00)
[2019-10-28 05:07] VITALS: BP 105/74
[2019-10-28 06:46] LABS: CALCIUM 8.7 mg/dL (8.5-10.1); CREATININE 0.5 mg/dL (0.7-1.3); GFR 170.2; POTASSIUM 4.2 mmol/L (3.5-5.1)
[2019-10-28] MEDS: LACTOBACILLUS RHAMNOSUS GG 1 CAPSULE. PO SCH ×2 (08:09→20:33)
[2019-10-28] MEDS: MULTIVITAMIN with MINERAL TABLET. PO SCH (08:09)
[2019-10-28] MEDS: POTASSIUM CHLORIDE 20 MEQ TABLET.ER. PO SCH ×3 (08:09→20:33)
[2019-10-28] MEDS: ATENOLOL 50 MG TABLET PO SCH (08:09)
[2019-10-28 11:55] VITALS: BP 91/63
[2019-10-28] MEDS: ENOXAPARIN 40 MG/0.4 ML SYRINGE. SQ SCH (14:54)
[2019-10-28 15:31] VITALS: BP 105/72
[2019-10-28 19:45] VITALS: BP 114/70
[2019-10-28 22:36] VITALS: BP 107/73
--- NOTE | 2019-10-29 01:58 | PN ---
DATE: 10/28/2019 PROGRESS NOTE SUBJECTIVE: The patient is resting, slightly propped up in bed, in no apparent distress. He did better today. He actually walks with a walker for a short distance within the room twice and walked to the bathroom also once and generally feeling a little bit better, although his oxygen saturation desaturates dramatically with any movement. PHYSICAL EXAMINATION: GENERAL: When I saw him this afternoon, he looked somewhat pale, but no jaundice, cyanosis or thyromegaly. No jugular venous distension. No lower limb edema. VITAL SIGNS: His heart rate was 92, blood pressure was 105/72, temperature of 98.2, respiratory rate was 18, and oxygen saturation 100% on 2 liters of oxygen. HEAD, EYES, EARS, NOSE, AND THROAT: Showed normocephalic, atraumatic. NECK: Supple. CARDIAC: Normal first and second heart sounds. No gallop or murmur. CHEST: Clear to auscultation. No crepitation or rhonchi. ABDOMEN: Distended, soft, and nontender. NEUROLOGIC: He is grossly intact. His intake over the last 24 hours was 1850, output was 2125. LABORATORY DATA: Hemoglobin 14, hematocrit 41 with normal white cell count and platelets. His chemistry showed sodium down to 125, potassium 4.2, chloride 87, bicarbonate 29, anion gap of 9, BUN 9, creatinine 0.5, estimated GFR was 170 mL per minute, his glucose 120, and calcium 0.7. ASSESSMENT: 1. Acute on chronic diastolic congestive heart failure, improving. 2. Moderate or severe aortic stenosis. 3. Chronic obstructive pulmonary disease. 4. Lung cancer, status post right upper lobectomy, status post chemotherapy every 2 weeks, although has not had any chemotherapy for the last 4 weeks. 5. Probable community-acquired pneumonia. 6. Prostate cancer, status post resection. 7. Hypokalemia, resolved. Potassium is much improved now to be within normal range. 8. Chronic hyponatremia. 9. Marked debility and decondition. PLAN: Plan is to continue with the current medication. Continue with occupational therapy. He was seen by the obstetrics scrub nurse yesterday and is not interested in any intervention regarding his aortic valve stenosis. We are waiting to find placement in a [facility] facility. GIL KELLY MD DR: Donal JOB#: [id number] / [id number]
[2019-10-29 05:56] VITALS: BP 115/61
[2019-10-29] MEDS: LEVOTHYROXINE 50 MCG TABLET PO SCH (06:28)
[2019-10-29 07:35] LABS: CALCIUM 8.9 mg/dL (8.5-10.1); CREATININE 0.6 mg/dL (0.7-1.3); GFR 137.9; POTASSIUM 4.2 mmol/L (3.5-5.1)
[2019-10-29] MEDS: LACTOBACILLUS RHAMNOSUS GG 1 CAPSULE. PO SCH ×2 (07:43→19:53)
[2019-10-29] MEDS: MULTIVITAMIN with MINERAL TABLET. PO SCH (07:43)
[2019-10-29] MEDS: POTASSIUM CHLORIDE 20 MEQ TABLET.ER. PO SCH ×3 (07:43→19:53)
[2019-10-29] MEDS: ATENOLOL 50 MG TABLET PO SCH (07:43)
[2019-10-29] MEDS: ACETAMINOPHEN 325 MG TABLET PO PRN ×2 (07:43→19:53)
[2019-10-29 10:49] VITALS: BP 102/70
[2019-10-29 15:04] VITALS: BP 111/75
[2019-10-29] MEDS: ENOXAPARIN 40 MG/0.4 ML SYRINGE. SQ SCH (15:35)
[2019-10-29 19:38] VITALS: BP 102/67
--- NOTE | 2019-10-29 21:32 | PN ---
DATE: 10/29/2019 SUBJECTIVE: The patient is resting, slightly propped up in bed, in no apparent distress. On questioning him, he denied any complaint. He has been up and about, walked twice. Continue to complain of shortness of breath and his oxygen desaturates with exertion. He is still too weak to take care of himself and we are working to get him placed in a [facility] facility to continue the process of physical and occupational therapy. PHYSICAL EXAMINATION: GENERAL: When I examined him today, he looked well and was clearly in no apparent respiratory distress. No pallor, jaundice, cyanosis or thyromegaly. No jugular venous distention. No limb edema. VITAL SIGNS: His heart rate was 76, blood pressure was 102/70, temperature 97.6, respiratory rate 24 and oxygen saturation 100% on 1 liter of oxygen. The rest of clinical examination is stable, has not really changed. ASSESSMENT: 1. Acute on chronic diastolic congestive heart failure, improving. 2. Moderate to severe aortic stenosis. 3. Chronic obstructive pulmonary disease. 4. Lung cancer, status post right upper lobectomy, status post chemotherapy every 2 weeks, although he has not had any chemotherapy for the last 4 weeks. 5. Probable community-acquired pneumonia. 6. Prostate cancer, status post resection. 7. Actually parotid gland cancer, status post resection. 8. Hypokalemia, resolved, status much improved now within normal range. 9. Chronic hyponatremia. 10. Marked debility, deconditioning and muscle weakness and wasting. PLAN: To continue with current medication. Continue with the physical and occupational therapy. The patient is not interested in intervention regarding his aortic valve stenosis. Hopefully, we are hoping to place him tomorrow in a [facility] facility. GIL KELLY MD DR: NED/janet JOB#: [id number] / [id number]
[2019-10-29 22:50] VITALS: BP 103/74
[2019-10-30 05:21] VITALS: BP 112/76
[2019-10-30] MEDS: LEVOTHYROXINE 50 MCG TABLET PO SCH (06:31)
[2019-10-30] MEDS: POTASSIUM CHLORIDE 20 MEQ TABLET.ER. PO SCH ×3 (07:43→19:43)
[2019-10-30] MEDS: LACTOBACILLUS RHAMNOSUS GG 1 CAPSULE. PO SCH ×2 (07:43→19:43)
[2019-10-30] MEDS: ACETAMINOPHEN 325 MG TABLET PO PRN (07:43)
[2019-10-30] MEDS: MULTIVITAMIN with MINERAL TABLET. PO SCH (07:43)
[2019-10-30] MEDS: ATENOLOL 50 MG TABLET PO SCH (07:44)
[2019-10-30 11:07] VITALS: BP 96/67
[2019-10-30 14:56] VITALS: BP 99/66
[2019-10-30] MEDS: ENOXAPARIN 40 MG/0.4 ML SYRINGE. SQ SCH (15:30)
[2019-10-30 19:44] VITALS: BP 127/81
[2019-10-30 22:21] VITALS: BP 112/75
--- NOTE | 2019-10-30 23:20 | PN ---
DATE: 10/30/2019 SUBJECTIVE: The patient is sitting at the edge of the bed comfortably, in no apparent distress. Apparently, has still continued to complain of weakness and easy fatigability. However, he did manage to walk with physical therapy and walked to the bathroom. He apparently was accepted at [facility], but the [facility] has not approved his admission there. When I examined him this afternoon, he looked well and was clearly in no apparent distress. Vital signs are stable. Clinical exam is stable. LABORATORY DATA: As of yesterday, continued to show chronic hyponatremia. Otherwise, his BUN and creatinine are within normal range. PLAN: My plan is to repeat his lab work tomorrow. Continue with all his medication. Continue with physical and occupational therapy and await the approval of the for him to go to [facility]. GIL KELLY MD DR: NED/janet JOB#: [id number] / [id number]
[2019-10-31 05:22] VITALS: BP 106/76
[2019-10-31] MEDS: LEVOTHYROXINE 50 MCG TABLET PO SCH (06:00)
[2019-10-31] MEDS: POTASSIUM CHLORIDE 20 MEQ TABLET.ER. PO SCH ×3 (07:50→19:54)
[2019-10-31] MEDS: LACTOBACILLUS RHAMNOSUS GG 1 CAPSULE. PO SCH ×2 (07:50→19:53)
[2019-10-31] MEDS: ATENOLOL 50 MG TABLET PO SCH (07:50)
[2019-10-31] MEDS: MULTIVITAMIN with MINERAL TABLET. PO SCH (07:50)
[2019-10-31 09:51] LABS: CALCIUM 9.1 mg/dL (8.5-10.1); CREATININE 0.6 mg/dL (0.7-1.3); GFR 137.9; POTASSIUM 4.6 mmol/L (3.5-5.1)
[2019-10-31 10:49] VITALS: BP 102/70
[2019-10-31 14:53] VITALS: BP 108/72
[2019-10-31] MEDS: ENOXAPARIN 40 MG/0.4 ML SYRINGE. SQ SCH (16:47)
[2019-10-31 19:33] VITALS: BP 112/74
[2019-10-31] MEDS: ACETAMINOPHEN 325 MG TABLET PO PRN (19:53)
[2019-10-31] MEDS: CEFDINIR 300 MG CAPSULE PO SCH (19:53)
[2019-10-31 22:50] VITALS: BP 107/71
--- NOTE | 2019-10-31 22:56 | PN ---
DATE: 10/31/2019 SUBJECTIVE: The patient is sitting at the edge of the bed comfortably in no apparent distress. On questioning him, he denied any chest pain or shortness of breath, continued to complain of generalized weakness and easy fatigability. He did, however, work with physical therapy, was still waiting for placement to a senior living facility. PHYSICAL EXAMINATION: GENERAL: When I examined him, he looked well and was clearly in no apparent respiratory distress. No pallor, jaundice, cyanosis, lymphadenopathy, or thyromegaly. No jugular venous distention. No limb edema. VITAL SIGNS: His heart rate was 84, blood pressure was 108/72 with temperature of 98.1, respiratory rate was 20, and oxygen saturation was 98% on 1 liter of oxygen. HEAD, EYES, EARS, NOSE AND THROAT: Showed normocephalic, atraumatic. NECK: Supple. HEART: Showed normal first and second heart sounds. No gallop or murmur. CHEST: Clear to auscultation. No crepitation or rhonchi. ABDOMEN: Distended, soft, nontender. No guarding or rigidity. No organomegaly. All hernial orifices intact. Bowel sounds normal. NEUROLOGIC: He is awake, alert, responding appropriately. All cranial nerves intact. He moves extremities without difficulty. He has muscle weakness and wasting. His body mass index only 20 kilograms square meter. His intake over the last 24 hours was 1380, output 750. LABORATORY DATA: His lab work this morning showed a serum sodium continued to be low at 125, potassium 4.6, chloride 86, bicarbonate 32, anion gap of 7, BUN 5, creatinine 0.6, estimated GFR was 137 mL per minute, his glucose 114, calcium 9.1. ASSESSMENT: 1. Acute on chronic diastolic congestive heart failure, improving. 2. Moderate to severe aortic stenosis. 3. Chronic obstructive pulmonary disease. 4. Lung cancer, status post right upper lobectomy, status post chemotherapy every 2 weeks, although the patient has not been able to do any chemotherapy for the last 4 weeks. 5. Probable community-acquired pneumonia. 6. Prostate cancer, status post resection. 7. Parotid gland cancer, status post resection. 8. Hypokalemia, much improved, within normal range. 9. Chronic hyponatremia. 10. Marked debility, deconditioning and muscle weakness and wasting. PLAN: Continue with current plan of medication. Continue with physical and occupational therapy. Await placement in a senior living facility. GIL KELLY MD DR: NED/janet JOB#: [id number] / [id number]
--- NOTE | 2019-10-31 23:32 | PN ---
DATE: 10/31/2019 SUBJECTIVE: The patient is sitting on edge of the bed comfortably in no apparent distress, continued to complain of being weak and tired; however, he works with physical therapy, who was stating still waiting for placement. Dictation Ends Here. GIL KELLY MD DR: NED/janet JOB#: [id number] / [id number]
[2019-11-01] MEDS: LEVOTHYROXINE 50 MCG TABLET PO SCH (05:11)
[2019-11-01 05:38] VITALS: BP 111/72
[2019-11-01] MEDS: MULTIVITAMIN with MINERAL TABLET. PO SCH (09:00)
[2019-11-01] MEDS: ATENOLOL 50 MG TABLET PO SCH (09:13)
[2019-11-01] MEDS: LACTOBACILLUS RHAMNOSUS GG 1 CAPSULE. PO SCH ×2 (09:13→20:29)
[2019-11-01] MEDS: POTASSIUM CHLORIDE 20 MEQ TABLET.ER. PO SCH ×3 (09:14→20:29)
[2019-11-01] MEDS: CEFDINIR 300 MG CAPSULE PO SCH ×2 (09:14→20:29)
[2019-11-01 11:12] VITALS: BP 98/67
[2019-11-01 15:03] VITALS: BP 109/78
[2019-11-01] MEDS: ENOXAPARIN 40 MG/0.4 ML SYRINGE. SQ SCH (15:09)
[2019-11-01 19:21] VITALS: BP 100/66
[2019-11-01] MEDS: ACETAMINOPHEN 325 MG TABLET PO PRN (20:30)
[2019-11-01 22:39] VITALS: BP 99/66
--- NOTE | 2019-11-02 01:53 | PN ---
DATE: 11/01/2019 SUBJECTIVE: The patient is sitting at the edge of the bed comfortably in no apparent distress, continued to remain being very weak and easily fatigued, but continued to attempts to walk with a walker. Denied any other complaints. When I examined him, he looked well and was clearly in no apparent distress. His vital signs are stable. LABORATORY DATA: He continued to have chronic hyponatremia with a serum sodium of 125; however, his BUN and creatinine are normal. PLAN: To continue with current plan of management, await placement as he was accepted at [facility]. GIL KELLY MD DR: NED/janet JOB#: [id number] / [id number]
[2019-11-02 05:29] VITALS: BP 111/75
[2019-11-02] MEDS: LEVOTHYROXINE 50 MCG TABLET PO SCH (05:30)
[2019-11-02 08:04] LABS: CALCIUM 8.8 mg/dL (8.5-10.1); CREATININE 0.4 mg/dL (0.7-1.3); GFR 220.2; POTASSIUM 4.3 mmol/L (3.5-5.1)
[2019-11-02] MEDS: MULTIVITAMIN with MINERAL TABLET. PO SCH (08:10)
[2019-11-02] MEDS: POTASSIUM CHLORIDE 20 MEQ TABLET.ER. PO SCH ×3 (08:10→21:06)
[2019-11-02] MEDS: CEFDINIR 300 MG CAPSULE PO SCH ×2 (08:10→21:06)
[2019-11-02] MEDS: LACTOBACILLUS RHAMNOSUS GG 1 CAPSULE. PO SCH ×2 (08:10→21:06)
[2019-11-02] MEDS: ATENOLOL 50 MG TABLET PO SCH (08:11)
[2019-11-02 11:07] VITALS: BP 90/65
[2019-11-02 15:15] VITALS: BP 93/64
[2019-11-02] MEDS: ENOXAPARIN 40 MG/0.4 ML SYRINGE. SQ SCH (16:14)
--- NOTE | 2019-11-02 16:49 | PN ---
DATE: 11/02/2019 SUBJECTIVE: The patient is sitting on the edge of the bed comfortably in no apparent distress, continued to obviously have weakness, debility. He is obviously attempting to walk with the walker with physical therapist, although they are not here today. [facility]; however, we are waiting for the approval by the [facility]. On examining him today, he looked well and was clearly in no apparent respiratory distress. His vital signs are stable. He continued to have a low sodium of 126, although his BUN and creatinine are normal. PLAN: The plan is obviously to continue with all his current medication. Continue physical and occupational therapy. Await the placement at healthcare resort. GIL KELLY MD DR: NED/janet JOB#: [id number] / [id number]
[2019-11-02 19:35] VITALS: BP 109/75
[2019-11-02 23:00] VITALS: BP 111/76
[2019-11-03 05:24] VITALS: BP 110/75
[2019-11-03] MEDS: LEVOTHYROXINE 50 MCG TABLET PO SCH (05:51)
[2019-11-03] MEDS: MULTIVITAMIN with MINERAL TABLET. PO SCH (09:09)
[2019-11-03] MEDS: LACTOBACILLUS RHAMNOSUS GG 1 CAPSULE. PO SCH ×2 (09:09→20:47)
[2019-11-03] MEDS: CEFDINIR 300 MG CAPSULE PO SCH ×2 (09:09→20:46)
[2019-11-03] MEDS: ATENOLOL 50 MG TABLET PO SCH (09:09)
[2019-11-03] MEDS: POTASSIUM CHLORIDE 20 MEQ TABLET.ER. PO SCH ×3 (09:10→20:47)
[2019-11-03 11:42] VITALS: BP 139/82
[2019-11-03 15:29] VITALS: BP 116/75
[2019-11-03] MEDS: ENOXAPARIN 40 MG/0.4 ML SYRINGE. SQ SCH (16:13)
[2019-11-03 19:41] VITALS: BP 97/65
[2019-11-03] MEDS: ACETAMINOPHEN 325 MG TABLET PO PRN (20:46)
--- NOTE | 2019-11-03 22:34 | PN ---
DATE: SUBJECTIVE: The patient is resting, slightly propped up in bed, in no apparent respiratory distress. He continued to complain of weakness. He is attempting, doing his best to participate with physical therapy, has been walking with a walker. PHYSICAL EXAMINATION: GENERAL: When I examined him, he looked well and was clearly in no apparent respiratory distress. HEENT: No pallor, jaundice, cyanosis or thyromegaly. No jugular venous distension. No lower limb edema. VITAL SIGNS: Her heart rate was 99, blood pressure was 139/82, temperature 97.4, respiratory rate 22 and oxygen saturation was 97% on 1 liter oxygen. The rest of clinical exam is stable, has not really changed. LABORATORY DATA: His chemistry showed serum sodium of 126, potassium 4.3, chloride 90, bicarbonate 29, anion gap of 7, BUN 5, creatinine 0.4, glucose 106 and calcium was 8.8. ASSESSMENT: 1. Acute on chronic diastolic congestive heart failure, improving. 2. Moderate to severe aortic stenosis. 3. Chronic obstructive pulmonary disease. 4. Lung cancer, status post right upper lobectomy, status post chemotherapy every 2 weeks, although the patient has been too weak to be able to do any chemotherapy for the last 5 weeks. 5. Probable community-acquired pneumonia. 6. Parotid gland cancer, status post resection. 7. Hypokalemia, much improved. 8. Chronic hyponatremia. 9. Marked debility, deconditioning and muscle weakness and wasting. PLAN: Continue with pain medication. Continue with physical and occupational therapy. Await placement in retirement facility. GIL KELLY MD DR: NED/janet JOB#: [id number] / [id number]
[2019-11-03 23:31] VITALS: BP 95/64
[2019-11-04] MEDS: LEVOTHYROXINE 50 MCG TABLET PO SCH (05:02)
[2019-11-04 05:42] VITALS: BP 103/68
[2019-11-04] MEDS: CEFDINIR 300 MG CAPSULE PO SCH ×2 (08:34→20:00)
[2019-11-04] MEDS: LACTOBACILLUS RHAMNOSUS GG 1 CAPSULE. PO SCH ×2 (08:34→20:00)
[2019-11-04] MEDS: MULTIVITAMIN with MINERAL TABLET. PO SCH (08:35)
[2019-11-04] MEDS: ATENOLOL 50 MG TABLET PO SCH (08:35)
[2019-11-04] MEDS: POTASSIUM CHLORIDE 20 MEQ TABLET.ER. PO SCH ×3 (08:35→20:01)
[2019-11-04 11:09] VITALS: BP 103/70
[2019-11-04 15:24] VITALS: BP 101/69
[2019-11-04] MEDS: ENOXAPARIN 40 MG/0.4 ML SYRINGE. SQ SCH (16:17)
[2019-11-04 19:51] VITALS: BP 94/63
[2019-11-04] MEDS: ACETAMINOPHEN 325 MG TABLET PO PRN (20:01)
--- NOTE | 2019-11-04 22:24 | PN ---
DATE: 11/04/2019 PROGRESS NOTE SUBJECTIVE: The patient is sitting on the edge of bed, no apparent distress. He is obviously did walk with physical therapy with assistance. Continue to be generally weak. We are still waiting for him to be placed in a penitentiary facility or rehab center. Apparently, [facility] for the [facility] by the [facility]. On questioning him today, he denied any other complaint. OBJECTIVE: GENERAL: When I examined him, there was no pallor, jaundice, cyanosis, or thyromegaly. No jugular venous distention. When I examined him, he looked well. VITAL SIGNS: His heart rate was 89, blood pressure was 101/69, temperature 97.5, respiratory rate was 20, and oxygen saturation 100%. The rest of clinical exam is stable. ASSESSMENT: 1. Acute on chronic diastolic congestive heart failure, improving. 2. Moderate to severe aortic stenosis. 3. Chronic obstructive pulmonary disease. 4. Lung cancer, status post right upper lobectomy, status post chemotherapy every 2 weeks. The patient has been too weak to be able to do any chemotherapy for the last 5 weeks. 5. Probable Community-acquired pneumonia, treated on IV antibiotic. 6. Parotid gland cancer, status post resection. 7. Hypokalemia, much improved. 8. Chronic hyponatremia. 9. Marked debility, deconditioning, muscle weakness and wasting. GIL KELLY MD DR: NED/janet JOB#: [id number] / [id number]
[2019-11-04 23:36] VITALS: BP 100/64
[2019-11-05] MEDS: LEVOTHYROXINE 50 MCG TABLET PO SCH (05:48)
[2019-11-05 06:16] VITALS: BP 101/66
[2019-11-05 06:46] LABS: CALCIUM 8.6 mg/dL (8.5-10.1); CREATININE 0.5 mg/dL (0.7-1.3); GFR 170.2; POTASSIUM 4.3 mmol/L (3.5-5.1)
[2019-11-05] MEDS: LACTOBACILLUS RHAMNOSUS GG 1 CAPSULE. PO SCH (08:45)
[2019-11-05] MEDS: MULTIVITAMIN with MINERAL TABLET. PO SCH (08:45)
[2019-11-05] MEDS: CEFDINIR 300 MG CAPSULE PO SCH (08:45)
[2019-11-05] MEDS: POTASSIUM CHLORIDE 20 MEQ TABLET.ER. PO SCH (08:46)
[2019-11-05 09:00] VITALS: BP 101/66
[2019-11-05] MEDS: ATENOLOL 50 MG TABLET PO SCH (09:00)
--- NOTE | 2019-11-05 09:41 | DISCH ---
DISCHARGE ORDERS DISCHARGE DATE: Nov 05, 2019 FINAL DIAGNOSIS HCAP COPD LUNG CANCER DEBILITY AND DECONDITIONING CONDITION AT DISCHARGE: Stable Code Status: Full SNF STAY <30 DAYS: Yes POST DISCHARGE ORDERS: ACTIVITY ORDERS: Activity as tolerated DIET AFTER DISCHARGE: Regular FOLLOW-UP: FFOLLOW-UP WITH: PCP IN 7-10 DAYS OR SOONER IF NEEDED TREATMENT/EQUIPMENT ORDERS: ADAPTIVE EQUIPMENT NEEDED: None DISCHARGE MEDICATIONS: Home Meds Active Scripts Furosemide (LASIX) 20 Mg Tablet, 1 TAB PO DAILY for chf for 30 Days, #30 TAB 0 Refills Prov:AFTAB FRANCSICO MD 10/20/19 Atenolol (ATENOLOL ) 50 Mg Tablet, 50 MG PO DAILY for tachycardia for 30 Days, #30 TAB take one daily in AM Prov:MARTHA EUCEDA MD 10/12/19 Azithromycin (AZITHROMYCIN TABLET) 250 Mg Tablet, 250 MG PO DAILY for pneumonia for 7 Days, #7 TAB Prov:MARTHA EUCEDA MD 10/12/19 Reported Medications Multivitamin (MULTI VITAMIN DAILY) 1 Each Tablet, 1 TAB PO DAILY for supplement for 30 Days, #30 TAB 0 Refills 10/07/19 Levothyroxine Sodium (SYNTHROID) 50 Mcg Tablet, 1 TAB PO DAILY for thyroid 10/07/19 GIL KELLY MD Nov 05, 2019 09:41
--- NOTE | 2019-11-05 12:26 | DS ---
DATE OF DISCHARGE: HOSPITAL COURSE: The patient is a 59-year-old male patient who was admitted to [facility] on 10/24/2019 with a complaint of increasing shortness of breath and cough that has been going on for almost 3 weeks. Cough is productive of greenish sputum. He also gets very short of breath after just taking a few steps, has been extremely weak and fatigued easily and was admitted with community-acquired pneumonia, COPD exacerbation, acute on chronic hypoxic respiratory failure as well as lung cancer, status post right upper lobectomy. He was treated with IV antibiotic in the form of Rocephin and Zithromax and he did well from that point of view; however, he continued to be extremely weak and deconditioned. He definitely was unable to take care of himself at home and therefore, a decision was made to discharge him to a senior living facility to continue the process of rehabilitation prior to discharging home. PHYSICAL EXAMINATION: GENERAL: When I saw him today, he looked well and was clearly in no apparent distress. No pallor, jaundice, cyanosis or thyromegaly. No jugular venous distention or limb edema. VITAL SIGNS: His heart rate was 84, blood pressure was 101/66, temperature was 96, respiratory rate was 18 and oxygen saturation was 94%. HEAD, EYES, EARS, NOSE AND THROAT: Normocephalic, atraumatic. NECK: Supple. CARDIAC: Normal first and second heart sounds. No gallop or murmur. CHEST: Shows central trachea, equally reduced expansion, reduced air entry, vesicular sounds, very few scattered rhonchi, could not appreciate any crepitation. ABDOMEN: Distended, soft. NEUROLOGIC: He was grossly intact; however, the patient has marked muscle wasting and weakness. In fact, he is cachectic. His body mass index only 19.6. LABORATORY DATA: His lab work showed his most recent white cell count was 9500, hemoglobin 14, hematocrit 41, MCV 94 and platelet count 430,000. His most recent lab work this morning showed a serum sodium of 124, potassium 4.3, chloride 88, bicarbonate 30, anion gap of 6, BUN 5, creatinine 0.5, estimated GFR was 170 mL per minute, his glucose ____, calcium was 8.6. DISCHARGE MEDICATIONS: He was discharged to continue on atenolol 50 mg once a day, furosemide 20 mg once a day, levothyroxine sodium 50 mg once a day, and multivitamin 1 tablet once a day. He has completed the antibiotic treatment. FINAL DISCHARGE DIAGNOSES: 1. Acute on chronic diastolic congestive heart failure, improved. 2. Moderate to severe aortic stenosis. 3. Chronic obstructive pulmonary disease exacerbation. 4. Lung cancer, status post right upper lobectomy, status post chemotherapy every 2 weeks; however, the patient has not had any treatment for almost 4-5 weeks now because of extreme weakness and debility. 5. Probable community-acquired pneumonia, treated. 6. Parotid cancer, status post resection. 7. Hypokalemia, resolved. 8. Chronic hyponatremia. GIL KELLY MD DR: NED/janet JOB#: [id number] / [id number]
== END 2019-11-05 12:48 | DRG 291 ==
LOC: ER 17:35 → 1 SOUTH 19:25
PROVIDERS: ADMIT Internal Medicine; ATTEND Internal Medicine
DX: I11.0 Hypertensive heart disease with heart failure (principal); J18.9 Pneumonia, unspecified organism; J96.21 Acute and chronic respiratory failure with hypoxia; C34.90 Malignant neoplasm of unspecified part of unspecified bronchus or lung; E87.1 Hypo-osmolality and hyponatremia; J44.0 Chronic obstructive pulmonary disease with (acute) lower respiratory infection; J44.1 Chronic obstructive pulmonary disease with (acute) exacerbation; I50.33 Acute on chronic diastolic (congestive) heart failure; E03.9 Hypothyroidism, unspecified; E87.6 Hypokalemia; E86.1 Hypovolemia; I35.0 Nonrheumatic aortic (valve) stenosis; Z80.1 Family history of malignant neoplasm of trachea, bronchus and lung; Z82.49 Family history of ischemic heart disease and other diseases of the circulatory system; Z85.818 Personal history of malignant neoplasm of other sites of lip, oral cavity, and pharynx; Z85.828 Personal history of other malignant neoplasm of skin; Z87.891 Personal history of nicotine dependence; Z90.2 Acquired absence of lung [part of]; Z90.49 Acquired absence of other specified parts of digestive tract; Z92.21 Personal history of antineoplastic chemotherapy; Z85.46 Personal history of malignant neoplasm of prostate
CPT/HCPCS: 36415; 71045; 80048; 80053; 81001; 83880; 84484; 85025; 85027; 93005; 94640; 96361; 96374; J0456; J0696; J1650; J1940; J7620; 97110; 97116; 97530; 99285-25; J7030

== ENCOUNTER 2020-07-19 10:23 | Inpatient (IN) | payer OTHER ==
[~2020-07-19] VITALS: Ht 190.5 cm; Wt 64.8 kg
[2020-07-19 11:04] LABS: BASO % 0 % (0-3); EOS # 0.1 x10^3/uL (0.0-0.7); EOS % 1 % (0-3); HEMATOCRIT 46.4 % (39.0-53.0); LYMPH # 0.3 x10^3/uL (1.0-4.8); LYMPH % 4 % (24-48); MEAN CORPUSCULAR HEMOGLOBIN 32 pg (25-35); MEAN CORPUSCULAR HGB CONC 34 g/dL (31-37); MEAN CORPUSCULAR VOLUME 92 fL (79-100); MONO # 0.7 x10^3/uL (0.0-1.1); MONO % 8 % (0-9); NEUT # 8.3 x10^3uL (1.8-7.7); NEUT % 88 % (31-73); PLATELET COUNT 356 x10^3/uL (140-400); RED BLOOD COUNT 5.03 x10^6/uL (4.30-5.70); RED CELL DISTRIBUTION WIDTH 13.4 % (11.5-14.5); WHITE BLOOD COUNT 9.4 x10^3/uL (4.0-11.0)
--- NOTE | 2020-07-19 11:09 | PHYS DOC ---
Past History Past Medical History: Cancer, COPD, Hypothyroid, Pneumonia Additional Past Medical Histor: lung cancer currently on chemo; left parotid cancer; skin cancer Past Surgical History: Appendectomy, Other Additional Past Surgical Histo: RUL LOBECTOMY; PAROTID CA; SKIN CANCER Alcohol Use: None Drug Use: None General Adult EDM: Chief Complaint: SHORTNESS OF BREATH HPI: HPI: 60-year-old male past medical history significant for COPD on 2 L nasal cannula, hypothyroidism, history of lung cancer with right upper lobectomy 2 years ago (spontaneously stopped chemo in November due to COVID) with h/o pna last year, presents to the ED with complaints of progressive worsening shortness of breath for the past 6 days with anorexia/lack of appetite. Lives alone, does not believe he has been exposed to COVID. Reports he doesn't feel like he can care for himself. Cannot recall last steroid use. Has never been intubated before. EMR was reviewed, patient has EF of 55% on September 2019 echocardiogram. Review of Systems: Review of Systems: Constitutional: Denies fever or chills Eyes: Denies change in visual acuity HENT: Denies nasal congestion or sore throat Respiratory: Denies cough or hemoptysis Cardiovascular: Denies chest pain or edema GI: Denies abdominal pain, nausea, vomiting, bloody stools or diarrhea : Denies dysuria or hematuria Musculoskeletal: Denies back pain or joint pain Integument: Denies rash Neurologic: Denies headache, focal weakness or sensory changes Endocrine: Denies polyuria or polydipsia Lymphatic: Denies swollen glands Psychiatric: Denies depression or anxiety Heart Score: Risk Factors: Risk Factors: DM, Current or recent (<one month) smoker, HTN, HLP, family history of CAD, obesity. Risk Scores: Score 0 - 3: 2.5% MACE over next 6 weeks - Discharge Home Score 4 - 6: 20.3% MACE over next 6 weeks - Admit for Clinical Observation Score 7 - 10: 72.7% MACE over next 6 weeks - Early Invasive Strategies Allergies: Allergies: Allergies Coded Allergies Type Severity Reaction Last Updated Verified No Known Drug Allergies 10/20/19 No Physical Exam: PE: Constitutional: very thin/emaciated appearing, no acute distress, non-toxic appearance. [] HENT: Normocephalic, atraumatic, oropharynx moist, no oral exudates, nose normal. [] Eyes:EOMI, conjunctiva normal, no discharge. [] Neck: Normal range of motion, supple, no stridor. [] Cardiovascular: tachycardic, no murmur [] Lungs & Thorax: Bilateral breath sounds intact, decreased right breath sounds, no wheezing, some rales right lower lung , on 2L NC Abdomen: Bowel sounds normal, soft, no tenderness, no masses, no pulsatile masses. [] Skin: Warm, dry, no erythema, no rash. [] Back: No tenderness, no CVA tenderness. [] Extremities: No tenderness, no cyanosis, no clubbing, ROM intact, no edema. [] Neurologic: Alert and oriented X 3, normal motor function, normal sensory fu nction, no focal deficits noted. [] Psychologic: Affect normal, judgement normal, mood normal. [] Current Patient Data: Vital Signs: Vital Signs Date Time Temp Pulse Resp B/P (MAP) Pulse Ox O2 Delivery O2 Flow Rate FiO2 07/19/20 10:25 97.8 107 32 148/120 (129) 93 Room Air EKG: EKG: Sinus tachycardia at 109 bpm, no axis deviation, QTC 443, no T wave inversions, no elevations or ST depressions Radiology/Procedures: Radiology/Procedures: IMAGING REPORT Signed PATIENT: KRIS TERAN ACCOUNT: [id number] : 1960 LOCATION: ER AGE: 60 SEX: M EXAM STATUS: REG ER ORD. PHYSICIAN: MARYCHUY SIMON DO REASON: soa PROCEDURE: CHEST AP ONLY EXAM: AP View of the chest DATE: 07/19/2020 10:28 AM INDICATION: Shortness of air COMPARISON: 10/07/2019 CT 10/20/2019 radiograph FINDINGS/ IMPRESSION: The heart is not enlarged. Aorta is tortuous. Emphysematous changes are seen. Small to moderate bilateral pleural effusions. Airspace opacities in the right lung base and left upper lung are again seen. Biapical scarring. There is a spiculated appearance of the nodular opacity in the right lung base, suspicious for underlying mass measuring 5 cm. This can be further assessed by CT. No definite pneumothorax Electronically signed by: Carrillo Chang MD (07/19/2020 11:54 AM) [id number] DICTATED AND SIGNED BY: CARRILLO CHANG MD DATE: 07/19/20 [id number] CC: NATALIE KINNEY MD; MARYCHUY SIMON DO ~ IMAGING REPORT Signed PATIENT: KRIS TERAN ACCOUNT: [id number] : 1960 LOCATION: ER AGE: 60 SEX: M EXAM STATUS: REG ER ORD. PHYSICIAN: MARYCHUY SIMON DO REASON: OMNI 350,100ML IV.SOA.HX LUNG CA,LOBE REMOVAL SX PROCEDURE: CT ANGIOGRAPHY CHEST CTA OF THE CHEST WITH AND WITHOUT CONTRAST Clinical indications: Shortness of air. History of lung cancer and lobectomy. Technique: Noncontrast axial localizer was performed. After IV infusion of 100 cc of Omnipaque 350, helical CT scanning of the chest was performed using the CT pulmonary embolism protocol. A coronal MIP reconstruction was generated. PQRS compliance Statement One or more of the following individualized dose reduction techniques were utilized for this study: 1. Automated exposure control 2. Adjustment of the mA and/or kV according to patient size 3. Use of iterative reconstruction technique Comparison: July 08, 2019. Findings: No pulmonary embolism is evident. No focal aneurysmal dilatation or dissection of the thoracic aorta is seen. The heart size is normal and no pericardial effusion is evident. Mild calcified atheromatous disease of the coronary arteries is seen. Calcification of aortic valve leaflets is seen consistent with aortic valvular stenosis. Again seen is a loculated pleural fluid collection within the right apex which is unchanged. Again seen is a loculated pleural fluid collection within the right lung base which has not changed significantly. Again seen is fibrosis and cicatricial bronchiectasis of the left apex. Similar finding is seen involving the anterior upper aspect of the right lung field. There is a new focus of infiltrate or atelectasis involving the lateral right lung base. The previously seen groundglass lung infiltrate within the left lower lobe has resolved. Small nodular scar is present within the left lateral lung base which is unchanged. No pneumothorax is seen. Adherent mucus is seen within the left and right mainstem bronchi. No lytic process is seen. No adrenal mass is seen. IMPRESSION: No pulmonary embolism. Chronic changes as discussed above. However, there is a new finding of a lateral right lung base infiltrate or atelectasis. Adherent mucus within the right and left mainstem bronchi. Electronically signed by: Afshin Mancini MD (07/19/2020 2:14 PM) [id number] DICTATED AND SIGNED BY: AFSHIN MANCINI MD DATE: 07/19/20 1414 CC: NATALIE KINNEY MD; MARYCHUY SIMON DO ~ Course & Med Decision Making: Course & Med Decision Making Pertinent Labs and Imaging studies reviewed. (See chart for details) Concern for dyspnea and anorexia, right sided community acquired pneumonia with bl pleural effusions and right sided lung mass, covid test pending. Labs show acute on chronic hyponatremia. Trop wnl. CTA with no pe or aortic disease. Pt overall very malnourished and cachetic and reports difficulties caring for himself. Will admit to ICU for further medical management. I have spoken with the patient and/or caregivers. I have explained the patient's condition, diagnosis and treatment plan based on the information available to me at this time. I have answered the patient's and/or caregivers questions and answered any concerns. The patient and/or caregivers have as good an understanding of the patient's diagnosis, condition and treatment plan as can be expected at this point. The patient has been stabilized within the capability of the emergency department. The patient will be transported for further care and management or will be moved to an observation or inpatient service. I have communicated with the staff or medical practitioner taking over this patient's care. Critical Care: Authorized and Performed by: Marychuy Simon DO Total critical care time: approximately 30 minutes Due to a high probability of clinically significant, life threatening deterioration, the patient required my highest level of preparedness to intervene emergently and I personally spent this critical care time directly and personally managing the patient. This critical care time included obtaining a history; examining the patient; pulse oximetry; ventilator management if necessary; ordering and review of studies; arranging urgent treatment with development of a management plan; evaluation of patient's response to treatment; frequent reassessment; discussion with patient/family; and, discussions with other providers. This critical care time was performed to assess and manage the high probability of imminent, life-threatening deterioration that could result in multi-organ failure. It was exclusive of separately billable procedures and treating other patients and teaching time. Please see MDM section and the rest of the note for further information on patient assessment and treatment. Dragon Disclaimer: Dragon Disclaimer: This electronic medical record was generated, in whole or in part, using a voice recognition dictation system. Departure Departure: Impression: Primary Impression: Dyspnea Additional Impressions: Hyponatremia Failure to thrive CAP (community acquired pneumonia) Bilateral pleural effusion Mass of right lung Disposition: ADMITTED INPATIENT Admitting Physician: Quintin Crow Condition: STABLE Referrals: NATALIE KINNEY MD (PCP) Justification of Admission: Justification of Admission: Justification of Admission Dx: Yes Comments: hyponatremia MARYCHUY SIMON DO Jul 19, 2020 11:08
[2020-07-19] MEDS ORDERED: AZITHROMYCIN 500 MG in IV NORMAL SALINE 250ML 250 ML IV ONE (11:15)
[2020-07-19] MEDS ORDERED: IV NORMAL SALINE 1,000ML 1,000 ML IV ONE (11:15)
[2020-07-19 11:30] LABS: CALCIUM 9.6 mg/dL (8.5-10.1); CREATININE 0.4 mg/dL (0.7-1.3); GFR 219.4; TOTAL BILIRUBIN 2.3 mg/dL (0.2-1.0); TOTAL PROTEIN 8.7 g/dL (6.4-8.2)
[2020-07-19] MEDS ORDERED: IV NORMAL SALINE 250ML 250 ML ONE (11:40)
[2020-07-19] MEDS ORDERED: AZITHROMYCIN 500 MG VIAL. IV ONE (11:40)
[2020-07-19 11:46] LABS: ALBUMIN 3.6 g/dL (3.4-5.0); ALBUMIN/GLOBULIN RATIO 0.7 (1.0-1.7)
[2020-07-19 11:50] LABS: POTASSIUM 4.9 mmol/L (3.5-5.1)
--- NOTE | 2020-07-19 11:56 | RAD ---
EXAM: AP View of the chest DATE: 07/19/2020 10:28 AM INDICATION: Shortness of air COMPARISON: 10/07/2019 CT 10/20/2019 radiograph FINDINGS/ IMPRESSION: The heart is not enlarged. Aorta is tortuous. Emphysematous changes are seen. Small to moderate bilateral pleural effusions. Airspace opacities in the right lung base and left upper lung are again seen. Biapical scarring. There is a spiculated appearance of the nodular opacity in the right lung base, suspicious for underlying mass measuring 5 cm. This can be further assessed by CT. No definite pneumothorax Electronically signed by: Carrillo Connelly MD (07/19/2020 11:54 AM) [id number]
--- NOTE | 2020-07-19 12:11 | EKG ---
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
[2020-07-19] MEDS ORDERED: IOHEXOL 350 MG/ML 100 ML VIAL. IV ONE ×2 (13:00)
--- NOTE | 2020-07-19 14:16 | RAD ---
CTA OF THE CHEST WITH AND WITHOUT CONTRAST Clinical indications: Shortness of air. History of lung cancer and lobectomy. Technique: Noncontrast axial localizer was performed. After IV infusion of 100 cc of Omnipaque 350, helical CT scanning of the chest was performed using the CT pulmonary embolism protocol. A coronal MIP reconstruction was generated. PQRS compliance Statement One or more of the following individualized dose reduction techniques were utilized for this study: 1. Automated exposure control 2. Adjustment of the mA and/or kV according to patient size 3. Use of iterative reconstruction technique Comparison: July 08, 2019. Findings: No pulmonary embolism is evident. No focal aneurysmal dilatation or dissection of the thoracic aorta is seen. The heart size is normal and no pericardial effusion is evident. Mild calcified atheromatous disease of the coronary arteries is seen. Calcification of aortic valve leaflets is seen consistent with aortic valvular stenosis. Again seen is a loculated pleural fluid collection within the right apex which is unchanged. Again seen is a loculated pleural fluid collection within the right lung base which has not changed significantly. Again seen is fibrosis and cicatricial bronchiectasis of the left apex. Similar finding is seen involving the anterior upper aspect of the right lung field. There is a new focus of infiltrate or atelectasis involving the lateral right lung base. The previously seen groundglass lung infiltrate within the left lower lobe has resolved. Small nodular scar is present within the left lateral lung base which is unchanged. No pneumothorax is seen. Adherent mucus is seen within the left and right mainstem bronchi. No lytic process is seen. No adrenal mass is seen. IMPRESSION: No pulmonary embolism. Chronic changes as discussed above. However, there is a new finding of a lateral right lung base infiltrate or atelectasis. Adherent mucus within the right and left mainstem bronchi. Electronically signed by: Afshin Mancini MD (07/19/2020 2:14 PM) [id number]
--- NOTE | 2020-07-19 17:18 | HP ---
ADMIT DATE: 07/19/2020 ATTENDING PHYSICIAN: Dr. Euceda. CHIEF COMPLAINT: Shortness of breath. HISTORY OF PRESENT ILLNESS: The patient is a 60-year-old gentleman who has been living alone. He is quite cachectic. He is admitted through the ED with increasing shortness of breath and generalized weakness. Clinically, he is dehydrated and has not been able to take care of himself. He has some family, a son and some grandkids in [place], [place]. He does not have any history of exposure to COVID virus. In the ED, the chest x-ray demonstrated bilateral pleural effusions, greater on the right side. CT of the chest demonstrated recurrence of non-small cell cancer. There are lesions identified along with most likely malignant pleural effusion. He is dehydrated clinically. He also has a serum sodium of 118 mEq per liter. He is not on a diuretic. 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 He remains a full code, but I believe he is actively dying. He cannot manage himself. He is admitted then with dehydration, recurrent cancer and a right lower lobe pneumonia. PAST MEDICAL HISTORY: Significant for right upper lobe lobectomy at [facility] supposedly 2 years ago. Four years ago, he had a left parotid gland tumor resected along with other skin cancers on his nose. He has advanced COPD oxygen dependent, hypothyroidism and frequent episodes of pneumonia. He has been admitted several times in the past year, most recently in 09/2019. At that time, he had an echocardiogram showing an ejection fraction of 55%. CURRENT MEDICATIONS: Very simplify, he takes albuterol, Synthroid dosage, he was given Rocephin in the ED. ALLERGIES: He has no recorded drug allergies. SOCIAL HISTORY: Smoking history, heavy 2 packs a day for many years. No alcohol use. FAMILY HISTORY: Mom at age 74 of lung cancer. Father whereabouts and history is unknown. He is single, but he has several children living out of town. Supposedly, he retired a year ago working for the [employer]. REVIEW OF SYSTEMS: Significant for the dyspnea with minimal exertion. He has not had any orthopnea. No fevers, no chills. He has poor appetite. Minimal cough. All other systems reviewed and turned to be negative. PHYSICAL EXAMINATION: GENERAL: When I saw him, this is a pleasant, alert gentleman, but he appears very pale and cachectic. INITIAL VITAL SIGNS: In the ED showed a blood pressure of 123/62 mmHg, pulse is 94 and regular, temperature afebrile and his oxygen saturations are at 100% on 3 liters nasal cannula. HEENT: Head is without trauma. Pupils are reactive. There is a small lesion in the tip of his nose that is bandaged. It does not appear infected. His ears are normal. His orbits are sunken. His mucous membranes are dry. NECK: Supple, no bruits or thyromegaly. LUNGS: Bibasilar rales, more prominent on the right, shallow respirations. CARDIOVASCULAR: Showed distant heart tones. No gallops. Peripheral pulses are palpable and full. ABDOMEN: Soft, scaphoid, nontender, no organomegaly. EXTREMITIES: Showed significant muscle wasting. There is no edema. He has excoriations along the lower extremities. SKIN: Cool. NEUROLOGIC: Focally intact. No deficits. Speech was fluent. PERTINENT LABORATORY AND X-RAY STUDIES: The chest x-ray showed new 5 cm lesion in the right base with bilateral pleural effusions, greater on the right. CT of the chest demonstrated no evidence of pulmonary embolus. He has a calcific aortic valvular stenosis, fibrosis in the lungs, bronchiectasis, no pneumothorax is seen. There are bilateral pleural effusions with underlying mass consistent with new malignancy. His serum sodium is 118 mEq per liter. Hemoglobin and white counts were not particularly abnormal. His potassium is maintained. ASSESSMENT: 1. A 60-year-old gentleman with community-acquired pneumonia. 2. Bilateral pleural effusions, most likely malignant. 3. Non-small cell cancer of the lung with previous resection 2 years ago. 4. Recurrence of lung cancer. 5. Profound cachexia and dehydration. 6. 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 7. Advanced oxygen-dependent chronic obstructive pulmonary disease. 8. Protein-calorie malnutrition. PLAN: 1. Admit to the inpatient unit. 2. IV hydration. 3. Random urinary sodium. 4. Serial chemistries. If sodium does not improve, he may need a demeclocycline to blunt the effects of the ADH on the renal tubules. 5. Supplemental oxygen. 6. IV hydration. 7. He is going to discuss with his family. I do believe this patient is actively dying and certainly hospice care would be appropriate. MARTHA EUCEDA MD DR: LEANN/janet JOB#: [id number] / [id number] elver Goldstein Dr.
[2020-07-19 18:08] VITALS: BP 135/80
[2020-07-19] MEDS: IV NORMAL SALINE 1,000ML 1,000 ML IV SCH (18:20)
[2020-07-19] MEDS ORDERED: ALBU2.5V8 IH (18:25)
--- NOTE | 2020-07-19 18:28 | NUR ---
Pt admitted to ICU bed 6 per ED per EMS. PT is able to verbalize understanding of poc and orientation to unit. Pt was here in sep he reports. Since then has about a 40 # wt loss. Pt was doing chem, however has not see any doctors since december because of covid. PT reports his is not taking any medications, just inhaler. He has not see his son since jul, however, does communicate over the phone as the son is in [place]. He reports increased SOB and weakness at home. Has someone come in a few times per month to clean and get him necessities other dugan no other exposure. PT PUI until COVID back. PT does have a open wound on bottom. See pictures in chart. Julianna WOMACK
[2020-07-19] MEDS ORDERED: ALBUTEROL SULFATE 8GM INHALER. INH PRN (18:30)
--- NOTE | 2020-07-19 19:50 | NUR ---
Spoke with patient's sister, Noemy Cooper, briefly regarding patient current condition. She has agreed to be his emergency contact since she lives close and his son is in [place]; access code provided for confidentiality.
[2020-07-19 20:20] VITALS: BP 137/93
[2020-07-19] MEDS: MORPHINE SULFATE 4 MG/ML DISP.SYRIN. IV PRN ×2 (20:34→23:42)
[2020-07-19 21:00] VITALS: BP 92/49
[2020-07-19 22:00] VITALS: BP 103/69
[2020-07-19 23:01] VITALS: BP 114/70
[2020-07-19 23:50] VITALS: BP 128/79
[2020-07-20] VITALS (30 sets, daily range): BP systolic 70–126; BP diastolic 46–92
[2020-07-20] MEDS: IV NORMAL SALINE 1,000ML 1,000 ML IV SCH ×3 (04:23→18:12)
[2020-07-20] MEDS: LACTOBACILLUS RHAMNOSUS GG 1 CAPSULE. PO SCH ×2 (09:00→20:10)
[2020-07-20] MEDS: MORPHINE SULFATE 4 MG/ML DISP.SYRIN. IV PRN ×3 (09:08→18:50)
[2020-07-20 09:29] LABS: BASO # 0.1 x10^3/uL (0.0-0.2); BASO % 1 % (0-3); EOS # 0.1 x10^3/uL (0.0-0.7); EOS % 1 % (0-3); HEMATOCRIT 38.8 % (39.0-53.0); HEMOGLOBIN 13.3 g/dL (13.0-17.5); LYMPH # 0.1 x10^3/uL (1.0-4.8); LYMPH % 2 % (24-48); MEAN CORPUSCULAR HEMOGLOBIN 32 pg (25-35); MEAN CORPUSCULAR HGB CONC 34 g/dL (31-37); MEAN CORPUSCULAR VOLUME 92 fL (79-100); MONO # 0.5 x10^3/uL (0.0-1.1); MONO % 7 % (0-9); NEUT % 90 % (31-73); PLATELET COUNT 308 x10^3/uL (140-400); RED CELL DISTRIBUTION WIDTH 13.5 % (11.5-14.5); WHITE BLOOD COUNT 7.8 x10^3/uL (4.0-11.0)
--- NOTE | 2020-07-20 09:43 | NUR ---
PT is able to verbalize understanding of poc. PT was able to eat breakfast this am. Dr Tristin nelson will continue to monitor. Julianna GREGORIO
[2020-07-20 09:51] LABS: ALBUMIN 3.2 g/dL (3.4-5.0); ALBUMIN/GLOBULIN RATIO 0.8 (1.0-1.7); CALCIUM 8.9 mg/dL (8.5-10.1); CREATININE 0.8 mg/dL (0.7-1.3); GFR 98.6; POTASSIUM 3.5 mmol/L (3.5-5.1); TOTAL BILIRUBIN 1.2 mg/dL (0.2-1.0); TOTAL PROTEIN 7.4 g/dL (6.4-8.2)
--- NOTE | 2020-07-20 10:02 | PN ---
DATE: 07/20/2020 ATTENDING PHYSICIAN: Dr. Euceda. CHIEF COMPLAINT: Shortness of breath. SUBJECTIVE: He is doing better. He is less dyspneic. He feels better with IV hydration. He ate breakfast this morning. OBJECTIVE FINDINGS: Repeat chemistry has just been drawn and is pending at this time. I do not have a urine specimen for urinary sodium. This will be ordered again today. OBJECTIVE FINDINGS: VITAL SIGNS: Blood pressure today is 98/63, pulse is 91 and regular, oxygen saturation 94% on 3 liters of supplemental oxygen by nasal cannula. He is afebrile. HEENT: Head is without trauma. Orbits are less sunken. NECK: Supple. No stridor. LUNGS: Coarse rhonchi in the right base. CARDIOVASCULAR: Showed regular heart tones. No gallops. ABDOMEN: Soft, scaphoid, nontender, normoactive bowel sounds. EXTREMITIES: Showed the cachexia, muscle wasting. No edema. NEUROLOGIC: Alert. Speech is fluent. No focal deficits. PERTINENT LABORATORY DATA: Admission sodium yesterday was 118 mEq per liter. Repeat chemistries have been ordered, saline has been ordered. A urinary sodium is pending. IMAGING STUDIES: As in my HPI. ASSESSMENT: 1. This 60-year-old gentleman has recurrent malignancy. He had a non-small cell cancer resected, right upper lobe, 2 years ago. He now has recurrence in the right lower lobe with associated malignant pleural effusion and associated pneumonia. 2. Profound cachexia and dehydration. 3. Symptomatic hyponatremia, most likely on the basis of syndrome of inappropriate antidiuretic hormone secretion. This will be verified with an elevated urinary sodium without any diuretic use. 4. Advanced oxygen-dependent chronic obstructive pulmonary disease. 5. Protein-calorie malnutrition. 6. Most likely recurrence of non-small cell cancer of the lung. PLAN: 1. Continue IV hydration. 2. I am awaiting serial chemistries and urinary sodium. If the urinary sodium is indeed elevated, I will elect to put him on demeclocycline to blunt the effects of the ADH on the renal tubules. 3. Serial chemistries. 4. Supplemental oxygen. 5. Continue IV hydration. 6. I had a long discussion with the patient. He has agreed that he has reached the point of his life, he cannot take care of himself at home. I explained to him that he has a recurrent malignancy that will not respond any treatment. His prognosis is terminal. I basically explained to him he is dying. He is aware of the fact, although there has been some denial, he will contact his family. I strongly encouraged him to consider hospice care as well as understanding what the differences between a DNR status and a full code status. I believe that he needs some time to comprehend what we just discussed today and clinically he appears better for now. MARTHA EUCEDA MD DR: LEANN/janet JOB#: [id number] / [id number]
[2020-07-20] MEDS: diphenhydrAMINE HCL 25 MG CAPSULE PO PRN ×2 (11:36→20:35)
[2020-07-20] MEDS: DEMECLOCYCLINE HCL 150 MG TABLET. PO SCH ×2 (11:36→20:11)
[2020-07-20] MEDS: AZITHROMYCIN 500 MG in IV NORMAL SALINE 250ML 250 ML IV SCH (12:25)
[2020-07-20] MEDS ORDERED: IV NORMAL SALINE 1,000ML 1,000 ML IV ONE (14:00)
--- NOTE | 2020-07-20 14:00 | NUR ---
Dr Crow called regarding pt hypotension with Map 50's. He ordered 1 liter bolus then TRA fluids at 100/cc hour. Julianna GREGORIO
[2020-07-20] MEDS: HYDROCORTISONE 1% LOTION BOTTLE. TP PRN (18:50)
[2020-07-20] MEDS: POTASSIUM CHLORIDE 20 MEQ TABLET.ER. PO SCH (20:10)
[2020-07-21] VITALS (15 sets, daily range): BP systolic 94–124; BP diastolic 58–74
[2020-07-21] MEDS: IV NORMAL SALINE 1,000ML 1,000 ML IV SCH ×2 (05:16→16:47)
[2020-07-21] MEDS: MORPHINE SULFATE 4 MG/ML DISP.SYRIN. IV PRN ×3 (05:16→10:41)
[2020-07-21 06:37] LABS: BASO % 1 % (0-3); EOS # 0.2 x10^3/uL (0.0-0.7); EOS % 2 % (0-3); HEMATOCRIT 34.8 % (39.0-53.0); HEMOGLOBIN 11.7 g/dL (13.0-17.5); LYMPH # 0.2 x10^3/uL (1.0-4.8); LYMPH % 3 % (24-48); MEAN CORPUSCULAR HEMOGLOBIN 31 pg (25-35); MEAN CORPUSCULAR HGB CONC 34 g/dL (31-37); MEAN CORPUSCULAR VOLUME 93 fL (79-100); MONO # 0.9 x10^3/uL (0.0-1.1); MONO % 12 % (0-9); NEUT # 6.3 x10^3uL (1.8-7.7); NEUT % 83 % (31-73); PLATELET COUNT 253 x10^3/uL (140-400); RED BLOOD COUNT 3.74 x10^6/uL (4.30-5.70); RED CELL DISTRIBUTION WIDTH 13.5 % (11.5-14.5); WHITE BLOOD COUNT 7.6 x10^3/uL (4.0-11.0)
[2020-07-21 06:51] LABS: ALBUMIN 2.7 g/dL (3.4-5.0); ALBUMIN/GLOBULIN RATIO 0.8 (1.0-1.7); CALCIUM 8.4 mg/dL (8.5-10.1); CREATININE 0.5 mg/dL (0.7-1.3); GFR 169.6; POTASSIUM 3.3 mmol/L (3.5-5.1); TOTAL BILIRUBIN 0.6 mg/dL (0.2-1.0); TOTAL PROTEIN 6.3 g/dL (6.4-8.2)
[2020-07-21] MEDS: LACTOBACILLUS RHAMNOSUS GG 1 CAPSULE. PO SCH ×2 (09:26→19:54)
[2020-07-21] MEDS: DEMECLOCYCLINE HCL 150 MG TABLET. PO SCH ×2 (09:26→19:54)
[2020-07-21] MEDS: POTASSIUM CHLORIDE 20 MEQ TABLET.ER. PO SCH ×2 (09:26→19:54)
[2020-07-21] MEDS: HYDROCORTISONE 1% LOTION BOTTLE. TP PRN ×2 (09:32→16:33)
[2020-07-21] MEDS: AZITHROMYCIN 500 MG in IV NORMAL SALINE 250ML 250 ML IV SCH (12:05)
[2020-07-21] MEDS ORDERED: IV NORMAL SALINE 500ML 500 ML IV ONE (15:30)
[2020-07-21] MEDS: MORPHINE SULFATE 2 MG/ML DISP.SYRIN. IV PRN ×2 (15:38→19:54)
[2020-07-21] MEDS: diphenhydrAMINE HCL 25 MG CAPSULE PO PRN (16:33)
--- NOTE | 2020-07-21 21:00 | PN ---
DATE: SUBJECTIVE: The patient is a 60-year-old male patient who was admitted originally with shortness of breath who apparently has a small cell lung cancer for which he underwent right upper lobectomy 2 years ago. He spontaneously stopped chemotherapy in November due to COVID and who was seen in the Emergency Room with the complaint of progressive worsening of shortness of breath over the last 6 days with anorexia and lack of appetite. He lives alone. He does not believe that he has been exposed to COVID. He does not feel that he can care for himself and he was extensively evaluated and was admitted with severe hyponatremia. His serum sodium was 118. He has also mild lactic acidosis and was treated for community-acquired pneumonia as well as IV fluid for possible hypovolemic hyponatremia, although the possibility that this is due to syndrome of inappropriate ADH from the small cell carcinoma is highly likely. In fact, his serum sodium was high and he was started on demeclocycline 150 mg twice a day. In discussing his options with him, he clearly is unable to go back home as he can take care of himself and on last admission, he went to [facility]; however, he is a and the other option was presented by his therapeutic case manager from [facility] is that he can go on hospice and can be admitted to the [facility] and he opted for that option. PHYSICAL EXAMINATION: GENERAL: When I saw him this afternoon, he was clearly extremely pale, cachectic, markedly emaciated, but no jaundice, cyanosis or thyromegaly. No jugular venous distention. No limb edema. VITAL SIGNS: Her heart rate was 87, blood pressure was 94/58, temperature was 97.7, respiratory rate was 20 and oxygen saturation was 100% on 3 liters of oxygen. HEAD, EYES, EAR, NOSE AND THROAT: Showed normocephalic, atraumatic. NECK: Supple. CARDIAC: Normal first and second heart sounds. No gallop, rub or murmur. CHEST: Shows central trachea. Equal reduced chest expansion, air entry, scattered rhonchi bilaterally. I could not appreciate any crepitation. ABDOMEN: Scaphoid, soft, nontender. NEUROLOGIC: He was awake, alert. All his cranial nerves are intact. He moves extremities without difficulty; however, he has marked muscle wasting and weakness. LABORATORY DATA: As of this morning showed a white cell count of 7600, hemoglobin 11.7, hematocrit 34.8, MCV 93, and platelet count of 253,000 with normal manual differential. His chemistry this morning showed his sodium has improved to 130, potassium 3.3, chloride 93, bicarbonate 29, anion gap of 8, BUN 4, creatinine 0.5, estimated GFR was 169 mL per minute, his glucose 97, calcium was 8.4. Total bilirubin, AST and ALT are normal. Alkaline phosphatase slightly elevated. Total protein 6.3, albumin 2.7. His COVID by PCR was not detected. ASSESSMENT AND PLAN: 1. Recurrent non-small cell lung cancer resected the right upper lobe 2 years ago. He apparently stopped chemotherapy in November of this year. 2. Profound cachexia and dehydration. 3. Severe symptomatic hyponatremia. 4. Advanced oxygen dependent chronic obstructive pulmonary disease. 5. Protein-calorie malnutrition. The patient has opted for hospice and the therapeutic case manager is working to admit him to the [facility]. GIL KELLY MD DR: NED/janet JOB#: [id number] / [id number]
[2020-07-22] VITALS (21 sets, daily range): BP systolic 94–141; BP diastolic 60–109
[2020-07-22] MEDS: MORPHINE SULFATE 2 MG/ML DISP.SYRIN. IV PRN ×4 (02:07→19:19)
[2020-07-22] MEDS: IV NORMAL SALINE 1,000ML 1,000 ML IV SCH ×2 (02:08→13:06)
--- NOTE | 2020-07-22 05:27 | NUR ---
Pt is a/o x4, VSS, morphine affective for pain management, continent of urine, no bowel movement since 07/17 (pt does not c/o constipation), pt states he needs to discuss discharge and care with his family, informed pt that he can ask for assistance from CM if needed, pt verbalized understanding.
[2020-07-22 07:36] LABS: ALBUMIN 2.4 g/dL (3.4-5.0); ALBUMIN/GLOBULIN RATIO 0.7 (1.0-1.7); CALCIUM 7.9 mg/dL (8.5-10.1); CREATININE 0.5 mg/dL (0.7-1.3); GFR 169.6; POTASSIUM 3.3 mmol/L (3.5-5.1); TOTAL BILIRUBIN 0.5 mg/dL (0.2-1.0); TOTAL PROTEIN 5.7 g/dL (6.4-8.2)
[2020-07-22 07:45] LABS: BASO # 0.1 x10^3/uL (0.0-0.2); BASO % 1 % (0-3); EOS # 0.2 x10^3/uL (0.0-0.7); EOS % 4 % (0-3); HEMATOCRIT 30.1 % (39.0-53.0); HEMOGLOBIN 10.3 g/dL (13.0-17.5); LYMPH # 0.2 x10^3/uL (1.0-4.8); LYMPH % 4 % (24-48); MEAN CORPUSCULAR HEMOGLOBIN 31 pg (25-35); MEAN CORPUSCULAR HGB CONC 34 g/dL (31-37); MEAN CORPUSCULAR VOLUME 92 fL (79-100); MONO # 0.6 x10^3/uL (0.0-1.1); MONO % 11 % (0-9); NEUT # 4.2 x10^3uL (1.8-7.7); NEUT % 80 % (31-73); PLATELET COUNT 226 x10^3/uL (140-400); RED BLOOD COUNT 3.27 x10^6/uL (4.30-5.70); RED CELL DISTRIBUTION WIDTH 13.6 % (11.5-14.5); WHITE BLOOD COUNT 5.3 x10^3/uL (4.0-11.0)
[2020-07-22] MEDS: POTASSIUM CHLORIDE 20 MEQ TABLET.ER. PO SCH ×2 (09:36→19:18)
[2020-07-22] MEDS: LACTOBACILLUS RHAMNOSUS GG 1 CAPSULE. PO SCH ×2 (09:36→19:18)
[2020-07-22] MEDS: DEMECLOCYCLINE HCL 150 MG TABLET. PO SCH ×2 (09:36→19:18)
[2020-07-22] MEDS ORDERED: POTASSIUM CHLORIDE 20 MEQ TABLET.ER. PO ONE ×2 (11:50→16:00)
[2020-07-22] MEDS: AZITHROMYCIN 500 MG in IV NORMAL SALINE 250ML 250 ML IV SCH (13:01)
[2020-07-22] MEDS: POTASSIUM CL 40MEQ IN 0.9%NACL 1,000 ML IV SCH (16:33)
--- NOTE | 2020-07-22 17:31 | NUR ---
pt has been discussing with family and housing case manager today about discharge plan. plan is to work on D/C to [facility] here in [place] with help from housing case manager. pt agrees with this plan and states he is unable to go home and take care of himself. pt family has been in contact with pt about POC.
--- NOTE | 2020-07-22 17:42 | PN ---
DATE: 07/22/2020 SUBJECTIVE: The patient is resting, slightly propped up in bed, in no apparent respiratory distress. PHYSICAL EXAMINATION: GENERAL: He was extremely pale, cachectic, but no jaundice, cyanosis or thyromegaly. No jugular venous distention. No lower limb edema. VITAL SIGNS: His heart rate was 90, blood pressure was 94/60, temperature was 98.4, respiratory rate was 16, and oxygen saturation was 99% on 1 liter of oxygen. HEAD, EYES, EARS, NOSE AND THROAT: Showed normocephalic, atraumatic. NECK: Supple. CARDIAC: Normal first and second heart sounds. No gallop or murmur. CHEST: Clear to auscultation. No crepitation or rhonchi. ABDOMEN: Scaphoid, soft, nontender. NEUROLOGIC: He is awake, alert, responding appropriately. All cranial nerves are intact. He moves extremities without difficulty; although, he has marked muscle wasting and weakness. He is mostly bedbound. His intake over the last 24 hours was 4250, output was 2650. LABORATORY DATA: His most recent lab work showed a serum sodium 131, potassium 3.3, chloride 94, bicarbonate 34, anion gap of 3, BUN 4, creatinine was 0.5, estimated GFR was 169 mL per minute, his glucose 117, calcium was 7.9. Total bilirubin, AST, ALT, alkaline phosphatase were normal. Total protein was 5.7, albumin was 2.4. His white cell count was 5300, hemoglobin 10, hematocrit 30, MCV 92, and platelet count 226,000. Urinalysis showed urine random sodium was 31 and his coronavirus PCR was not detectable. ASSESSMENT: 1. Recurrent non-small cell cancer. He underwent resection of the right upper lobe about 2 years ago. He apparently stopped chemotherapy in November of this year. 2. Profound cachexia and dehydration. His body mass index only 17 kilograms square meter. 3. Severe symptomatic hyponatremia. 4. Advanced oxygen dependent chronic obstructive pulmonary disease. 5. Protein-calorie malnutrition. The patient has opted for hospice and apparently he was accepted to go to the [facility] to go on hospice care. He continued to have hypokalemia and hyponatremia, so we will continue with IV normal saline with potassium chloride. We will hopefully replenish electrolytes tomorrow and he can be discharged to [facility] if the arrangement has finalized. GIL KELLY MD DR: Donal JOB#: [id number] / [id number]
[2020-07-22] MEDS: HYDROCORTISONE 1% LOTION BOTTLE. TP PRN (18:15)
[2020-07-22] MEDS: diphenhydrAMINE HCL 25 MG CAPSULE PO PRN (19:17)
[2020-07-23] VITALS (14 sets, daily range): BP systolic 115–149; BP diastolic 67–95
[2020-07-23] MEDS: POTASSIUM CL 40MEQ IN 0.9%NACL 1,000 ML IV SCH (02:30)
[2020-07-23] MEDS: MORPHINE SULFATE 2 MG/ML DISP.SYRIN. IV PRN ×2 (02:34→10:37)
--- NOTE | 2020-07-23 05:45 | NUR ---
Pt a/o x3 w/increased confusion tonight (pt talking to television and stating to staff that he had something to tell them), VSS (see chart), pt continues to require morphine for pain management, pt voiding clear yellow urine, pt appears to be more depressed and withdrawn (pt did not want to talk to staff).
[2020-07-23 07:12] LABS: CALCIUM 8.9 mg/dL (8.5-10.1); CREATININE 0.5 mg/dL (0.7-1.3); GFR 169.6; POTASSIUM 4.6 mmol/L (3.5-5.1)
[2020-07-23] MEDS: DEMECLOCYCLINE HCL 150 MG TABLET. PO SCH (08:28)
[2020-07-23] MEDS: POTASSIUM CHLORIDE 20 MEQ TABLET.ER. PO SCH (08:28)
[2020-07-23] MEDS: LACTOBACILLUS RHAMNOSUS GG 1 CAPSULE. PO SCH (08:28)
[2020-07-23] MEDS: diphenhydrAMINE HCL 25 MG CAPSULE PO PRN (08:33)
[2020-07-23] MEDS: HYDROCORTISONE 1% LOTION BOTTLE. TP PRN (08:33)
--- NOTE | 2020-07-23 14:00 | DS ---
DATE OF DISCHARGE: 07/23/2020 HOSPITAL COURSE: The patient is a 60-year-old male patient with metastatic non-small cell cancer for which he underwent resection of the right upper lobe about 2 years ago. He apparently stopped chemotherapy in November of this year and was admitted with profound cachexia and dehydration, weight loss and body mass index only 17 kilograms per square meter. He has also severe symptomatic hyponatremia, advanced oxygen dependent chronic obstructive pulmonary disease, protein-calorie malnutrition. The patient is so weak that he cannot take care of himself and therefore, after a lengthy discussion, he opted to go for hospice care and was accepted at [facility]. PHYSICAL EXAMINATION: GENERAL: When I saw him today, he looked pale, cachectic, but not jaundiced, cyanosed or thyromegaly. No jugular venous distention. No limb edema. VITAL SIGNS: His heart rate was 85, blood pressure was 132/77, temperature was 98, respiratory rate 13 and oxygen saturation was 98% on 1 liter of oxygen. HEAD, EYES, EARS, NOSE AND THROAT: Showed normocephalic, atraumatic. NECK: Supple. HEART: Normal first and second heart sounds with no gallop, rub or murmur. CHEST: Showed central trachea, equally reduced expansion, reduced air entry. I could not appreciate any crepitation or rhonchi. ABDOMEN: Scaphoid, soft, nontender. NEUROLOGIC: He is awake, alert, responding appropriately. All cranial nerves are intact. He moves extremities without difficulty, although he has marked muscle wasting and weakness. He is mostly bedbound. LABORATORY DATA: Showed a white cell count 5300, hemoglobin 10, hematocrit 30, MCV 92, and platelet count 226,000. His serum sodium was 130, potassium 4.6, chloride 94, bicarbonate 32, anion gap of 4, BUN 2, creatinine 0.5, estimated GFR was 169 mL per minute, his glucose was 85, calcium was 8.9. DISCHARGE MEDICATIONS: He was discharged to [facility] for his comfort and end of life care, to continue on Roxanol 20 mg per mL solution to take 0.25-1 mL that is 5-20 mg p.o. sublingually every 4 hours and Ativan 2 mg per mL solution to take 0.5-1 mL that is 0.5-2 mg p.o. every 4 hours for anxiety. FINAL DIAGNOSES: 1. Stage IV non-small cell cancer. 2. Profound cachexia and dehydration. His body mass index only 17 kilograms per square meter. 3. Severe symptomatic hyponatremia. 4. Advanced oxygen dependent chronic obstructive pulmonary disease. 5. Protein-calorie malnutrition. GIL KELLY MD DR: NED/janet JOB#: [id number] / [id number]
--- NOTE | 2020-07-23 14:15 | NUR ---
Discharge Note: KRIS TERAN A ICU Report called to DARLINE Lebron for discharge instructions and discharge home medications reviewed. All questions have been answered and understanding verbalized. Pt discharged to hospice at [facility]. Pt wheeled to [facility] transportation and assisted into vehicle. pt discharged on 2L O2 on discharge. VSS.
== END 2020-07-23 14:15 | disposition hospice, home (50) | DRG 180 ==
LOC: ER 10:23 → ICU 15:45
PROVIDERS: ADMIT Hospitalist; ATTEND Internal Medicine
DX: C34.90 Malignant neoplasm of unspecified part of unspecified bronchus or lung (principal); E43 Unspecified severe protein-calorie malnutrition; J18.8 Other pneumonia, unspecified organism; J44.0 Chronic obstructive pulmonary disease with (acute) lower respiratory infection; E22.2 Syndrome of inappropriate secretion of antidiuretic hormone; E87.2 Acidosis; J91.0 Malignant pleural effusion; J98.11 Atelectasis; R64 Cachexia; Z68.1 Body mass index [BMI] 19.9 or less, adult; Z20.828 Contact with and (suspected) exposure to other viral communicable diseases; E03.9 Hypothyroidism, unspecified; E86.0 Dehydration; E87.6 Hypokalemia; R62.7 Adult failure to thrive; Z51.5 Encounter for palliative care; Z80.1 Family history of malignant neoplasm of trachea, bronchus and lung; Z85.818 Personal history of malignant neoplasm of other sites of lip, oral cavity, and pharynx; Z85.828 Personal history of other malignant neoplasm of skin; Z87.891 Personal history of nicotine dependence; Z90.2 Acquired absence of lung [part of]; Z90.49 Acquired absence of other specified parts of digestive tract; Z99.81 Dependence on supplemental oxygen; Z92.21 Personal history of antineoplastic chemotherapy
CPT/HCPCS: 36415; 71045; 71275; 80048; 80053; 83605; 83880; 84300; 84484; 85025; 87040; 93005; 96365; 96367; J0456; J0696; J2270; J7040; J7050; J7613; Q0163; Q9967; 99291-25; J7030; U0003-CS